=== PATIENT | male | born 1980 | race Caucasian/White ===

== ENCOUNTER 2019-07-06 21:27 | Emergency (ER) | payer SELFPAY ==
--- NOTE | 2019-07-06 23:29 | ER ---
Nurse's Notes [facility] Name: Basil Ibanez Age: 39 yrs Sex: Male : 1980 Arrival Date: 07/06/2019 Time: 21:30 Bed 27 Private MD: Diagnosis: Acute sinusitis Presentation: 07/06 22:36 Chief complaint: Patient states: BEEN SICK FOR FOUR WEEKS AND JUST CANT KICK IT. ls4 STARTED WITH FLU, THEN COUGH AND CONGESTION. STILL COUGHING, RUNNY NOSE. Coronavirus screen: The patient has NOT traveled to [place] in the past 14 days. Proceed with normal triage procedures. The patient has NOT had contact with known and/or suspected case of Coronavirus. Proceed with normal triage procedures. Ebola Screen: No symptoms or risks identified at this time. Initial Sepsis Screen: Does the patient meet any 2 criteria? No. Patient's initial sepsis screen is negative. Does the patient have a suspected source of infection? No. Patient's initial sepsis screen is negative. Risk Assessment: Do you want to hurt yourself or someone else? Patient reports no desire to harm self or others. Onset of symptoms is unknown. Care prior to arrival: BEEN TAKING OTC MEDS. Activity prior to arrival: None. Transition of care: patient was not received from another setting of care. 22:36 Method Of Arrival: Ambulatory ls4 22:36 Acuity: AC 3 ls4 Triage Assessment: 22:41 General: Appears uncomfortable, Behavior is calm, cooperative. Pain: Denies pain. ls4 Neuro: No deficits noted. Cardiovascular: No deficits noted. Respiratory: Reports cough that is productive, persistent Airway is patent Respiratory effort is even, unlabored, Respiratory pattern is regular, Breath sounds are clear bilaterally. the patient has moderate shortness of breath Denies shortness of breath at rest, on exertion, labored breathing, pain with respiration, pain with cough, pain with movement. GI: No deficits noted. : No deficits noted. Derm: No deficits noted. Musculoskeletal: No deficits noted. Historical: - Allergies: 22:41 No Known Allergies; ls4 - Home Meds: 22:41 None [Active]; ls4 - PMHx: 22:41 None; ls4 - PSHx: 22:41 None; ls4 - Immunization history:: Adult Immunizations up to date, Last tetanus immunization: unknown, Flu vaccine is not up to date. It has been more than one year since last vaccine. - Social history:: Smoking status: Patient reports the use of cigarette tobacco products, smokes one-half pack cigarettes per day, Patient/guardian denies using alcohol, street drugs. Screenin:45 Abuse screen: Denies threats or abuse. Denies injuries from another. Nutritional ls4 screening: No deficits noted. Tuberculosis screening: No symptoms or risk factors identified. Fall Risk None identified. Assessment: 22:44 General: SEE TRIAGE . ls4 23:45 Reassessment: Patient appears in no apparent distress at this time. No changes from ls4 previously documented assessment. Patient and/or family updated on plan of care and expected duration. Pain level reassessed. Patient is alert, oriented x 3, equal unlabored respirations, skin warm/dry/pink. Vital Signs: 22:13 BP 109 / 93; Pulse 97; Resp 17; Temp 97.9; Pulse Ox 98% ; lt1 23:45 BP 112 / 84; Pulse 78; Resp 14; Temp 98.0(O); Pulse Ox 98% on R/A; Pain 0/10; ls4 ED Course: 21:30 Patient arrived in ED. ag3 22:12 Africa Quarles, MARVIN is Primary Nurse. ls4 22:34 Lucero Ge F[facility]-C [facility]. kb 22:34 Fletcher Hernandez MD is Attending Physician. kb 22:41 Triage completed. ls4 22:41 Arm band placed on right wrist. ls4 22:45 Patient has correct armband on for positive identification. Bed in low position. Call ls4 light in reach. Side rails up X 1. Pulse ox on. NIBP on. 22:45 No provider procedures requiring assistance completed. ls4 22:59 Chest Pa And Lat (2 Views) XRAY In Process Unspecified. EDMS 23:46 Patient did not have IV access during this emergency room visit. ls4 Administered Medications: No medications were administered Outcome: 23:26 Discharge ordered by . kb 23:45 Discharged to home ambulatory. ls4 23:45 Condition: good 23:45 Discharge instructions given to patient, family, Instructed on discharge instructions, follow up and referral plans. Demonstrated understanding of instructions, follow-up care, medications, Prescriptions given X 1. 23:46 Patient left the ED. ls4 Signatures: Dispatcher [employer] EDLucero Ford, MARKET ASSET PROTECTION MANAGER-C MARKET ASSET PROTECTION MANAGER-Ckb Mague Ochoa ag3 Africa Quarles, RN RN ls4 Ekaterina Mccallum lt1 Corrections: (The following items were deleted from the chart) 23:46 23:42 Discharged to halfway. Report called to MINE ANGEL ls4 ls4
--- NOTE | 2019-07-06 23:29 | EDPHYS ---
Physician Documentation [facility] Name: Basil Ibanez Age: 39 yrs Sex: Male : 1980 Arrival Date: 07/06/2019 Time: 21:30 Bed 27 Private MD: ED Physician Fletcher Hernandez HPI: 07/06 23:33 This 39 yrs old Male presents to ER via Ambulatory with complaints of Cough. kb 23:33 The patient or guardian reports cough, that is intermittent, described as moderate, kb with no sputum, flu symptoms, low-grade fever. Onset: The symptoms/episode began/occurred 4 week(s) ago. Severity of symptoms: At their worst the symptoms were moderate, in the emergency department the symptoms are unchanged. Modifying factors: The symptoms are alleviated by nothing, the symptoms are aggravated by nothing. Associated signs and symptoms: Pertinent positives: fever, rhinorrhea, sore throat. The patient has not experienced similar symptoms in the past. The patient has not recently seen a physician. Pt reports he has been sick for 4 weeks. Reports it started out as the flu and then progressed. Reports fever subsided last week, but continues to have cough and congestion. Historical: - Allergies: 22:41 No Known Allergies; ls4 - Home Meds: 22:41 None [Active]; ls4 - PMHx: 22:41 None; ls4 - PSHx: 22:41 None; ls4 - Immunization history:: Adult Immunizations up to date, Last tetanus immunization: unknown, Flu vaccine is not up to date. It has been more than one year since last vaccine. - Social history:: Smoking status: Patient reports the use of cigarette tobacco products, smokes one-half pack cigarettes per day, Patient/guardian denies using alcohol, street drugs. ROS: 23:30 Neck: Negative for injury, pain, and swelling, Cardiovascular: Negative for chest pain, kb palpitations, and edema, Abdomen/GI: Negative for abdominal pain, nausea, vomiting, diarrhea, and constipation, Back: Negative for injury and pain, MS/Extremity: Negative for injury and deformity, Skin: Negative for injury, rash, and discoloration, Neuro: Negative for headache, weakness, numbness, tingling, and seizure. 23:30 Constitutional: Positive for fever. 23:30 ENT: Positive for rhinorrhea, sinus congestion. 23:30 Respiratory: Positive for cough, Negative for dyspnea on exertion, hemoptysis, orthopnea, pleurisy, shortness of breath, sputum production, wheezing. Exam: 23:32 Constitutional: This is a well developed, well nourished patient who is awake, alert, kb and in no acute distress. Head/Face: Normocephalic, atraumatic. ENT: Nares patent. No nasal discharge, no septal abnormalities noted. Tympanic membranes are normal and external auditory canals are clear. Oropharynx with no redness, swelling, or masses, exudates, or evidence of obstruction, uvula midline. Mucous membranes moist. Neck: Trachea midline, no thyromegaly or masses palpated, and no cervical lymphadenopathy. Supple, full range of motion without nuchal rigidity, or vertebral point tenderness. No Meningismus. Chest/axilla: Normal chest wall appearance and motion. Nontender with no deformity. No lesions are appreciated. Cardiovascular: Regular rate and rhythm with a normal S1 and S2. No gallops, murmurs, or rubs. Normal PMI, no JVD. No pulse deficits. Respiratory: Lungs have equal breath sounds bilaterally, clear to auscultation and percussion. No rales, rhonchi or wheezes noted. No increased work of breathing, no retractions or nasal flaring. Abdomen/GI: Soft, non-tender, with normal bowel sounds. No distension or tympany. No guarding or rebound. No evidence of tenderness throughout. Skin: Warm, dry with normal turgor. Normal color with no rashes, no lesions, and no evidence of cellulitis. MS/ Extremity: Pulses equal, no cyanosis. Neurovascular intact. Full, normal range of motion. Neuro: Awake and alert, GCS 15, oriented to person, place, time, and situation. Cranial nerves II-XII grossly intact. Motor strength 5/5 in all extremities. Sensory grossly intact. Cerebellar exam normal. Normal gait. Vital Signs: 22:13 BP 109 / 93; Pulse 97; Resp 17; Temp 97.9; Pulse Ox 98% ; lt1 23:45 BP 112 / 84; Pulse 78; Resp 14; Temp 98.0(O); Pulse Ox 98% on R/A; Pain 0/10; ls4 MDM: 22:34 Patient medically screened. kb 23:30 Data reviewed: vital signs, nurses notes. Data interpreted: Pulse oximetry: on room air kb is 98 %. Interpretation: normal. Counseling: I had a detailed discussion with the patient and/or guardian regarding: the historical points, exam findings, and any diagnostic results supporting the discharge/admit diagnosis, lab results, radiology results, the need for outpatient follow up, a family practitioner, to return to the emergency department if symptoms worsen or persist or if there are any questions or concerns that arise at home. 07/06 22:48 Order name: Strep; Complete Time: 23:28 kb 07/06 23:26 Order name: Throat Culture EDCA 07/06 22:43 Order name: Chest Pa And Lat (2 Views) XRAY kb Administered Medications: No medications were administered Disposition: 07/07 01:53 Co-signature as Attending Physician, Fletcher Hernandez MD. khoa Disposition: 07/06/19 23:26 Discharged to Home. Impression: Acute sinusitis. - Condition is Stable. - Discharge Instructions: Sinusitis, Adult, [id number]. - Prescriptions for Augmentin 875- 125 mg Oral Tablet - take 1 tablet by ORAL route every 12 hours for 10 days; 20 tablet. - Medication Reconciliation Form, Thank You Letter, Antibiotic Education, Prescription Opioid Use form. - Follow up: Private Physician; When: 2 - 3 days; Reason: Recheck today's complaints, Continuance of care, Re-evaluation by your physician. Follow up: Emergency Department; When: As needed; Reason: Worsening of condition. Signatures: Dispatcher [employer] [facility] Lucero Ge, REEFER TRUCK DRIVER-C REEFER TRUCK DRIVER-Ckb Fletcher Hernandez MD MD pkl Africa Quarles, RN RN ls4 Corrections: (The following items were deleted from the chart) 07/06 23:46 23:26 07/06/2019 23:26 Discharged to Home. Impression: Acute sinusitis. Condition is ls4 Stable. Forms are Medication Reconciliation Form, Thank You Letter, Antibiotic Education, Prescription Opioid Use. Follow up: Private Physician; When: 2 - 3 days; Reason: Recheck today's complaints, Continuance of care, Re-evaluation by your physician. Follow up: Emergency Department; When: As needed; Reason: Worsening of condition. kb
[2019-07-07 00:41] VITALS: O2SAT 98
[2019-07-07 00:43] VITALS: BP 112/84; TEMP 98
--- NOTE | 2019-07-07 08:25 | RAD REPORT ---
EXAM DESCRIPTION: RAD - Chest Pa And Lat (2 Views) - 07/06/2019 11:00 pm CLINICAL HISTORY: Cough;Congestion COMPARISON: CHEST PA AND LAT 2 VIEW dated 10/25/2008 TECHNIQUE: Frontal and lateral views of the chest were obtained. FINDINGS: The lungs are clear of a focal mass or consolidation. Interstitial pattern is similar or s lightly increased from 2009 remote imaging. No peribronchial thickening seen. Hilar regions are simil ar to comparison. Heart size is normal and central vasculature is within normal limits. No pleural effusion or pneumothorax seen. No acute bony finding noted. No aortic abnormality. IMPRESSION: No acute cardiopulmonary process. Lung parenchymal pattern is not substantially different from comparison. Very minimal component of in terstitial edema or infiltrate cannot be excluded.
== END 2019-07-06 23:46 | disposition home or self-care (01) ==
LOC: ER 21:27
DX: J01.90 Acute sinusitis, unspecified (principal); F17.210 Nicotine dependence, cigarettes, uncomplicated
CPT/HCPCS: 71046; 87070; 87081; 99283

== ENCOUNTER 2019-07-27 19:27 | Emergency (ER) | payer SELFPAY ==
--- NOTE | 2019-07-27 20:13 | RAD REPORT ---
EXAM DESCRIPTION: RAD - Chest Single View - 07/27/2019 8:02 pm CLINICAL HISTORY: fever, cough Chest pain. COMPARISON: Chest Pa And Lat (2 Views) dated 07/06/2019; CHEST PA AND LAT 2 VIEW dated 10/25/2008 FINDINGS: Portable technique limits examination quality. The lungs are grossly clear. The heart is normal in size. No displaced fractures. IMPRESSION: No acute intrathoracic process suspected.
[2019-07-27] MEDS ORDERED: LEVALBUTEROL 1.25 MG/3 ML NEB ONE (20:28)
[2019-07-27] MEDS ORDERED: IBUPROFEN 100 MG/5 ML UCUP ONE (20:37)
[2019-07-27] MEDS ORDERED: dexAMETHasone 4 MG/ML VIAL ONE (21:49)
--- NOTE | 2019-07-27 22:08 | EDPHYS ---
Physician Documentation [facility] Name: Basil Ibanez Age: 39 yrs Sex: Male : 1980 Arrival Date: 07/27/2019 Time: 19:30 Bed 15 Private MD: ED Physician Bobo Estrada HPI: 07/26 20:06 This 39 yrs old Male presents to ER via Ambulatory with complaints of jmm Productive Cough. 20:06 The patient or guardian reports cough. Onset: The symptoms/episode began/occurred jmm gradually, 1 month(s) ago. Modifying factors: The symptoms are alleviated by nothing, the symptoms are aggravated by nothing. Associated signs and symptoms: Pertinent positives: fever, sore throat. This is a 39 year old male with no chronic medical conditions that presents to the ED with complaints of sore throat, cough, beginning approx 1 month ago. Symptoms resolved after abx but have returned over the past week. Denies recent travel, denies known infectious exposure to covid. . Historical: - Allergies: 21:40 No Known Allergies; mg2 - Home Meds: 21:40 None [Active]; mg2 - PMHx: 21:40 None; mg2 - PSHx: 21:40 None; mg2 - Immunization history:: Flu vaccine is not up to date. - Social history:: Smoking status: Patient reports the use of cigarette tobacco products, smokes one-half pack cigarettes per day. ROS: 20:06 Constitutional: Positive for fever. jmm 20:06 ENT: Positive for sore throat. 20:06 Respiratory: Positive for cough. 20:06 All other systems are negative. Exam: 20:06 Constitutional: This is a well developed, well nourished patient who is awake, alert, jmm and in no acute distress. Head/Face: atraumatic. Eyes: EOMI, no conjunctival erythema appreciated 20:06 Chest/axilla: Normal chest wall appearance and motion. 20:06 Abdomen/GI: Non distended, soft Back: Normal ROM Skin: General appearance color normal MS/ Extremity: Moves all extremities, no obvious deformities appreciated, no edema noted to the lower extremities Neuro: Awake and alert, normal gait Psych: Behavior is normal, Mood is normal, Patient is cooperative and pleasant 20:06 ENT: Posterior pharynx: erythema, that is mild. 20:06 Cardiovascular: Rate: normal, Rhythm: regular, Pulses: no pulse deficits are appreciated. 20:06 Respiratory: the patient does not display signs of respiratory distress, Respirations: normal, Breath sounds: are clear throughout. Vital Signs: 19:48 BP 142 / 91; Pulse 88; Resp 18; Temp 99.1; Pulse Ox 100% on R/A; Weight 99.79 kg; mg2 Height 5 ft. 9 in. (175.26 cm); 22:16 BP 122 / 87; Pulse 89; Resp 18; Temp 98.5; Pulse Ox 100% on R/A; mg2 19:48 Body Mass Index 32.49 (99.79 kg, 175.26 cm) mg2 MDM: 19:52 Patient medically screened. [facility] 22:06 Data reviewed: vital signs, nurses notes. Counseling: I had a detailed discussion with [facility] the patient and/or guardian regarding: the historical points, exam findings, and any diagnostic results supporting the discharge/admit diagnosis, lab results, radiology results, the need for outpatient follow up, to return to the emergency department if symptoms worsen or persist or if there are any questions or concerns that arise at home. ED course: Patient states he feels much better. Lungs CTA on reevaluation. Patient is alert and non toxic in appearance in the ED. Patient is otherwise given strict return precautions. Patient understood and agrees with the plan of care. . 07/26 19:53 Order name: Flu; Complete Time: 20:[address] [facility] 07/26 19:53 Order name: Strep; Complete Time: 20:[address] [facility] 07/26 19:53 Order name: Chest Single View XRAY; Complete Time: 20:[address] [facility] 07/26 20:55 Order name: Throat Culture EDMS Administered Medications: 20:35 Drug: Xopenex (3) 1.25 mg Route: Inhalation; mg2 21:42 Follow up: Response: No adverse reaction mg2 21:54 Drug: Decadron 10 mg Route: IM; Site: right gluteus; mg2 22:17 Follow up: Response: No adverse reaction mg2 Disposition: 07/27 12:05 Co-signature as Attending Physician, Bobo Estrada MD I agree with the assessment and loyda plan of care. Disposition: 07/27/19 22:07 Discharged to Home. Impression: Acute bronchitis, Acute pharyngitis. - Condition is Stable. - Discharge Instructions: Acute Bronchitis, Adult, Pharyngitis. - Prescriptions for Zithromax Z- Jaswinder 250 mg Oral Tablet - take 1 tablet by ORAL route as directed for 5 days Day 1 - take two (2) tablets one time. Day 2, 3, 4 , 5 take one (1) tablet once daily.; 6 tablet. Albuterol Sulfate 90 mcg/actuation - inhale 1-2 puff by INHALATION route every 4-6 hours; 1 Inhaler. - Medication Reconciliation Form, Thank You Letter, Antibiotic Education, Prescription Opioid Use, Work release form form. - Follow up: Private Physician; When: 2 - 3 days; Reason: Recheck today's complaints, Continuance of care, Re-evaluation by your physician. - Notes: Please self quarantine for 14 days Return to the emergency department if you develop worsening symptoms, increased shortness of breath, chest pain or any other concerning symptoms. Signatures: Dispatcher [employer] EDMS Bobo Estrada MD MD cha Mickail, Joel, PA PA jmm Gardose, Michele, RN RN mg2 Corrections: (The following items were deleted from the chart) 07/26 22:17 22:07 07/27/2019 22:07 Discharged to Home. Impression: Acute bronchitis; Acute mg2 pharyngitis. Condition is Stable. Forms are Work release form, Medication Reconciliation Form, Thank You Letter, Antibiotic Education, Prescription Opioid Use. Follow up: Private Physician; When: 2 - 3 days; Reason: Recheck today's complaints, Continuance of care, Re-evaluation by your physician. ethan
--- NOTE | 2019-07-27 22:08 | ER ---
Nurse's Notes [facility] Name: Basil Ibanez Age: 39 yrs Sex: Male : 1980 Arrival Date: 07/27/2019 Time: 19:30 Bed 15 Private MD: Diagnosis: Acute bronchitis;Acute pharyngitis Presentation: 07/26 19:48 Chief complaint: Patient states: margo have cough and fever for almost 2 months now, i mg2 was here 1 month ago and did the cxray and sent home with abx, got better for a week and i am sick again. i have productive cough and my chest feels tight everytime i cough. Coronavirus screen: The patient has NOT traveled to a country currently being monitored by the [facility] within the last 14 days. Proceed with normal triage procedures. The patient has NOT had contact with any known and/or suspected case of coronavirus. Proceed with normal triage procedures. Ebola Screen: No symptoms or risks identified at this time. Initial Sepsis Screen: Does the patient meet any 2 criteria? No. Patient's initial sepsis screen is negative. Does the patient have a suspected source of infection? No. Patient's initial sepsis screen is negative. Risk Assessment: Do you want to hurt yourself or someone else? Patient reports no desire to harm self or others. 19:48 Method Of Arrival: Ambulatory mg2 19:48 Acuity: AC 3 mg2 Triage Assessment: 21:40 General: Appears in no apparent distress. comfortable, Behavior is calm, cooperative. mg2 Respiratory: Onset: The symptoms/episode began/occurred gradually, the patient has mild shortness of breath. Historical: - Allergies: 21:40 No Known Allergies; mg2 - Home Meds: 21:40 None [Active]; mg2 - PMHx: 21:40 None; mg2 - PSHx: 21:40 None; mg2 - Immunization history:: Flu vaccine is not up to date. - Social history:: Smoking status: Patient reports the use of cigarette tobacco products, smokes one-half pack cigarettes per day. Screenin:39 Abuse screen: Denies threats or abuse. Denies injuries from another. Nutritional mg2 screening: No deficits noted. Tuberculosis screening: No symptoms or risk factors identified. Fall Risk None identified. Assessment: 20:00 General: Appears in no apparent distress. comfortable. Pain: Denies pain. Neuro: Level mg2 of Consciousness is awake, alert, obeys commands, Oriented to person, place, time, situation. Cardiovascular: Rhythm is sinus rhythm. Respiratory: Airway is patent Respiratory effort is even, unlabored, Respiratory pattern is regular, symmetrical, Breath sounds are clear bilaterally. in mediastinum, right upper lobe, left upper lobe, right middle lobe, left lower lobe and right lower lobe. Respiratory: Reports cough that is productive. GI: No signs and/or symptoms were reported involving the gastrointestinal system. : No signs and/or symptoms were reported regarding the genitourinary system. EENT: No signs and/or symptoms were reported regarding the EENT system. Derm: Skin is intact, is healthy with good turgor, Skin is pink, warm \T\ dry. normal. Musculoskeletal: Circulation, motion, and sensation intact. Capillary refill < 3 seconds. Vital Signs: 19:48 BP 142 / 91; Pulse 88; Resp 18; Temp 99.1; Pulse Ox 100% on R/A; Weight 99.79 kg; mg2 Height 5 ft. 9 in. (175.26 cm); 22:16 BP 122 / 87; Pulse 89; Resp 18; Temp 98.5; Pulse Ox 100% on R/A; mg2 19:48 Body Mass Index 32.49 (99.79 kg, 175.26 cm) mg2 ED Course: 19:30 Patient arrived in ED. cl3 19:40 Macario Connro, RN is Primary Nurse. mg2 19:44 Leonard Garcia PA is PHCP. jm 19:44 Bobo Estrada MD is Attending Physician. [facility] 19:52 Triage completed. mg2 19:52 Arm band placed on. mg2 20:02 Chest Single View XRAY In Process Unspecified. EDMS 21:39 Patient has correct armband on for positive identification. mg2 21:39 No provider procedures requiring assistance completed. Patient did not have IV access mg2 during this emergency room visit. Administered Medications: 20:35 Drug: Xopenex (3) 1.25 mg Route: Inhalation; mg2 21:42 Follow up: Response: No adverse reaction mg2 21:54 Drug: Decadron 10 mg Route: IM; Site: right gluteus; mg2 22:17 Follow up: Response: No adverse reaction mg2 Outcome: 22:07 Discharge ordered by . jmm 22:16 Discharged to home ambulatory. mg2 22:16 Condition: stable 22:16 Discharge instructions given to patient, Instructed on discharge instructions, follow up and referral plans. medication usage, Demonstrated understanding of instructions, follow-up care, medications, Prescriptions given X 2. 22:17 Patient left the ED. mg2 Signatures: Dispatcher [employer] EDLeonard Patton PA PA jmm Gardose, Michele, RN RN mg2 Mercedes Em cl3
== END 2019-07-27 22:17 | disposition home or self-care (01) ==
LOC: ER 19:27
DX: J20.9 Acute bronchitis, unspecified (principal); J02.9 Acute pharyngitis, unspecified; F17.210 Nicotine dependence, cigarettes, uncomplicated
CPT/HCPCS: 71045; 87070; 87081; 87804; 96372; 99284

== ENCOUNTER 2022-12-20 13:45 | Emergency (ER) | payer OTHER ==
[2022-12-20] MEDS ORDERED: IBUPROFEN 400 MG TAB ONE (14:46)
[2022-12-20] MEDS ORDERED: IBUPROFEN 200 MG TAB PO ONE (14:46)
--- NOTE | 2022-12-20 15:11 | EDPHYS ---
Physician Documentation [facility] Name: Basil Ibanez Age: 42 yrs Sex: Male : 1980 Arrival Date: 12/20/2022 Time: 13:45 Bed 19 Private MD: ED Physician Haroldo Rodriguez HPI: 12/20 15:09 This 42 yrs old Male presents to ER via Ambulatory with complaints of Cough, Congestion.kb 15:09 The patient or guardian reports cough, flu symptoms. Onset: The symptoms/episode kb began/occurred 6 day(s) ago. Severity of symptoms: At their worst the symptoms were moderate, in the emergency department the symptoms are unchanged. Modifying factors: The symptoms are alleviated by nothing, the symptoms are aggravated by nothing. Associated signs and symptoms: Pertinent positives: fever, rhinorrhea, Pertinent negatives: sore throat, vomiting. The patient has not experienced similar symptoms in the past. The patient has not recently seen a physician. Pt reports cough, congestion, fever and post-tussive vomiting that started on Wednesday. Historical: - Allergies: 14:14 No Known Allergies; nj1 - PMHx: 14:14 Hypertensive disorder; nj1 - PSHx: 14:14 None; nj1 - Immunization history:: Client reports having NOT received the Covid vaccine. - Social history:: Smoking status: Patient reports the use of cigarette tobacco products, smokes one pack cigarettes per day. ROS: 15:08 Abdomen/GI: Negative for abdominal pain, nausea, vomiting, diarrhea, and constipation. kb 15:08 Constitutional: Positive for body aches, chills, fatigue, fever, malaise. 15:08 ENT: Positive for rhinorrhea, sinus congestion. 15:08 Respiratory: Positive for cough. 15:08 All other systems are negative. Exam: 15:08 Constitutional: This is a well developed, well nourished patient who is awake, alert, kb and in no acute distress. Head/Face: Normocephalic, atraumatic. ENT: Moist Mucous membranes Cardiovascular: Regular rate and rhythm with a normal S1 and S2. No gallops, murmurs, or rubs. No pulse deficits. Respiratory: Respirations even and unlabored. No increased work of breathing. Talking in full sentences Abdomen/GI: Soft, non-tender. No distention Skin: Warm, dry with normal turgor. Normal color. MS/ Extremity: Pulses equal, no cyanosis. Neurovascular intact. Full, normal range of motion. Neuro: Awake and alert, GCS 15, oriented to person, place, time, and situation. Moves all extremities. Normal gait. Vital Signs: 14:10 BP 165 / 105; Pulse 90; Resp 18; Temp 99.1(TE); Pulse Ox 98% ; Weight 90.72 kg; Height nj1 5 ft. 8 in. ; 15:46 BP 146 / 90; Pulse 89; Resp 15; Temp 98.7(O); Pulse Ox 98% ; jl7 14:10 Body Mass Index 30.41 (90.72 kg, 172.72 cm) nj1 MDM: 13:58 Patient medically screened. kb 15:08 Differential Diagnosis: Bronchitis Influenza Upper Respiratory Infection Viral Syndrome kb Pneumonia. Data reviewed: vital signs, nurses notes. I considered the following discharge prescriptions or medication management in the emergency department I discussed and recommended Over The Counter medications, Antibiotics: At this time antibiotics are not recommended. Test considered but Not performed: X-ray: chest x-ray considered, but lungs are clear bilaterally, o2 sat 98%. Counseling: I had a detailed discussion with the patient and/or guardian regarding: the historical points, exam findings, and any diagnostic results supporting the discharge/admit diagnosis, lab results, the need for outpatient follow up, a family practitioner, to return to the emergency department if symptoms worsen or persist or if there are any questions or concerns that arise at home. 12/20 14:11 Order name: Flu; Complete Time: 14:48 kb 12/20 14:11 Order name: COVID-19 SARS RT PCR; Complete Time: 15:03 kb Administered Medications: 14:40 Drug: Ibuprofen PO 600 mg Route: PO; nj1 15:46 Follow up: Response: Temperature is decreased jl7 Disposition Summary: 12/20/22 15:10 Discharge Ordered Location: Home Condition: Stable kb Diagnosis - Acute upper respiratory infection, unspecified kb Followup: kb - With: Emergency Department - When: As needed - Reason: Worsening of condition Followup: kb - With: Private Physician - When: 2 - 3 days - Reason: Recheck today's complaints, Continuance of care, Re-evaluation by your physician Discharge Instructions: - Discharge Summary Sheet kb - Upper Respiratory Infection, Adult, [id number] kb - Viral Respiratory Infection, [id number] kb Forms: - Medication Reconciliation Form kb - Thank You Letter kb - Antibiotic Education kb - Prescription Opioid Use kb - Patient Portal Instructions kb - Leadership Thank You Letter kb Prescriptions: - Tessalon Perles 100 mg Oral Capsule - take 1 capsule by ORAL route every 8 hours As needed; 15 capsule; Refills: 0, kb Product Selection Permitted Signatures: Dispatcher [employer] EDLucero Ford, CHARISC STEAMTABLE ATTENDANT RAILROAD-Tammy Caraballo, RN RN nj1 Lexy Arias RN jl7
--- NOTE | 2022-12-20 15:11 | ER ---
Nurse's Notes [facility] Name: Basil Ibanez Age: 42 yrs Sex: Male : 1980 Arrival Date: 12/20/2022 Time: 13:45 Bed 19 Private MD: Diagnosis: Acute upper respiratory infection, unspecified Presentation: 12/20 14:10 Chief complaint: Patient states: Sick since Wednesday, congested, cough, nausea, nj1 vomiting, diarrhea, headache. Was around nephew that was sicks. Coronavirus screen: Vaccine status: Patient reports being unvaccinated. Ebola Screen: Patient denies travel to an Ebola-affected area in the 21 days before illness onset. Initial Sepsis Screen: Does the patient meet any 2 criteria? No. Patient's initial sepsis screen is negative. Does the patient have a suspected source of infection? No. Patient's initial sepsis screen is negative. Risk Assessment: Do you want to hurt yourself or someone else? Patient reports no desire to harm self or others. Onset of symptoms was December 15, 2022. 14:10 Method Of Arrival: Ambulatory [facility] 14:10 Acuity: AC 4 nj1 Historical: - Allergies: 14:14 No Known Allergies; nj1 - PMHx: 14:14 Hypertensive disorder; nj1 - PSHx: 14:14 None; nj1 - Immunization history:: Client reports having NOT received the Covid vaccine. - Social history:: Smoking status: Patient reports the use of cigarette tobacco products, smokes one pack cigarettes per day. Screenin:45 [facility] ED Fall Risk Assessment (Adult) History of falling in the last 3 months, jl7 including since admission No falls in past 3 months (0 pts) Confusion or Disorientation No (0 pts) Intoxicated or Sedated No (0 pts) Impaired Gait No (0 pts) Mobility Assist Device Used No (0 pt) Altered Elimination No (0 pt) Score/Fall Risk Level 0 - 2 = Low Risk Oriented to surroundings, Maintained a safe environment. Abuse screen: Denies threats or abuse. Denies injuries from another. Nutritional screening: No deficits noted. Tuberculosis screening: No symptoms or risk factors identified. Assessment: 14:50 General: Appears in no apparent distress. uncomfortable, Behavior is calm, cooperative, jl7 appropriate for age. Pain: Denies pain. Neuro: Level of Consciousness is awake, alert, obeys commands, Oriented to person, place, time, situation. Cardiovascular: Patient's skin is warm and dry. Respiratory: Airway is patent Respiratory effort is even, unlabored, Respiratory pattern is regular, symmetrical, not auscultated. Derm: Skin is pink, warm \T\ dry. Vital Signs: 14:10 BP 165 / 105; Pulse 90; Resp 18; Temp 99.1(TE); Pulse Ox 98% ; Weight 90.72 kg; Height nj1 5 ft. 8 in. ; 15:46 BP 146 / 90; Pulse 89; Resp 15; Temp 98.7(O); Pulse Ox 98% ; jl7 14:10 Body Mass Index 30.41 (90.72 kg, 172.72 cm) nj1 ED Course: 13:48 Patient arrived in ED. rg4 13:54 Lucero Ge FNP-C is [facility]. kb 13:54 Haroldo Rodriguez MD is Attending Physician. kb 14:14 Triage completed. nj1 14:14 Arm band placed on right wrist. nj1 14:36 Lexy Arias, RN is Primary Nurse. jl7 14:45 Patient has correct armband on for positive identification. Provided Education on: use jl7 of call pena. 15:40 No provider procedures requiring assistance completed. Patient did not have IV access jl7 during this emergency room visit. Administered Medications: 14:40 Drug: Ibuprofen PO 600 mg Route: PO; nj1 15:46 Follow up: Response: Temperature is decreased jl7 Medication: 15:46 VIS not applicable for this client. jl7 Outcome: 15:10 Discharge ordered by . kb 15:40 Discharged to home ambulatory. jl7 15:40 Condition: stable 15:40 Discharge instructions given to patient, Instructed on discharge instructions, follow up and referral plans. medication usage, Demonstrated understanding of instructions, follow-up care, medications, Prescriptions given X 1. 15:50 Patient left the ED. jl7 Signatures: Lucero Ge FNP-C FNP-Mayuri Rich rg4 Lexy Arias, RN RN jl7 Tammy Buchanan RN RN nj1
[2022-12-20 16:08] VITALS: O2SAT 98
[2022-12-20 16:10] VITALS: BP 146/90; TEMP 98.7
== END 2022-12-20 15:50 | disposition home or self-care (01) ==
LOC: ER 13:45
DX: J06.9 Acute upper respiratory infection, unspecified (principal); I10 Essential (primary) hypertension; F17.210 Nicotine dependence, cigarettes, uncomplicated; Z20.822 Contact with and (suspected) exposure to COVID-19
CPT/HCPCS: 87635; 87804; 99283

== ENCOUNTER 2022-12-26 17:08 | Inpatient (IN) | payer OTHER ==
[2022-12-26 18:12] LABS: Absolute Lymphocytes (CBC) 1.6 K/uL (0.7-4.9); Lymphocytes % 10.2 % (15.3-44.8); MPV 7.7 fL (7.6-11.3); Platelets 348 thou/uL (152-406); RBC Red Blood Cell Count 4.54 M/uL (4.33-5.43)
[2022-12-26] MEDS ORDERED: NA CHLORIDE 0.9% 1,000 ML ONE (18:20)
[2022-12-26 18:27] LABS: Protime INR 1.36
[2022-12-26 18:28] LABS: Albumin 2.5 g/dL (3.4-5.0); Bilirubin Total 0.8 mg/dL (0.2-1.0); Protein, Total 7.8 g/dL (6.4-8.2)
[2022-12-26] MEDS ORDERED: NA CHLORIDE 0.9% 250 ML ONE (18:56)
[2022-12-26] MEDS ORDERED: AZITHROMYCIN 500 MG INJ IVPB ONE (18:56)
[2022-12-26] MEDS ORDERED: CEFTRIAXONE 1000 MG/VIAL ONE (18:56)
--- NOTE | 2022-12-26 19:15 | RAD REPORT ---
[facility]26 [facility] CLINICAL HISTORY: COUGH COMPARISON: Chest Single View dated 07/27/2019; Chest Pa And Lat (2 Views) dated 07/06/2019; CHEST PA AND LAT 2 VIEW dated 10/25/2008; Chest For Pe Angio dated 12/26/2022 TECHNIQUE: Portable AP view of the chest. FINDINGS: Right hilar masslike ovoid opacity, with adjacent mild patchy opacification. Left lung is clear. No pneumothorax or effusion. The cardiomediastinal contours are unremarkable. IMPRESSION: Right hilar masslike ovoid opacity, could represent a mass or focal airspace disease.
--- NOTE | 2022-12-26 19:40 | RAD REPORT ---
EXAM DESCRIPTION: CT - Chest For Pe Angio - 12/26/2022 7:02 pm CLINICAL HISTORY: SOB;Productive cough;Hemoptysis COMPARISON: No comparisons TECHNIQUE: Thin axial CT images of the chest were obtained following administration of 90 mL Isovue 370 IV contrast. Multiplanar reconstructions, and maximum intensity projection reconstructions were g enerated and reviewed. Exam utilizes a protocol for optimal evaluation of pulmonary arterial tree. All CT scans are performed using dose optimization technique as appropriate and may include automated exposure control or mA/KV adjustment according to patient size. FINDINGS: Pulmonary arteries are normal. No emboli or other suspicious finding. No acute or signific ant aorta findings. Small to moderate layering right pleural effusion. multifocal right lower lobe airspace opacities, wi th the largest being a lobulated lesion with multiple cavitary components including the most sizable posteroinferior component that demonstrates an air-fluid level. This measures 6.1 x 5.3 cm in greates t axial dimensions. A small irregular peripheral right upper lobe nodule with central cavitary focus measuring 1 centimeters seen on axial image 89. No pneumothorax. Prominent mediastinal lymph nodes largest in the subcarinal region measuring 2.6 x 1.5 centimeter. Pr ominent right hilar lymph nodes largest measuring 3.0 x 1.6 cm. No chest wall mass or abnormal axilli mariam lymphadenopathy. Healing posterior left eleventh rib fracture IMPRESSION: No evidence of acute central pulmonary emboli. Multifocal right lower lobe airspace opacities with a dominant masslike lesion demonstrating central cavitation, favored to represent cavitary or necrotizing pneumonia. Short-term interval follow-up CT in 1-3 months or following resolution of any acute symptoms is recommended to exclude an underlying m ass. Small irregular peripheral right upper lobe 1 cm nodules with central cavitation, should also be eval uated on short-term follow-up CT. The findings were communicated to Bobo Page on 12/26/2022 at 19:29 hours.
--- NOTE | 2022-12-26 20:12 | EDPHYS ---
Physician Documentation [facility] Name: Basil Ibanez Age: 42 yrs Sex: Male : 1980 Arrival Date: 12/26/2022 Time: 17:08 Bed 2 Private MD: ED Physician Luis Bronson HPI: 12/26 17:45 This 42 yrs old Male presents to ER via Ambulatory with complaints of Coughing up blood.cp 17:45 The patient or guardian reports cough, with productive sputum, that is purulent. Onset: cp The symptoms/episode began/occurred 3 week(s) ago. Associated signs and symptoms: Pertinent positives: fever, nausea, vomiting, hemoptysis, Pertinent negatives: diarrhea. Severity of symptoms: in the emergency department the symptoms are unchanged despite home interventions. Historical: - Allergies: 17:20 No Known Allergies; nj1 - PMHx: 17:20 Hypertensive disorder; nj1 - PSHx: 17:20 None; nj1 - Immunization history:: Client reports having NOT received the Covid vaccine. - Social history:: Smoking status: Patient reports the use of cigarette tobacco products, smokes one pack cigarettes per day. ROS: 17:50 Constitutional: Positive for fever. cp 17:50 Eyes: Negative for injury, pain, redness, and discharge. cp 17:50 ENT: Negative for drainage from ear(s), ear pain, sore throat, difficulty swallowing, difficulty handling secretions. 17:50 Cardiovascular: Negative for edema, palpitations. 17:50 Respiratory: Positive for cough, hemoptysis, shortness of breath. 17:50 Abdomen/GI: Positive for nausea and vomiting, Negative for diarrhea, constipation, anorexia. 17:50 Back: Negative for pain at rest, pain with movement. 17:50 Neuro: Negative for altered mental status, dizziness, headache, weakness. 17:50 All other systems are negative. Exam: 17:55 Constitutional: The patient appears in no acute distress, alert, awake, cp non-diaphoretic, non-toxic, well developed, well nourished, obviously ill. 17:55 Head/Face: Normocephalic, atraumatic. cp 17:55 Eyes: Periorbital structures: appear normal, Conjunctiva: normal, no exudate, no cp injection, Sclera: no appreciated abnormality, Lids and lashes: appear normal, bilaterally. 17:55 ENT: External ear(s): are unremarkable, Nose: is normal, Mouth: Lips: moist, Oral cp mucosa: pink and intact, moist, Posterior pharynx: is normal, airway is patent, no erythema, no exudate, Voice: is normal. 17:55 Neck: ROM/movement: is normal, is supple, without pain, no range of motions limitations, no meningismus. 17:55 Chest/axilla: Inspection: normal. 17:55 Cardiovascular: Rate: tachycardic, Rhythm: regular, Edema: is not appreciated, JVD: is not appreciated. 17:55 Respiratory: the patient does not display signs of respiratory distress, Respirations: labored breathing, is not present, intercostal retractions, are absent, Breath sounds: bronchial sounds, that are mild, are heard diffusely, stridor, is not appreciated, wheezing: is not appreciated. 17:55 Abdomen/GI: Inspection: abdomen appears normal, Palpation: abdomen is soft and non-tender, in all quadrants. 17:55 Back: vertebral tenderness, is not appreciated. 17:55 Neuro: Orientation: to person, place \T\ time. Mentation: is normal, Motor: moves all fours, strength is normal, Sensation: is normal. 18:08 ECG was reviewed by the Attending Physician. Vital Signs: 17:18 BP 144 / 103; Pulse 125; Resp 18; Temp 100.7(O); Pulse Ox 96% ; Weight 95.25 kg; Height nj1 5 ft. 9 in. ; Pain 0/10; 18:23 BP 146 / 98; Pulse 102; Resp 18; Pulse Ox 97% ; ko1 19:28 BP 138 / 89; Pulse 98; Resp 24 S; Temp 98.5(O); Pulse Ox 93% on R/A; jw7 20:30 BP 145 / 97; Pulse 101; Resp 21 S; Pulse Ox 93% on R/A; jw7 21:30 BP 147 / 96; Pulse 100; Resp 22 S; Pulse Ox 100% on R/A; jw7 17:18 Body Mass Index 31.01 (95.25 kg, 175.26 cm) nj 17:18 Pain Scale: Adult nj MDM: 17:27 Patient medically screened. 20:00 Data reviewed: vital signs, nurses notes, lab test result(s), EKG, radiologic studies, cp CT scan, plain films. 20:00 Antibiotic administration: Rocephin and Zithromax given. 20:05 Management of patient was discussed with the following: Leadite Worker: DR Mendoza who cp wants Vancomycin and Zosyn antibiotics to be given and will consult. Admit to hospitalist services. 20:10 Management of patient was discussed with the following: Hospitalist: Paolo Crisostomo NP will admit after discussion. 20:10 I considered the following discharge prescriptions or medication management in the emergency department Medications were administered in the Emergency Department. See MAR. Independent interpretation of the following test(s) in the Emergency Department X-Ray: My interpretation is image of chest shows consolidation right lung. Care significantly affected by the following chronic conditions: Hypertension. Counseling: I had a detailed discussion with the patient and/or guardian regarding the historical points, exam findings, and any diagnostic results supporting the discharge/admit diagnosis, lab results, radiology results, the need for further work-up and treatment in the hospital. Response to treatment: the patient's symptoms have markedly improved after treatment. 12/26 Order name: Blood Culture Adult (2) 12/2629 Order name: CBC with Diff; Complete Time: 18:37 12/26 18:37 Interpretation: Normal except: WBC 15.50; ARCHANA% 81.7; LYM% 10.2; NEUT A 12.7. 12/26 17:29 Order name: CMP; Complete Time: 18:37 12/26 18:38 Interpretation: Normal except: NA 132; K 3.0; GLUC 253; BUN 5; ALK 158; CA 8.4; ALB cp 2.5; GLOB 5.3; A/G 0.5. 12/26 16:29 Order name: Lactate w/ 2H reflex if indic.; Complete Time: 18:37 12/26 18:38 Interpretation: Reviewed. 12/26 Order name: Protime (+inr); Complete Time: 18:37 12/26 18:38 Interpretation: Abnormal: PT 15.0. 12/26 Order name: Ptt, Activated; Complete Time: 18:37 12/26 Order name: Urinalysis w/ reflexes 08/19 17:29 Order name: Influenza Screen (a \T\ B); Complete Time: 18:37 cp 12/26 17:29 Order name: COVID-19 SARS RT PCR; Complete Time: 19:30 cp 12/26 20:08 Order name: Acid Fast Bacilli Culture EDLA 12/26 20:08 Order name: Sputum Culture EDLA 12/26 20:08 Order name: Sputum Gram Stain EDLA 12/26 20:08 Order name: QUANTIFERON TB GOLD PLUS EDLA 12/26 18:07 Order name: XRAY Chest (1 view); Complete Time: 19:30 cp 12/26 19:30 Interpretation: Report review. 12/26 18:41 Order name: CT Chest For PE Angio; Complete Time: 19:54 cp 12/26 17:29 Order name: EKG; Complete Time: 17:29 cp 12/26 17:29 Order name: Accucheck; Complete Time: 19:11 cp 12/26 17:29 Order name: Cardiac monitoring; Complete Time: 18:06 cp 12/26 17:29 Order name: EKG - Nurse/Tech; Complete Time: 18:06 cp 12/26 17:29 Order name: IV Saline Lock - Large Bore; Complete Time: 18:06 cp 12/26 17:29 Order name: Labs collected and sent; Complete Time: 18:06 cp 12/26 17:29 Order name: O2 Per Protocol; Complete Time: 18:00 cp 12/26 17:29 Order name: O2 Sat Monitoring; Complete Time: 18:00 cp 12/26 17:29 Order name: Vital Signs; Complete Time: 18:00 cp EC:08 Rate is 105 beats/min. Rhythm is regular. OR interval is normal. QRS interval is cp normal. QT interval is normal. T waves are Inverted in lead aVR. Interpreted by me. Reviewed by me. Administered Medications: 18:13 Drug: NS 0.9% IV 1000 ml Route: IV; Rate: 1 bolus; Site: left antecubital; ko1 21:41 Follow up: Response: No adverse reaction; No change in condition; IV Status: Completed jw7 infusion; IV Intake: 1000ml 18:46 Drug: Rocephin IV 2 grams Route: IV; Rate: calculated rate; Site: left antecubital; ko1 22:01 Follow up: Response: No adverse reaction; IV Status: Completed infusion; IV Intake: [id number] 19:49 Drug: Zithromax IVPB 500 mg Route: IVPB; Infused Over: 1 hrs; Site: left antecubital; rv 21:42 Follow up: Response: No adverse reaction; IV Status: Completed infusion; IV Intake: jw7 500ml 20:05 CANCELLED (Physician Discretion): levofloxacin IVPB 750 mg 150 ml IVPB once over 90 minscp 21:29 Drug: Piperacillin-Tazobactam IVPB 3.375 grams Route: IVPB; Infused Over: 60 mins; jw7 Site: left antecubital; 22:01 Follow up: Response: No adverse reaction; IV Status: Completed infusion; IV Intake: jw7 100ml 22:01 Drug: vancoMYCIN IVPB 1.5 grams Route: IVPB; Rate: calculated rate; Site: left hand; jw7 22:02 Follow up: Response: No adverse reaction; IV Status: Infusion continued upon admission; jw7 IV Intake: 10ml Disposition Summary: 12/26/22 20:11 Hospitalization Ordered Hospitalization Status: Inpatient Admission cp Provider: Go Williamson cp [facility] cp Condition: Stable cp Problem: new cp Symptoms: have improved cp Bed/Room Type: Standard cp Room Assignment: 418(12/26/22 21:28) cg Diagnosis - Other pneumonia, unspecified organism cp - Sepsis, unspecified organism cp Forms: - Medication Reconciliation Form cp - SBAR form cp - Leadership Thank You Letter cp Signatures: Dispatcher [employer] Bobo Art PA PA cp Katie Koenig RN RN Ronnie Leal RN RN rv Waits, Jodi, RN RN jw7 Fariha Sarabia RN RN ko1 Tammy Buchanan RN RN nj1 Corrections: (The following items were deleted from the chart) 20:05 20:03 levofloxacin IVPB 750 mg 150 ml IVPB once over 90 mins ordered. cp cp 21:28 20:11 cp cg
--- NOTE | 2022-12-26 20:12 | ER ---
Nurse's Notes [facility] Name: Basil Ibanez Age: 42 yrs Sex: Male : 1980 Arrival Date: 12/26/2022 Time: 17:08 Bed 2 Private MD: Diagnosis: Other pneumonia, unspecified organism;Sepsis, unspecified organism Presentation: 12/26 17:18 Chief complaint: Patient states: Coughing mucusy blood since yesterday. Seen here last nj1 week, swab and told he had an upper respiratory infection. Coronavirus screen: Vaccine status: Patient reports being unvaccinated. Ebola Screen: Patient denies travel to an Ebola-affected area in the 21 days before illness onset. Initial Sepsis Screen: Does the patient meet any 2 criteria? HR > 90 bpm. No. Patient's initial sepsis screen is negative. Does the patient have a suspected source of infection? No. Patient's initial sepsis screen is negative. Risk Assessment: Do you want to hurt yourself or someone else? Patient reports no desire to harm self or others. Onset of symptoms was December 25, 2022. 17:18 Method Of Arrival: Ambulatory [facility] 17:18 Acuity: AC 3 nj1 Historical: - Allergies: 17:20 No Known Allergies; nj1 - PMHx: 17:20 Hypertensive disorder; nj1 - PSHx: 17:20 None; nj1 - Immunization history:: Client reports having NOT received the Covid vaccine. - Social history:: Smoking status: Patient reports the use of cigarette tobacco products, smokes one pack cigarettes per day. Screenin:40 [facility] ED Fall Risk Assessment (Adult) History of falling in the last 3 months, ko1 including since admission No falls in past 3 months (0 pts) Confusion or Disorientation No (0 pts) Intoxicated or Sedated No (0 pts) Impaired Gait No (0 pts) Mobility Assist Device Used No (0 pt) Altered Elimination No (0 pt) Score/Fall Risk Level 0 - 2 = Low Risk Oriented to surroundings, Maintained a safe environment, Educated pt \T\ family on fall prevention, incl call for assistance when getting out of bed, Assessed \T\ reinforced patient's understanding of fall precautions, Provided non-skid footwear, Hourly rounding (assess needs \T\ fall precautionary measures) done, Used ambulatory aids as needed (educated on \T\ assisted with), Used gait belt as appropriate. Abuse screen: Denies threats or abuse. Denies injuries from another. Nutritional screening: No deficits noted. Tuberculosis screening: No symptoms or risk factors identified. Assessment: 17:40 General: Appears in no apparent distress. uncomfortable, Behavior is calm, cooperative, ko1 appropriate for age. Pain: Denies pain. Neuro: No deficits noted. Cardiovascular: No deficits noted. Respiratory: Reports cough that is productive. GI: No deficits noted. : No deficits noted. EENT: No deficits noted. Derm: No deficits noted. Musculoskeletal: No deficits noted. 19:27 Reassessment: Patient appears in no apparent distress at this time. Patient and/or [facility] family updated on plan of care and expected duration. Pain level reassessed. Patient is alert, oriented x 3, equal unlabored respirations, skin warm/dry/pink. Patient denies pain at this time. 21:40 Reassessment: Patient appears in no apparent distress at this time. No changes from [facility] previously documented assessment. Patient and/or family updated on plan of care and expected duration. Pain level reassessed. Patient is alert, oriented x 3, equal unlabored respirations, skin warm/dry/pink. Patient denies pain at this time. Vital Signs: 17:18 BP 144 / 103; Pulse 125; Resp 18; Temp 100.7(O); Pulse Ox 96% ; Weight 95.25 kg; Height nj1 5 ft. 9 in. ; Pain 0/10; 18:23 BP 146 / 98; Pulse 102; Resp 18; Pulse Ox 97% ; ko1 19:28 BP 138 / 89; Pulse 98; Resp 24 S; Temp 98.5(O); Pulse Ox 93% on R/A; jw7 20:30 BP 145 / 97; Pulse 101; Resp 21 S; Pulse Ox 93% on R/A; jw7 21:30 BP 147 / 96; Pulse 100; Resp 22 S; Pulse Ox 100% on R/A; jw7 17:18 Body Mass Index 31.01 (95.25 kg, 175.26 cm) nj1 17:18 Pain Scale: Adult [facility] ED Course: 17:09 Patient arrived in ED. ts1 17:12 Bobo Wooadll PA is PHCP. cp 17:12 Luis Bronson MD is Attending Physician. cp 17:20 Triage completed. nj1 17:21 Arm band placed on left wrist. nj1 17:27 Fariha Sarabia, RN is Primary Nurse. ko1 17:40 Patient has correct armband on for positive identification. Bed in low position. Call ko1 light in reach. Side rails up X 1. Provided Education on: NA. Client placed on continuous cardiac and pulse oximetry monitoring. NIBP monitoring applied. shelter monitor on. Door closed. Noise minimized. Lights dimmed. Warm blanket given. 17:40 Inserted saline lock: 20 gauge in left antecubital area, using aseptic technique. Blood ko1 collected. 18:06 COVID-19 SARS RT PCR Sent. ko1 18:06 Influenza Screen (a \T\ B) Sent. ko1 18:06 Blood Culture Adult (2) Sent. ko1 18:06 CBC with Diff Sent. ko1 18:06 CMP Sent. ko1 18:06 Lactate w/ 2H reflex if indic. Sent. ko1 18:06 Protime (+inr) Sent. ko1 18:06 Ptt, Activated Sent. ko1 18:27 XRAY Chest (1 view) In Process Unspecified. EDMS 19:03 CT Chest For PE Angio In Process Unspecified. EDMS 20:10 Go Williamson MD is Hospitalizing Provider. cp 21:42 Inserted saline lock: 22 gauge hand, using aseptic technique. rv 21:42 No provider procedures requiring assistance completed. Patient admitted, IV remains in rv place. Administered Medications: 18:13 Drug: NS 0.9% IV 1000 ml Route: IV; Rate: 1 bolus; Site: left antecubital; ko1 21:41 Follow up: Response: No adverse reaction; No change in condition; IV Status: Completed jw7 infusion; IV Intake: 1000ml 18:46 Drug: Rocephin IV 2 grams Route: IV; Rate: calculated rate; Site: left antecubital; ko1 22:01 Follow up: Response: No adverse reaction; IV Status: Completed infusion; IV Intake: [id number] 19:49 Drug: Zithromax IVPB 500 mg Route: IVPB; Infused Over: 1 hrs; Site: left antecubital; rv 21:42 Follow up: Response: No adverse reaction; IV Status: Completed infusion; IV Intake: jw7 500ml 20:05 CANCELLED (Physician Discretion): levofloxacin IVPB 750 mg 150 ml IVPB once over 90 minscp 21:29 Drug: Piperacillin-Tazobactam IVPB 3.375 grams Route: IVPB; Infused Over: 60 mins; jw7 Site: left antecubital; 22:01 Follow up: Response: No adverse reaction; IV Status: Completed infusion; IV Intake: jw7 100ml 22:01 Drug: vancoMYCIN IVPB 1.5 grams Route: IVPB; Rate: calculated rate; Site: left hand; jw7 22:02 Follow up: Response: No adverse reaction; IV Status: Infusion continued upon admission; jw7 IV Intake: 10ml Medication: 21:42 VIS not applicable for this client. rv Intake: 21:41 IV: 1000ml; Total: 1000ml. jw7 21:42 IV: 500ml; Total: 1500ml. jw7 22:01 IV: 20ml; Total: 1520ml. jw7 22:01 IV: 100ml; Total: 1620ml. jw7 22:02 IV: 10ml; Total: 1630ml. jw7 Outcome: 20:11 Decision to Hospitalize by Provider. cp 22:02 Admitted to Tele accompanied by nurse, family with patient, via wheelchair, room 418, jw7 with chart. 22:02 Condition: stable 22:02 Instructed on the need for admit. 22:02 Patient left the ED. jw7 Signatures: Dispatcher [employer] EDMS Bobo Woodall PA PA cp Ronnie Leal RN RN rv Laura Rosado RN RN jw7 Fariha Sarabia RN RN ko1 Tammy Buchanan RN RN nj1 Kelsie Gee PAS PAS ts1
--- NOTE | 2022-12-26 20:43 | P.HP ---
Certification for Inpatient Patient admitted to: Inpatient With expected LOS: >2 Midnights Patient will require the following post-hospital care: None Practitioner: I am a practitioner with admitting privileges, knowledge of patient current condition, hospital course, and medical plan of care. Services: Services provided to patient in accordance with Admission requirements found in Title 42 Section 412.3 of the Code of Federal Regulations Patient History Date of Service: 12/26/22 Reason for admission: Sepsis, pneumonia, hemoptysis History of Present Illness: 42-year-old male with history of hypertension presents emergency department chief complaint of hemoptysis. He reports for the last 1 month he has been having cough, low-grade fevers, chills and feeling generally unwell but for the last 2 to 3 days has been having a small amount of hemoptysis worsening today. He said 2-3 episodes a day where he is coughing up primarily blood mixed with a small amount of sputum approximately a tablespoon at a time. He was evaluated in the emergency department his labs are significant for white blood cell 15.5 hemoglobin 15 hematocrit 45 sodium 132 potassium 3.0 glucose 253 lactic acid 1.6 blood cultures obtained CTA of the chest showed multifocal right lower lobe airspace opacities with a dominant masslike lesion demonstrating central cavitation, favored to represent cavitary necrotizing pneumonia. Short interval follow-up CT in 1 to 3 months or following resolution of any acute symptoms recommended to exclude underlying mass. Small irregular peripheral right upper lobe 1 cm nodule with central cavitation should also be evaluated on short-term CT. ED physician spoke with pulmonology who recommends patient be started on vancomycin, cefepime and admitted to the hospital. - Past Medical/Surgical History -: Hypertension -: None Psychosocial/ Personal History: 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, is employed with an office job - Family History Mother -: Diabetes Father -: Heart disease, Stroke - Social History Smoking Status: Current every day smoker Counseled patient to stop smoking for: less than 10 minutes Smoking therapy provided: Yes Place of Residence: Home Review of Systems 10-point ROS is otherwise unremarkable General: Fever, Chills, Malaise Respiratory: Cough, Shortness of Breath, Hemoptysis, SOB with Excertion Physical Examination - Physical Exam General: Alert, In no apparent distress, Oriented x3 HEENT: Atraumatic, PERRLA, Mucous membr. moist/pink, EOMI, Sclerae nonicteric Neck: Supple, 2+ carotid pulse no bruit, No LAD, Without JVD or thyroid abnormality Respiratory: Diminished, Crackles/rales Cardiovascular: Regular rate/rhythm, Normal S1 S2 Capillary refill: <2 Seconds Gastrointestinal: Normal bowel sounds, No tenderness Musculoskeletal: No tenderness Integumentary: No rashes Neurological: Normal speech, Normal strength at 5/5 x4 extr, Normal tone, Normal affect - Studies Laboratory Data (last 24 hrs) 12/26/22 12/26/22 12/26/22 17:55 17:55 17:55 WBC 15.50 H Hgb 15.1 Hct 45.0 Plt Count 348 PT 15.0 H INR 1.36 APTT 34.9 Sodium 132 L Potassium 3.0 L BUN 5 L Creatinine 0.83 Glucose 253 H Total Bilirubin 0.8 AST 31 ALT 40 Alkaline Phosphatase 158 H Microbiology Data (last 24 hrs): 12/26/22 17:55 Nasopharnyx Influenza Type A Antigen Screen - Final 12/26/22 17:55 Nasopharnyx Influenza Type B Antigen Screen - Final Assessment and Plan - Plan Assessment: Sepsis secondary to suspected cavitary/necrotizing pneumonia versus mass right lower lobe Hemoptysis Hyperglycemia Hypertension Plan: Sepsis secondary to suspected cavitary/necrotizing pneumonia versus mass right lower lobe Hemoptysis SIRS criteria present including leukocytosis, tachycardia. Source of infection confirmed on CT scan with suspected pneumonia right lower lobe. Lactate less than 2, blood cultures obtained. Continue broad-spectrum antibiotics vancomycin, Zosyn per pulmonology. Sputum culture, sputum Gram stain, TB/QuantiFERON gold, AFB test ordered. Continue with airborne isolation for now. Symptoms for about a month now, recently developed hemoptysis. About a tablespoon at a time, we will continue to monitor recheck H&H tonight. Pulmonology consult. Hyperglycemia Not a known diabetic, will obtain A1c in the morning, ACHS Accu-Chek, sliding scale insulin. Hypertension Continue home medications as appropriate. DVT PPX: SCD Code status: Full Discharge Plan: Home Plan to discharge in: 72 Hours - Advance Directives Does patient have a Living Will: No Does patient have a Durable POA for Healthcare: No - Code Status/Comfort Care Code Status Assessed: Yes (Full) Critical Care: No Time Spent Managing Pts Care (In Minutes): 55
[2022-12-26] MEDS ORDERED: VANCOMYCIN 1 GM/VIAL ONE (21:06)
[2022-12-26] MEDS ORDERED: VANCOMYCIN 500 MG/VIAL ONE (21:06)
[2022-12-26] MEDS ORDERED: PIPERACIL/TAZO 3.375 GM VIAL IV ONE (21:07)
[2022-12-26] MEDS ORDERED: NA CHLORIDE 0.9% 100 ML ONE (21:08)
[2022-12-26] MEDS ORDERED: NA CHLORIDE 0.9% 500 ML ONE (21:08)
[2022-12-26] MEDS ORDERED: NA CHLORIDE 0.9% 1,000 ML IV SCH (23:39)
[2022-12-26] MEDS ORDERED: ONDANSETRON 4 MG/2 ML VIAL IV PRN (23:39)
[2022-12-27] MEDS: NICOTINE 21 MG/PAT TD SCH ×2 (00:34→09:36)
[2022-12-27] MEDS: BENZONATATE 100 MG CAP PO PRN ×3 (00:34→21:43)
[2022-12-27] MEDS ORDERED: VANCOMYCIN 500 MG in NA CHLORIDE 0.9% 100 ML IVPB ONE (01:00)
[2022-12-27] MEDS: PIPER TAZO 3.375 GM in NA CHLORIDE 0.9% 100 ML IV SCH ×3 (06:14→21:26)
[2022-12-27] MEDS: ACETAMINOPHEN 500 MG TAB PO PRN ×2 (06:26→17:48)
[2022-12-27 07:25] LABS: Absolute Lymphocytes (CBC) 1.2 K/uL (0.7-4.9); Hematocrit 40.3 % (39.6-49.0); Lymphocytes % 8.7 % (15.3-44.8); MCV 98.9 fL (80-100); MPV 7.4 fL (7.6-11.3); Platelets 322 thou/uL (152-406); RBC Red Blood Cell Count 4.08 M/uL (4.33-5.43)
[2022-12-27 07:53] LABS: Potassium 3.1 mEq/L (3.5-5.1); Thyroid Stimulating Hormone 1.45 uIU/mL (0.358-3.740)
[2022-12-27] MEDS ORDERED: VANCOMYCIN 1 GM in NA CHLORIDE 0.9% 250 ML IVPB SCH (09:00)
--- NOTE | 2022-12-27 09:19 | P.CNS ---
Date of Consult: 12/27/22 Reason for Consult: Abnormal chest x-ray possible pneumonia Chief Complaint: Sepsis, pneumonia, hemoptysis History of Present Illness: Is 42 years of age sick for about a month has moved from [place] was initially coughing up some phlegm 2 weeks ago came into the emergency room and was discharged with diagnosis of upper respiratory tract viral infection became worse started having torey hemoptysis here in the hospital and was found to have a right lung pneumonia put on antibiotics and is an active smoker 1 pack a day planing of some fever and chills Allergies No Known Allergies Allergy (Unverified 12/26/22 23:39) Home Medications: lisinopriL [Lisinopril] 20 mg DAILY 12/26/22 - Past Medical/Surgical History -: Hypertension -: None Psychosocial/ Personal History: 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, is employed with an office job - Family History Mother Medical History: Diabetes Father Medical History: Heart disease, Stroke - Social History Smoking Status: Current every day smoker Alcohol use: No CD- Drugs: No Caffeine use: Yes Place of Residence: Home Review of Systems Unremarkable General: Weakness Respiratory: Cough, Hemoptysis Physical Examination Temp Pulse Resp BP Pulse Ox 100.0 F 102 H 16 137/91 H 94 12/27/22 06:26 12/27/22 04:00 12/27/22 04:00 12/27/22 04:00 12/27/22 04:00 General: Alert, In no apparent distress, Oriented x3 HEENT: Atraumatic Neck: Supple Respiratory: Clear to auscultation bilaterally, Diminished, Crackles/rales (Right base) Cardiovascular: No edema, Normal pulses, Regular rate/rhythm Laboratory Data (last 24 hrs) 12/26/22 12/26/22 12/26/22 17:55 17:55 17:55 WBC 15.50 H Hgb 15.1 Hct 45.0 Plt Count 348 PT 15.0 H INR 1.36 APTT 34.9 Sodium 132 L Potassium 3.0 L BUN 5 L Creatinine 0.83 Glucose 253 H Total Bilirubin 0.8 AST 31 ALT 40 Alkaline Phosphatase 158 H - Problems (1) Right lower lobe pneumonia Current Visit: Yes Status: Acute Plan: Patient is 42 years of age admitted with I suspect an acute right lower lobe pneumonia with mild area of cavitation elevated white count x-ray CAT scan reviewed also has some fever White count is declining. Cultures are pending new with IV antibiotics for now mycin and Zosyn once his white count is down can switch over to dose p.o. levofloxacin doxycycline is not at risk for resistant infection he is also complaining of hemoptysis will need to follow-up in about 2 to 4 weeks sure that his symptoms are resolving smoker is a risk for malignancy tuberculosis is not in the right area Qualifiers: Pneumonia type: due to unspecified organism Qualified Code(s): J18.9 - Pneumonia, unspecified organism
[2022-12-27] MEDS: VANCOMYCIN 1.5 GM in NA CHLORIDE 0.9% 500 ML IVPB SCH ×2 (09:36→21:25)
[2022-12-27] MEDS ORDERED: VANCOMYCIN 1.5 GM in NA CHLORIDE 0.9% 500 ML IVPB SCH (11:00)
--- NOTE | 2022-12-27 11:28 | P.PN ---
Subjective Date of Service: 12/27/22 Chief Complaint: Sepsis, pneumonia, hemoptysis No acute events since admission. He reports shortness of breath, cough, and hemoptysis. He reports previous incarceration for about 1.5 years, which was 8 years ago. To his knowledge, he has no known exposure to tuberculosis. He reports a 28 pack year smoking history. He denies any chest pain or palpitations. Review of Systems 10-point ROS is otherwise unremarkable Respiratory: Cough, Shortness of Breath, Hemoptysis Physical Examination - Vital Signs Temperature: 96.8 F Blood Pressure: 139/84 Pulse: 88 Respirations: 18 Pulse Ox (%): 95 - Physical Exam General: Alert, In no apparent distress, Oriented x3 HEENT: Atraumatic, Mucous membr. moist/pink, Sclerae nonicteric Neck: JVD not distended Respiratory: Diminished, Rhonchi/gurgles Cardiovascular: No edema, Regular rate/rhythm, No murmurs Gastrointestinal: Normal bowel sounds, Soft and benign, Non-distended, No tenderness Musculoskeletal: No clubbing Integumentary: No rashes Neurological: Normal speech, Normal affect - Studies Laboratory Data (last 24 hrs) 12/26/22 12/26/22 12/26/22 17:55 17:55 17:55 WBC 15.50 H Hgb 15.1 Hct 45.0 Plt Count 348 PT 15.0 H INR 1.36 APTT 34.9 Sodium 132 L Potassium 3.0 L BUN 5 L Creatinine 0.83 Glucose 253 H Total Bilirubin 0.8 AST 31 ALT 40 Alkaline Phosphatase 158 H Microbiology Data (last 24 hrs): 12/26/22 17:55 Nasopharnyx Influenza Type A Antigen Screen - Final 12/26/22 17:55 Nasopharnyx Influenza Type B Antigen Screen - Final Assessment And Plan - Plan # Sepsis secondary to Cavitary/Necrotizing Multifocal Pneumonia # Possible Right Lower Lobe Lung Mass # Prominent Mediastinal/Right Hilar Lymphadenopathy # Small-Moderate Right Pleural Effusion He met sepsis criteria based on temperature > 100.4 F, HR > 90 bpm, RR > 20 breaths/min, and WBC > 12,000, and the suspected source is pulmonary. - Radiology: - Chest x-ray = "right hilar masslike ovoid opacity, could represent a mass or focal airspace disease." - CT chest angiogram = "no evidence of acute central pulmonary emboli. Multifocal right lower lobe airspace opacities with a dominant masslike lesion demonstrating central cavitation, favored to represent cavitary or necrotizing pneumonia. Short-term interval follow-up CT in 1-3 months or following resolution of any acute symptoms is recommended to exclude an underlying mass. Small irregular peripheral right upper lobe 1 cm nodules with central cavitation, should also be evaluated on short-term follow-up CT." - Pulmonology consulted and spoke with Dr. Juárez - recommendations appreciated - Recommended continued IV antibiotics - Infectious Diseases consulted and spoke with Dr. Flower - recommendations appreciated - Recommended sputum culture, Gram stain, QuantiFERON gold, AFB - Sepsis order set was initiated - Initial Lactate was 1.6 - Blood cultures drawn before antibiotics were given - Broad spectrum antibiotics started: vancomycin + piperacillin-tazobactam - In regards to fluids: - 30 mL/kg of IV fluids was not administered given SBP > 90, MAP > 65, lactic acid < 4 - Airborne precautions # Hyperglycemia - Denies history of diabetes mellitus - Ordered HgbA1c - Correction scale insulin # Hypertension - Hold home benazepril given cough - PRN anti-hypertensives Go Williamson M.D.
--- NOTE | 2022-12-27 19:02 | P.PN ---
Date of Service: 12/28/22 Subjective: ROS: 10 point ROS as noted above, otherwise negative Physical Exam: Gen: Alert, Oriented, NAD HEENT: normal conjunctiva, sclera anicteric CV: regular rate & rhythm, no edema Pulm: labored respirations on room air, Diminished, Rhonchi/gurgles Abd: soft, nontender, nondistended MSK: no joint tenderness Integumentary: No rashes Neuro: normal speech, normal affect Problem List: 1. Sepsis secondary to Cavitary/Necrotizing Multifocal Pneumonia 2. Possible Right Lower Lobe Lung Mass 3. Prominent Mediastinal/Right Hilar Lymphadenopathy 4. Small-Moderate Right Pleural Effusion 5. Hyperglycemia 6. Hypertension PLAN CTA chest: no PE. Multifocal right lower lobe airspace opacities with a dominant masslike lesion demonstrating central cavitation, favored to represent cavitary or necrotizing pneumonia. Short-term interval follow-up CT in 1-3 months or following resolution of any acute symptoms is recommended to exclude an underlying mass. Small irregular peripheral right upper lobe 1 cm nodules with central cavitation, should also be evaluated on short-term follow-up CT. Pulmonology consulted continued IV Vancomycin / zosyn ID consulted blood cx: NGTD Sputum cx: pending Airborne precautions Denies history of diabetes mellitus Ordered HgbA1c Correction scale insulin Hold home benazepril given cough PRN anti-hypertensives VTE: SCD Code: Full Dispo: Home
[2022-12-28] MEDS: PIPER TAZO 3.375 GM in NA CHLORIDE 0.9% 100 ML IV SCH ×3 (04:53→20:49)
[2022-12-28 05:39] LABS: Urine Bacteria None Seen /HPF (<20); Urine Bilirubin NEGATIVE (Negative); Urine Blood Negative (Negative); Urine Clarity Clear (Clear); Urine Color Light-Yellow (Yellow); Urine Glucose NEGATIVE (Negative); Urine Protein NEGATIVE (Negative); Urine RBC None Seen /HPF (None Seen); Urine Urobilinogen Normal (Normal)
[2022-12-28 08:43] LABS: Absolute Lymphocytes (CBC) 1.4 K/uL (0.7-4.9); MCV 98.7 fL (80-100); MPV 7.5 fL (7.6-11.3); Platelets 351 thou/uL (152-406); RBC Red Blood Cell Count 4.05 M/uL (4.33-5.43)
[2022-12-28 08:50] LABS: Potassium 2.9 mEq/L (3.5-5.1)
[2022-12-28] MEDS: VANCOMYCIN 1.25 GM in NA CHLORIDE 0.9% 250 ML IVPB SCH ×2 (09:20→20:48)
[2022-12-28] MEDS: BENZONATATE 100 MG CAP PO PRN ×2 (09:20→20:49)
[2022-12-28] MEDS: PROMETHAZINE-DM 5 ML OSYR PO SCH ×3 (09:20→20:49)
[2022-12-28] MEDS: NICOTINE 21 MG/PAT TD SCH (09:21)
--- NOTE | 2022-12-28 09:46 | P.CNS ---
Date of Consult: 12/28/22 Reason for Consult: cavitary lung lesion Chief Complaint: Sepsis, pneumonia, hemoptysis History of Present Illness: Patient is a 42 yo male with a history of hypertension who presented to the ED with complaints of hemoptysis for [address] Chest on 12/26 showing "Multifocal right lower lobe airspace opacities with a dominant masslike lesion demonstrating central cavitation, favored to represent cavitary or necrotizing pneumonia. Small irregular peripheral right upper lobe 1 cm nodules with central cavitation." Patient was started on empiric antibiotics. ID and pulmonolgy consulted. 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, is employed with an office job - Family History Mother Medical History: Diabetes Father Medical History: Heart disease, Stroke - Social History Smoking Status: Current every day smoker Smoking therapy provided: Yes Patient receptive to therapy: Yes Alcohol use: No CD- Drugs: No Caffeine use: Yes Place of Residence: Home Review of Systems 10-point ROS is otherwise unremarkable Respiratory: Cough (x 1 month), Hemoptysis (x 3 days) Physical Examination Temp Pulse Resp BP Pulse Ox 98.4 F 80 16 144/84 H 93 12/28/22 08:00 12/28/22 08:00 12/28/22 08:00 12/28/22 08:00 12/28/22 08:00 General: Alert, In no apparent distress, Oriented x3 HEENT: Atraumatic, Normocephalic Neck: Supple, JVD not distended Respiratory: Normal air movement (on room air), Crackles/rales (Right) Cardiovascular: No edema, Normal pulses, Regular rate/rhythm Gastrointestinal: Normal bowel sounds, Soft and benign Musculoskeletal: No clubbing, No swelling Integumentary: No rashes, No breakdown Neurological: Normal speech, Normal strength at 5/5 x4 extr, Normal tone, Normal affect Laboratory Data - Reviewed Microbiology Data - Reviewed Imagings Data: - Reviewed Conclusions/Impression: Problem List Sepsis Cavitary Lesion vs Necrotizing Multifocal Pneumonia Right Hilar Lymphadenopathy Hypertension Hyperglycemia/ Diabetes Cavitary Lesion vs Necrotizing Pneumonia - CTA Chest 12/26: "No evidence of acute central pulmonary emboli. Multifocal right lower lobe airspace opacities with a dominant masslike lesion demonstrating central cavitation, favored to represent cavitary or necrotizing pneumonia. Short-term interval follow-up CT in 1-3 months or following resolu tion of any acute symptoms is recommended to exclude an underlying mass. Small irregular peripheral right upper lobe 1 cm nodules with central cavitation, should also be evaluated on short-term follow-up CT." - Blood cultures 12/26: No growth to date - Sputum culture 12/27: 3+ gram positive cocci and 1+ yeast - Leukocytosis improving. Afebrile >48 hours. - On Zosyn and Vancomycin (started 12/27) Travel: Recently moved back to [place] from [place]. Recommendations - Continue Vancomycin for now. Recommend starting on Cefepime and discontinuing Zosyn. - Follow up with final sputum culture results - Rule out TB: follow up AFB culture/smear and quantiFERON results. - Pulmonology on case. Pending bronchoscopy, likely tomorrow. - Monitor WBC and fever trends Case discussed with Hermelindo Zambrano
--- NOTE | 2022-12-28 10:50 | RAD REPORT ---
EXAM DESCRIPTION: RAD - Chest Single View - 12/28/2022 10:38 am CLINICAL HISTORY: pneumonia COMPARISON: Chest Single View dated 12/26/2022; Chest Single View dated 07/27/2019; Chest Pa And Lat ( 2 Views) dated 07/06/2019; CHEST PA AND LAT 2 VIEW dated 10/25/2008; Chest For Pe Angio dated 12/26/2022 FINDINGS: Lines: None. Lungs: Right perihilar masslike opacity is slightly decreased in size. The cavitary component has pro bably decreased since 12/26/2022. Pleural: No significant pleural effusions or pneumothorax. Cardiac: The heart size is within normal limits. Mediastinum: Within normal limits. Bones: No acute fractures. Other: None IMPRESSION: Very slight decrease in size of the right perihilar mass likely representing some decrea se in the cavitary component of the mass. The differential remains the same. Pneumonia favored but co ntinued short term follow-up recommended to exclude mass.
[2022-12-28] MEDS: KCL 20 MEQ/100 mL IVPB 20 MEQ/100 ML BAG IV SCH ×3 (11:25→17:49)
[2022-12-28] MEDS ORDERED: NA CHLORIDE 0.9% 500 ML ONE (11:26)
--- NOTE | 2022-12-28 12:17 | P.PN ---
Subjective Date of Service: 12/28/22 Chief Complaint: Sepsis, pneumonia, hemoptysis Patient is still complaining of hemoptysis some right-sided chest pain Review of Systems General: Weakness Respiratory: Cough, Hemoptysis Cardiovascular: Chest Pain Physical Examination - Vital Signs Temperature: 98.4 F Blood Pressure: 144/84 Pulse: 80 Respirations: 16 Pulse Ox (%): 93 - Physical Exam General: Alert Respiratory: Clear to auscultation bilaterally, Diminished Cardiovascular: No edema, Normal pulses Gastrointestinal: Normal bowel sounds, Soft and benign Assessment And Plan - Current Problems (Diagnosis) (1) Right lower lobe pneumonia Current Visit: Yes Status: Acute Plan: Patient admitted with right lower lobe pneumonia is to be superior segment complaining of hemoptysis plan to do a bronchoscopy tomorrow chest x-ray no change in his mild hypokalemia patient's hemoglobin A1c is significantly elevated continue with present antibiotic therapy plan to do a bronchoscopy tomorrow tuberculosis patient is afebrile scheduled cough syrup appears to have a necrotic right lower lobe pneumonia cultures pending Qualifiers: Pneumonia type: due to unspecified organism Qualified Code(s): J18.9 - Pneumonia, unspecified organism (2) Diabetes Current Visit: Yes Status: Acute Plan: His blood sugar is elevated globin A1c is also elevated start on metformin Qualifiers: Diabetes mellitus type: type 2 Diabetes mellitus complication status: with other specified complication
[2022-12-28] MEDS: METFORMIN HCL 500 MG TAB PO SCH (16:44)
--- NOTE | 2022-12-28 18:02 | EKG ---
Test Date: 2022-12-26 Test Time: 18:02:11 [employer]: VASILIY MEASUREMENT RESULTS: Intervals: Rate: 105 MD: 138 QRSD: 82 QT: 366 QTc: 483 Cardinal: P: 56 MD: 138 QRS: 42 T: 40 INTERPRETIVE STATEMENTS: Sinus tachycardia Cannot rule out Anterior infarct, age undetermined Abnormal ECG No previous ECG available for comparison Electronically Signed On 12-28-22 17:57:48 CDT by Juan Rajput
[2022-12-28] MEDS ORDERED: NA CHLORIDE 0.9% 100 ML ONE (20:44)
[2022-12-28] MEDS ORDERED: PIPERACIL/TAZO 3.375 GM VIAL IV ONE (20:54)
[2022-12-29] MEDS: PROMETHAZINE-DM 5 ML OSYR PO SCH ×2 (03:45→07:44)
[2022-12-29 03:58] LABS: Absolute Lymphocytes (CBC) 1.6 K/uL (0.7-4.9); Hematocrit 39.3 % (39.6-49.0); Lymphocytes % 15.9 % (15.3-44.8); MCV 98.9 fL (80-100); MPV 7.4 fL (7.6-11.3); Platelets 374 thou/uL (152-406); RBC Red Blood Cell Count 3.98 M/uL (4.33-5.43)
[2022-12-29 04:20] LABS: Potassium 3.1 mEq/L (3.5-5.1)
[2022-12-29] MEDS: PIPER TAZO 3.375 GM in NA CHLORIDE 0.9% 100 ML IV SCH ×2 (04:45→13:00)
[2022-12-29] MEDS: KCL 20 MEQ/100 mL IVPB 20 MEQ/100 ML BAG IV SCH ×2 (06:00→11:28)
[2022-12-29] MEDS ORDERED: NA CHLORIDE 0.9% 1,000 ML ONE (06:08)
[2022-12-29] MEDS ORDERED: Phenylephrine HCl 10 MG/ML 1 ML VIAL ONE ×2 (07:27→08:32)
[2022-12-29] MEDS ORDERED: LIDOCAINE 4% TOP SOLUTION ONE (07:27)
[2022-12-29] MEDS ORDERED: LIDOCAINE 1% MPF 30 ML VIAL ONE (07:36)
[2022-12-29] MEDS: METFORMIN HCL 500 MG TAB PO SCH (07:43)
--- NOTE | 2022-12-29 08:01 | RAD REPORT ---
EXAM DESCRIPTION: RAD - Chest Single View - 12/29/2022 4:40 am CLINICAL HISTORY: pneumonia COMPARISON: Chest Single View dated 12/28/2022; Chest Single View dated 12/26/2022; Chest Single View dated 07/27/2019; Chest Pa And Lat (2 Views) dated 07/06/2019 FINDINGS: Lines: None. Lungs: Right perihilar masslike consolidation is grossly similar to 12/28/2022 . Pleural: No significant pleural effusions or pneumothorax. Cardiac: The heart size is within normal limits. Mediastinum: Within normal limits. Bones: No acute fractures. Other: None IMPRESSION: Right perihilar consolidation is similar to 12/28/2022.
[2022-12-29] MEDS ORDERED: propofoL 200 MG/20 ML VIAL IV ONE (08:08)
[2022-12-29] MEDS ORDERED: LIDOCAINE 1% MPF 5 ML VIAL ONE (08:08)
--- NOTE | 2022-12-29 08:47 | P.OP ---
Date of Service: 12/29/22 (Bronchoscopy with BAL) Findings and Operative Technique Patient is 42 years of age admitted with right lower lobe superior segmental cavitary pneumonia he had significant hemoptysis as a reason for bronchoscopy after obtaining informed consent from the patient he was premedicated by anesthesia Very difficult time intubating the scope through his nasal passages very constricted Finally we had to insert bite block and do bronchoscopy orally 2 cords normal normal trachea normal patricio no endobronchial lesions visible through the right of the left respiratory tract back there was no evidence of any bleeding or purulence in his entire respiratory tract which is surprising Managed to quickly obtain a BAL from the right lower lobe as he kept on desatting patient states that he is not coughing up any further blood chest x-ray looks a little better his white count is down significantly AFP is negative plan to discharge him on Augmentin and doxycycline
--- NOTE | 2022-12-29 09:13 | P.PN ---
Date of Service: 12/29/22 Chief Complaint: Sepsis, pneumonia, hemoptysis Subjective: Improving. Patient denies any new or worsening complaints. No acute events reported overnight. s/p bronchoscopy this morning by Dr. Juárez. Physical Examination Temp Pulse Resp BP Pulse Ox 97 F 85 23 H 115/75 96 12/29/22 08:54 12/29/22 09:04 12/29/22 09:04 12/29/22 09:04 12/29/22 04:00 General: Alert, In no apparent distress, Oriented x3 HEENT: Atraumatic, Normocephalic Neck: Supple, JVD not distended Respiratory: Normal air movement. On room air. Mild crackles/rales (Right) Cardiovascular: No edema. Normal pulses. Regular rate/rhythm Gastrointestinal: Normal bowel sounds, Soft and benign. No tenderness. Musculoskeletal: No clubbing, No swelling Integumentary: No rashes, No breakdown Neurological: Normal speech. Normal strength at 5/5 x4 extr. Normal tone, Normal affect Laboratory Data - Reviewed Microbiology Data - Reviewed Imagings Data: - Reviewed Medications List: Reviewed Assessment and Plan Problem List Sepsis Cavitary Lesion vs Multifocal Pneumonia Right Hilar Lymphadenopathy Hypertension Hyperglycemia/ Diabetes Cavitary Lesion - CTA Chest 12/26: "No evidence of acute central pulmonary emboli. Multifocal right lower lobe airspace opacities with a dominant masslike lesion demonstrating central cavitation, favored to represent cavitary or necrotizing pneumonia. Short-term interval follow-up CT in 1-3 months or following resolut ion of any acute symptoms is recommended to exclude an underlying mass. Small irregular peripheral right upper lobe 1 cm nodules with central cavitation, should also be evaluated on short-term follow-up CT." - Blood cultures 12/26: No growth to date - Sputum culture 12/27: 3+ gram positive cocci and 1+ yeast - AFB pending - Leukocytosis improving. Afebrile >48 hours. - On Zosyn and Vancomycin (started 12/27) - Bronchoscopy 12/[address] Juárez, no evidence of purulence or bleeding reported. Recommendations - Continue current antibiotics for now. - Follow up with final sputum culture results - follow up AFB culture/smear and quantiFERON results. - Monitor WBC and fever trends See pulmonology and hospitalist notes for further recommendations. Case discussed with Hermelindo Zambrano
[2022-12-29 09:36] VITALS: O2SAT 96
[2022-12-29] MEDS ORDERED: NA CHLORIDE 0.9% 500 ML ONE (10:04)
[2022-12-29] MEDS: BENZONATATE 100 MG CAP PO PRN (10:31)
[2022-12-29] MEDS: NICOTINE 21 MG/PAT TD SCH (10:31)
[2022-12-29] MEDS: VANCOMYCIN 1.25 GM in NA CHLORIDE 0.9% 250 ML IVPB SCH (10:33)
[2022-12-29 11:43] VITALS: BP 140/82; TEMP 97.4
--- NOTE | 2022-12-29 12:27 | RAD REPORT ---
EXAM DESCRIPTION: RAD - Fluoroscopy <1 Hour - 12/29/2022 12:20 pm CLINICAL HISTORY: BRONCH COMPARISON: No comparisons FINDINGS/IMPRESSION: Three fluoroscopic images were submitted showing a bronchoscopy via the right m ainstem bronchus. Fluoro time: 25 seconds Cumulative Dose: 3.79 mGy
[2022-12-29] MEDS ORDERED: DOXYCYCLINE 100 MG CAP PO SCH (21:00)
[2022-12-29] MEDS ORDERED: AMOX/K CLAV 875 MG TAB PO SCH (21:00)
== END 2022-12-29 15:32 | disposition home or self-care (01) | DRG 871 ==
LOC: ER 17:08 → ERHOLD 20:21 → 4TH 21:37
PROVIDERS: ADMIT Internal Medicine; ATTEND Hospitalist
PROC: 3E043XZ Introduction of Vasopressor into Central Vein, Percutaneous Approach (ICD-10-PCS; 2022-12-26)
PROC: 0B9F8ZX Drainage of Right Lower Lung Lobe, Via Natural or Artificial Opening Endoscopic, Diagnostic (ICD-10-PCS; principal; 2022-12-29 08:00)
DX: A41.9 Sepsis, unspecified organism (principal); J18.9 Pneumonia, unspecified organism; R04.2 Hemoptysis; I10 Essential (primary) hypertension; E87.6 Hypokalemia; J98.4 Other disorders of lung; E11.65 Type 2 diabetes mellitus with hyperglycemia; R59.1 Generalized enlarged lymph nodes; F17.210 Nicotine dependence, cigarettes, uncomplicated; Z28.310 Unvaccinated for COVID-19
CPT/HCPCS: 36415; 71045; 71275; 76000; 80048; 80053; 80202; 81001; 82947; 83036; 83605; 84439; 84443; 85018; 85025; 85610; 85730; 86480; 87015; 87040; 87070; 87102; 87116; 87205; 87206; 87635; 87804; 88108; 88305; 88312; 93005; 96361; 96365; 96367; 96375; 99285; J0696; J2001; J2371; J2543; J2704; J3480; J7030; J7040; J7050; Q9967

== ENCOUNTER 2024-02-13 06:46 | Emergency (ER) | payer OTHER, SELFPAY ==
[2024-02-13] MEDS ORDERED: ONDANSETRON 4 MG/2 ML VIAL ONE (07:16)
[2024-02-13] MEDS ORDERED: HYDROMORPHONE HCL 1 MG/ML INJ ONE ×3 (07:17→09:48)
[2024-02-13 07:24] LABS: Absolute Basophils 0.1 K/uL (0-0.5); Absolute Eosinophils 0.2 K/uL (0-0.5); Absolute Lymphocytes (CBC) 1.4 K/uL (0.7-4.9); Absolute Monocytes 0.5 K/uL (0.1-1.3); Absolute Neutrophil 9.6 K/uL (1.8-8.0); Basophils % 0.5 % (0-1.3); Eosinophils % 1.3 % (0-4.4); Hematocrit 47.5 % (39.6-49.0); Hemoglobin 15.5 g/dL (13.6-17.9); MCHC 32.7 g/dL (32.0-36.0); MCV 119.3 fL (80-100); MPV 7.2 fL (7.6-11.3); Monocytes % 4.3 % (3.3-12.3); Neutrophils % 81.9 % (41.7-73.7); Platelets 300 thou/uL (152-406); RBC Red Blood Cell Count 3.98 M/uL (4.33-5.43); Red Cell Distribution Width 16.5 % (12.1-15.2)
[2024-02-13] MEDS ORDERED: NA CHLORIDE 0.9% 1,000 ML ONE (07:32)
[2024-02-13 07:43] LABS: Albumin 3.2 g/dL (3.4-5.0); Albumin/Globulin Ratio 0.7 (1.1-1.8); Bilirubin Total 0.9 mg/dL (0.2-1.0); Globulin 4.5 g/dL (2.3-3.5); Protein, Total 7.7 g/dL (6.4-8.2)
--- NOTE | 2024-02-13 07:52 | RAD REPORT ---
EXAMINATION: ONE VIEW CHEST XR CLINICAL INDICATION: Male, 43 years old.,CHEST PAIN TECHNIQUE: Frontal chest projection is submitted. Examination is limited by patient positioning and t echnique. COMPARISON: 02/10/2020 chest x-ray FINDINGS: The lungs are well inflated and clear. No pneumothorax or sizable effusion. The heart is normal in s ize. IMPRESSION: No acute intrathoracic abnormalities.
[2024-02-13 08:06] LABS: Blood Morphology Comment NOTED (NOT SEEN); Macrocytosis 3+; Platelet Estimate ADEQ; White Blood Cell Scan OK (OK)
--- NOTE | 2024-02-13 08:40 | RAD REPORT ---
EXAMINATION: CT Abdomen Pelvis W Contrast CLINICAL INDICATION: Male, 43 years old. ABD PAIN TECHNIQUE: CT abdomen and pelvis was performed, after the administration of IV contrast, as per [facility]. Axial, sagittal and coronal reconstructions were obtained. One or more of the following dose reduction techniques were used: Automated exposure control, adjustment of the mA and k V according to patient size, and iterative reconstruction. Unless otherwise specified, incidental findings do not require dedicated imaging follow-up. COMPARISON: CT chest 02/09/2023. CT abdomen and pelvis 11/15/2008 FINDINGS: LOWER CHEST: The visualized lung bases are clear. LIVER: Normal in size and contour. Diffuse parenchymal hypoattenuation suggesting steatosis. No focal lesion. BILIARY SYSTEM: Prominent caliber of the common bile duct, measuring 14 mm. No radiopaque calculi. SPLEEN: Normal size. No focal lesion. PANCREAS: Diffuse parenchymal swelling with adjacent pronounced fat stranding. There is adjacent muco cassie hyperenhancement of the gastric antrum and duodenum. Mildly prominent adjacent lymph nodes, likely reactive. ADRENALS: Left adrenal 1.6 cm nodule with mild central hypoattenuation, was perhaps partially visuali zed on the prior chest CT, but appears new the 2009 CT abdomen. KIDNEYS: Normal size and contour. No hydronephrosis. URINARY BLADDER: Decompressed limiting evaluation.. GASTROINTESTINAL TRACT: No evidence of free air, significant intra-abdominal free fluid, bowel obstru ction or abscess. APPENDIX: Normal appendix. LYMPH NODES: No lymphadenopathy. MUSCULOSKELETAL: No acute or suspicious osseous abnormality. ADDITIONAL FINDINGS: None. IMPRESSION: Findings of acute interstitial pancreatitis. No discrete fluid collections or region of hypoenhanceme nt to suggest necrosis. Prominent caliber of the common bile duct to the level of the ampulla, up to 14 mm of indeterminate e tiology. A distal obstructing mass or calculus that are not evident on CT are not excluded. Left adrenal 1.6 cm indeterminate nodule, appears new since 2008, may represent a slow-growing adenom a, although neoplastic etiologies should also be considered. Diffuse hepatic steatosis.
--- NOTE | 2024-02-13 08:55 | EDPHYS ---
Physician Documentation [facility] Name: Basil Ibanez Age: 43 yrs Sex: Male : 1980 Arrival Date: 02/13/2024 Time: 06:46 Bed 5 Private MD: ED Physician Daniel Nelson HPI: 02/12 07:21 This 43 yrs old Male presents to ER via Ambulatory with complaints of Abdominal Pain. sp3 07:21 43-year-old male with history of hypertension, diabetes presents to the ED with chief sp3 complaint epigastric pain radiating inferiorly towards his lower quadrants. Pain started yesterday evening and today is progressively get worse. He endorses mild emesis over the last few days in the morning without blood or coffee grounds. He denies fever, chest pain, shortness of breath, back pain, diarrhea, dysuria, travel history, potential bad food, known sick contacts, or any other signs or symptoms on ROS at this time.. Historical: - Allergies: 07:03 No Known Allergies; al5 - PMHx: 07:03 diabetes mellitus; Hypertensive disorder; al5 - PSHx: 07:03 None; al5 - Immunization history:: Adult Immunizations up to date. - Infectious Disease History:: Denies. - Social history:: Smoking status: Patient reports the use of cigarette tobacco products, smokes 1.5 packs per day, Patient uses alcohol, every other day has 3-4 drinks. ROS: 07:22 Constitutional: Negative for fever, chills, and weight loss, Eyes: Negative for injury, sp3 pain, redness, and discharge, ENT: Negative for injury, pain, and discharge, Neck: Negative for injury, pain, and swelling, Cardiovascular: Negative for chest pain, palpitations, and edema, Respiratory: Negative for shortness of breath, cough, wheezing, and pleuritic chest pain, Back: Negative for injury and pain, MS/Extremity: Negative for injury and deformity, Skin: Negative for injury, rash, and discoloration, Neuro: Negative for headache, weakness, numbness, tingling, and seizure, Psych: Negative for depression, anxiety, suicide ideation, homicidal ideation, and hallucinations, Allergy/Immunology: Negative for hives, rash, and allergies, Endocrine: Negative for neck swelling, polydipsia, polyuria, polyphagia, and marked weight changes, 07:22 All other systems are negative, Exam: 07:22 Constitutional: This is a well developed, well nourished patient who is awake, alert, sp3 and in no acute distress. Head/Face: Normocephalic, atraumatic. Eyes: Pupils equal round and reactive to light, extra-ocular motions intact. Lids and lashes normal. Conjunctiva and sclera are non-icteric and not injected. Cornea within normal limits. Periorbital areas with no swelling, redness, or edema. Neck: Trachea midline, no thyromegaly or masses palpated, and no cervical lymphadenopathy. Supple, full range of motion without nuchal rigidity, or vertebral point tenderness. No Meningismus. Chest/axilla: Normal chest wall appearance and motion. Nontender with no deformity. No lesions are appreciated. Cardiovascular: Regular rate and rhythm with a normal S1 and S2. No gallops, murmurs, or rubs. Normal PMI, no JVD. No pulse deficits. Respiratory: Lungs have equal breath sounds bilaterally, clear to auscultation and percussion. No rales, rhonchi or wheezes noted. No increased work of breathing, no retractions or nasal flaring. Back: No spinal tenderness. No costovertebral tenderness. Full range of motion. Skin: Warm, dry with normal turgor. Normal color with no rashes, no lesions, and no evidence of cellulitis. MS/ Extremity: Pulses equal, no cyanosis. Neurovascular intact. Full, normal range of motion. Neuro: Awake and alert, GCS 15, oriented to person, place, time, and situation. Cranial nerves II-XII grossly intact. Motor strength 5/5 in all extremities. Sensory grossly intact. Cerebellar exam normal. Normal gait. Psych: Awake, alert, with orientation to person, place and time. Behavior, mood, and affect are within normal limits. 07:22 Abdomen/GI: Epigastric pain to palpation without peritoneal signs, rebound or guarding. Mild tachycardia noted as well as hypertension., Vital Signs: 06:57 BP 165 / 110; Pulse 108; Resp 18; Temp 97.9; Pulse Ox 93% on R/A; Weight 95.25 kg; al5 Height 5 ft. 9 in. ; Pain 10/10; 08:39 BP 154 / 106; Pulse 95; Resp 16; Pulse Ox 95% ; bp 09:33 BP 138 / 91; Pulse 87; Resp 16; Pulse Ox 96% ; bp 06:57 Body Mass Index 31.01 (95.25 kg, 175.26 cm) al5 06:57 Pain Scale: Adult al5 MDM: 07:03 Patient medically screened. sp3 07:23 Data reviewed: vital signs, nurses notes, lab test result(s), EKG, radiologic studies. sp3 ED course: 43-year-old male with PMH above now with epigastric pain. Differential diagnosis includes biliary pathology including cholelithiasis, pancreatitis, gastritis, colitis, UTI/pyelonephritis spectrum, kidney stone, functional abdominal pain, among others. Workup will include laboratory values and a CT scan of the abdomen pelvis with IV contrast. General supportive care with IV fluids and pain and nausea medication as needed. Disposition pending workup and patient course.. 08:54 ED course: Patient with acute pancreatitis coupled with common bile duct dilatation to sp3 14 mm indicating possible mass versus stone. Will continue with pain medication and antibiotics x 1. Patient being transferred secondary to no GI coverage here and patient needing ERCP.. 10 06:49 Order name: CBC with Diff; Complete Time: 08:47 ec2 02/12 06:49 Order name: CMP; Complete Time: 08:03 ec2 02/12 06:49 Order name: Lipase; Complete Time: 08:03 ec2 02/12 06:57 Order name: Troponin High Sensitivity; Complete Time: 08:03 ec2 02/12 07:49 Order name: CBC Smear Scan; Complete Time: 08:47 EDMS 02/12 06:57 Order name: CXR XRAY; Complete Time: 08:03 ec2 02/12 06:57 Order name: CT Abd/Pelvis - IV Contrast Only; Complete Time: 08:47 ec2 02/12 06:49 Order name: IV Saline Lock; Complete Time: 07:22 ec2 02/12 06:49 Order name: Labs collected and sent; Complete Time: 07:22 ec2 02/12 07:00 Order name: EKG - Nurse/Tech; Complete Time: 07:06 ec2 Administered Medications: 07:22 Drug: HYDROmorphone IVP 1 mg IVP once Route: IVP; Site: right antecubital; rs5 09:01 Follow up: Response: No adverse reaction bp 07:22 Drug: Ondansetron IVP 4 mg IVP once; over 2 minutes Route: IVP; Site: right antecubital;rs5 09:01 Follow up: Response: No adverse reaction bp 07:39 Drug: NS 0.9% IV 1000 ml IV at 1 bolus Per protocol; 1000 mL bolus Route: IV; Rate: 1 rs5 bolus; Site: right antecubital; 09:01 Follow up: IV Status: Completed infusion; IV Intake: 1000ml bp 08:39 Drug: HYDROmorphone IVP 1 mg IVP once Route: IVP; Site: right forearm; bp 09:01 Follow up: Response: No adverse reaction bp 09:01 Drug: Piperacillin-Tazobactam IVPB 3.375 grams IVPB once over 60 mins; (mix in NS 100 bp mL) Route: IVPB; Infused Over: 60 mins; Site: right forearm; 09:37 Follow up: IV Status: Completed infusion; IV Intake: 100ml bp 09:45 Drug: Potassium Chloride IV 20 mEq IV at calculated rate once; administer over 1-2 rs5 hours Route: IV; Rate: calculated rate; Site: right antecubital; 10:08 Follow up: IV Status: Infusion continued upon transfer bp 09:57 Drug: HYDROmorphone IVP 1 mg IVP once Route: IVP; Site: right antecubital; rs5 10:08 Follow up: Response: No adverse reaction bp Disposition Summary: 02/13/24 08:54 Transfer Ordered Notes: Transfer Location: [facility] sp3 Reason: Higher level of care sp3 Condition: Stable sp3 Problem: new sp3 Symptoms: have worsened sp3 Accepting Physician: AWILDA [facility](02/13/24 10:11) bp Diagnosis - Acute pancreatitis, common bile duct dilatation, abdominal pain sp3 Forms: - Medication Reconciliation Form sp3 - SBAR form sp3 Signatures: Dispatcher [employer] Wilson Andujar RN RN bp Daniel Nelson MD MD sp3 Leobardo Bah RN RN rs5 Rene Coronel MD MD ec2 Radha Marie RN RN al5 Corrections: (The following items were deleted from the chart) 06:58 06:58 Abdomen Pelvis W Con+CT.RAD.BRZ ordered. EDMS EDMS 08:55 08:54 ED course: Patient with acute pancreatitis coupled with common bile duct sp3 dilatation to 14 mm indicating possible mass versus stone. Will continue with pain medication and antibiotics x 1.. sp3 10:11 08:[address] [facility] sp3 bp
--- NOTE | 2024-02-13 08:55 | ER ---
Nurse's Notes [facility] Name: Basil Ibanez Age: 43 yrs Sex: Male : 1980 Arrival Date: 02/13/2024 Time: 06:46 Bed 5 Private MD: Diagnosis: Acute pancreatitis, common bile duct dilatation, abdominal pain Presentation: 02/12 06:57 Chief complaint: Patient states: c/o epigastric/chest pain that radiates throughout the al5 whole abdomen and to his sides starting this morning. patient states he has been having nausea and vomiting for years. Coronavirus screen: At this time, the client does not indicate any symptoms associated with coronavirus-19. Ebola Screen: No symptoms or risks identified at this time. Initial Sepsis Screen: Does the patient meet any 2 criteria? HR > 90 bpm. No. Patient's initial sepsis screen is negative. Does the patient have a suspected source of infection? No. Patient's initial sepsis screen is negative. Risk Assessment: Do you want to hurt yourself or someone else? Patient reports no desire to harm self or others. Onset of symptoms was February 13, 2024. 06:57 Method Of Arrival: Ambulatory al5 06:57 Acuity: AC 3 al5 Triage Assessment: 07:04 General: Appears in no apparent distress. uncomfortable, Behavior is calm, cooperative. al5 Pain: Complains of pain in epigastric area Pain radiates to posterior aspect of left lateral abdomen, posterior aspect of right lateral abdomen and abdomen diffusely Pain currently is 10 out of 10 on a pain scale. EENT: No signs and/or symptoms were reported regarding the EENT system. Neuro: Level of Consciousness is awake, alert, obeys commands, Oriented to person, place, time, situation. Cardiovascular: Capillary refill < 3 seconds skin cold and clammy. Rhythm is sinus tachycardia. Respiratory: Airway is patent Respiratory effort is even, unlabored, Respiratory pattern is regular, symmetrical. GI: Abdomen is round non-distended, Reports lower abdominal pain, upper abdominal pain, nausea, vomiting. : No signs and/or symptoms were reported regarding the genitourinary system. Derm: Skin is intact, Skin is pink, warm \T\ dry. normal. Musculoskeletal: No signs and/or symptoms reported regarding the musculoskeletal system. Historical: - Allergies: 07:03 No Known Allergies; al5 - PMHx: 07:03 diabetes mellitus; Hypertensive disorder; al5 - PSHx: 07:03 None; al5 - Immunization history:: Adult Immunizations up to date. - Infectious Disease History:: Denies. - Social history:: Smoking status: Patient reports the use of cigarette tobacco products, smokes 1.5 packs per day, Patient uses alcohol, every other day has 3-4 drinks. Screenin:05 [facility] ED Fall Risk Assessment (Adult) History of falling in the last 3 months, al5 including since admission No falls in past 3 months (0 pts) Confusion or Disorientation No (0 pts) Intoxicated or Sedated No (0 pts) Impaired Gait No (0 pts) Mobility Assist Device Used No (0 pt) Altered Elimination No (0 pt) Score/Fall Risk Level 0 - 2 = Low Risk Oriented to surroundings, Maintained a safe environment, Hourly rounding (assess needs \T\ fall precautionary measures) done. Abuse screen: Denies threats or abuse. Denies injuries from another. Nutritional screening: No deficits noted. Tuberculosis screening: No symptoms or risk factors identified. Assessment: 07:05 Reassessment: see triage assessment. al5 07:06 GI: Bowel sounds present X 4 quads. Abd is soft X 4 quads Abdomen is tender to al5 palpation. 08:41 Reassessment: No changes from previously documented assessment. Patient is alert, bp oriented x 3, equal unlabored respirations, skin warm/dry/pink. 09:34 Reassessment: REPORT TO [facility] 1815. bp 10:09 Reassessment: EMS AT B/S FOR TRANSPORT. bp Vital Signs: 06:57 BP 165 / 110; Pulse 108; Resp 18; Temp 97.9; Pulse Ox 93% on R/A; Weight 95.25 kg; al5 Height 5 ft. 9 in. ; Pain 10/10; 08:39 BP 154 / 106; Pulse 95; Resp 16; Pulse Ox 95% ; bp 09:33 BP 138 / 91; Pulse 87; Resp 16; Pulse Ox 96% ; bp 06:57 Body Mass Index 31.01 (95.25 kg, 175.26 cm) al5 06:57 Pain Scale: Adult al5 ED Course: 06:47 Patient arrived in ED. jj6 06:57 Radha Marie, MARVIN is Primary Nurse. al5 06:59 Triage completed. al5 07:01 EKG done, by ED staff. dd2 07:03 Daniel Nelson MD is Attending Physician. sp3 07:05 Arm band placed on right wrist. Patient placed in the treatment room, on a stretcher. al5 EKG completed in triage. Results shown to MD. 07:06 No provider procedures requiring assistance completed. al5 07:06 Patient has correct armband on for positive identification. Call light in reach. Side al5 rails up X2. Provided Education on: plan of care. 07:18 Inserted saline lock: 20 gauge in right antecubital area, using aseptic technique. rs5 Blood collected. Flushed with 10 mL NS. 07:50 CXR XRAY In Process Unspecified. EDMS 08:03 CT Abd/Pelvis - IV Contrast Only In Process Unspecified. EDMS 08:55 initiated a transfer with Mando from the [facility] Transfer [place]. eb 09:19 connected the hospitalist closer on for [facility] with Dr. Nelson for patient eb transfer consultation. 09:24 administrative approval given by Mando Richey Rn/ patient has been accepted to [facility] room 1815/ Dr. Jonathan Vuong has accepted the patient in transfer/ report to be called to [phone]. 09:37 Patient transferred, IV remains in place. bp Administered Medications: 07:22 Drug: HYDROmorphone IVP 1 mg IVP once Route: IVP; Site: right antecubital; rs5 09:01 Follow up: Response: No adverse reaction bp 07:22 Drug: Ondansetron IVP 4 mg IVP once; over 2 minutes Route: IVP; Site: right antecubital;rs5 09:01 Follow up: Response: No adverse reaction bp 07:39 Drug: NS 0.9% IV 1000 ml IV at 1 bolus Per protocol; 1000 mL bolus Route: IV; Rate: 1 rs5 bolus; Site: right antecubital; 09:01 Follow up: IV Status: Completed infusion; IV Intake: 1000ml bp 08:39 Drug: HYDROmorphone IVP 1 mg IVP once Route: IVP; Site: right forearm; bp 09:01 Follow up: Response: No adverse reaction bp 09:01 Drug: Piperacillin-Tazobactam IVPB 3.375 grams IVPB once over 60 mins; (mix in NS 100 bp mL) Route: IVPB; Infused Over: 60 mins; Site: right forearm; 09:37 Follow up: IV Status: Completed infusion; IV Intake: 100ml bp 09:45 Drug: Potassium Chloride IV 20 mEq IV at calculated rate once; administer over 1-2 rs5 hours Route: IV; Rate: calculated rate; Site: right antecubital; 10:08 Follow up: IV Status: Infusion continued upon transfer bp 09:57 Drug: HYDROmorphone IVP 1 mg IVP once Route: IVP; Site: right antecubital; rs5 10:08 Follow up: Response: No adverse reaction bp Medication: 07:05 VIS not applicable for this client. al5 Intake: 09:01 IV: 1000ml; Total: 1000ml. bp 09:37 IV: 100ml; Total: 1100ml. bp Outcome: 08:54 ER care complete, transfer ordered by MD. [email or web address] 09:36 Transferred by ground EMS to [facility], Transfer form completed. bp 09:36 Condition: stable 09:36 Instructed on the need for transfer, 10:11 Patient left the ED. bp Signatures: Dispatcher [employer] EDWilson Harrison RN Corrine Jain Setul, MD MD sp3 Kita Martínez6 Leobardo Bah RN RN rs5 Radha Marie RN RN al5 MELODY STERN RN RN dd2
[2024-02-13] MEDS ORDERED: NA CHLORIDE 0.9% 100 ML ONE (08:57)
[2024-02-13] MEDS ORDERED: PIPERACIL/TAZO 3.375 GM VIAL IV ONE (08:57)
[2024-02-13] MEDS ORDERED: KCL 20 MEQ/100 mL IVPB 100 ML IV ONE (09:41)
[2024-02-13] MEDS ORDERED: NA CHLORIDE 0.9% 250 ML ONE (09:48)
[2024-02-13 10:42] VITALS: TEMP 97.9
[2024-02-13 10:45] VITALS: BP 138/91; O2SAT 96
--- NOTE | 2024-02-14 11:55 | EKG ---
Test Date: 2024-02-13 Test Time: 06:58:41 [employer] Manager: RICKY MEASUREMENT RESULTS: Intervals: Rate: 102 VA: 142 QRSD: 86 QT: 392 QTc: 510 [place]: P: 61 VA: 142 QRS: 42 T: 52 INTERPRETIVE STATEMENTS: Sinus tachycardia Right atrial enlargement Borderline ECG Compared to ECG 02/09/2023 03:03:34 Atrial abnormality now present Sinus rhythm no longer present Electronically Signed On 02-14-24 11:52:17 CDT by Chang Craft
== END 2024-02-13 10:11 | disposition short-term general hospital (02) ==
LOC: ER 06:46
DX: K85.90 Acute pancreatitis without necrosis or infection, unspecified (principal); K83.8 Other specified diseases of biliary tract; F17.210 Nicotine dependence, cigarettes, uncomplicated
CPT/HCPCS: 36415; 71045; 74177; 80053; 83690; 84484; 85025; 93005; 99285; J1170; J2405; J2543; J3480; J7030; J7050; Q9967

== ENCOUNTER 2024-08-10 01:18 | Emergency (ER) | payer SELFPAY ==
--- NOTE | 2024-08-10 01:54 | ER ---
Nurse's Notes [facility] Name: Basil Ibanez Age: 44 yrs Sex: Male : 1980 Arrival Date: 08/10/2024 Time: 01:18 Bed 5 Private MD: Diagnosis: Uvulitis Presentation: 08/10 01:36 Chief complaint: Patient states: throat feels like it is full of blisters. Coronavirus vc1 screen: Client denies travel out of the [place] in the last 14 days. cough unrelated to allergies, fever, sore throat. Coronavirus screen: Client presents with at least one sign or symptom that may indicate coronavirus-19. Ebola Screen: Patient negative for fever greater than or equal to 101.5 degrees Fahrenheit, and additional compatible Ebola Virus Disease symptoms Patient denies exposure to infectious person. Patient denies travel to an Ebola-affected area in the 21 days before illness onset. No symptoms or risks identified at this time. Initial Sepsis Screen: Does the patient meet any 2 criteria? HR > 90 bpm. No. Patient's initial sepsis screen is negative. Does the patient have a suspected source of infection? No. Patient's initial sepsis screen is negative. Risk Assessment: Do you want to hurt yourself or someone else? Patient reports no desire to harm self or others. Onset of symptoms was August 10, 2024. 01:36 Method Of Arrival: Ambulatory vc1 01:36 Acuity: AC 4 vc1 Triage Assessment: 01:42 General: Appears in no apparent distress. uncomfortable, well groomed, Behavior is vc1 calm, cooperative, appropriate for age, Reports fever for feeling ill for 1-2 days. Pain: Complains of pain in throat. EENT: Reports pain when swallowing. Neuro: Level of Consciousness is awake, alert, obeys commands, Oriented to person, place, time, situation, Appropriate for age. Cardiovascular: Capillary refill < 3 seconds Patient's skin is warm and dry. Respiratory: Reports cough that is Airway is patent Respiratory effort is even, unlabored, Respiratory pattern is regular, symmetrical, Breath sounds are clear bilaterally. GI: No deficits noted. No signs and/or symptoms were reported involving the gastrointestinal system. : No deficits noted. No signs and/or symptoms were reported regarding the genitourinary system. Derm: Skin is intact, is healthy with good turgor, Skin is dry, Skin is normal, Skin temperature is warm. Musculoskeletal: Circulation, motion, and sensation intact. Range of motion: intact in all extremities. Historical: - Allergies: 01:37 No Known Allergies; vc1 - PMHx: 01:37 diabetes mellitus; Hypertensive disorder; vc1 - PSHx: 01:37 None; vc1 - Immunization history:: Client reports having NOT received the Covid vaccine. Flu vaccine is not up to date. - Infectious Disease History:: Denies. - Social history:: Smoking status: Patient reports the use of cigarette tobacco products, smokes one pack cigarettes per day. - Family history:: not pertinent. Screenin:43 [facility] ED Fall Risk Assessment (Adult) History of falling in the last 3 months, vc1 including since admission No falls in past 3 months (0 pts) Confusion or Disorientation No (0 pts) Intoxicated or Sedated No (0 pts) Impaired Gait No (0 pts) Mobility Assist Device Used No (0 pt) Altered Elimination No (0 pt) Score/Fall Risk Level 0 - 2 = Low Risk Oriented to surroundings, Maintained a safe environment, Educated pt \T\ family on fall prevention, incl call for assistance when getting out of bed, Hourly rounding (assess needs \T\ fall precautionary measures) done. Abuse screen: Denies threats or abuse. Nutritional screening: No deficits noted. Tuberculosis screening: No symptoms or risk factors identified. Assessment: 02:15 Reassessment: Patient appears in no apparent distress at this time. Patient and/or jb4 family updated on plan of care and expected duration. Pain level reassessed. Patient is alert, oriented x 3, equal unlabored respirations, skin warm/dry/pink. Vital Signs: 01:36 BP 170 / 109; Pulse 112; Resp 16; Temp 98; Pulse Ox 98% ; Weight 95.25 kg; Height 5 ft. vc1 10 in. ; Pain 1/; 01:36 Body Mass Index 30.13 (95.25 kg, 177.8 cm) vc1 01:36 Pain Scale: Adult vc1 ED Course: 01:25 Patient arrived in ED. gm2 01:26 Boaz Maria MD is Attending Physician. rt 01:37 Triage completed. vc1 01:38 Arm band placed on right wrist. vc1 01:46 Patient has correct armband on for positive identification. Bed in low position. Call vc1 light in reach. 02:15 Provided Education on: discharge isntructions.. jb4 02:15 No provider procedures requiring assistance completed. Patient did not have IV access jb4 during this emergency room visit. Administered Medications: 02:15 Drug: predniSONE PO 20 mg PO once Route: PO; jb4 02:15 Follow up: Response: Medication administered at discharge. jb4 02:16 Drug: Amoxicillin-Clavulanate PO 875 mg PO once Route: PO; jb4 02:16 Follow up: Response: Medication administered at discharge. jb4 Medication: 01:46 VIS not applicable for this client. vc1 Outcome: 01:54 Discharge ordered by . rt 02:15 Discharged to home ambulatory, jb4 02:15 Condition: stable 02:15 Discharge instructions given to patient, Instructed on discharge instructions, follow up and referral plans. medication usage, Demonstrated understanding of instructions, follow-up care, medications, Prescriptions given X 1, 02:17 Patient left the ED. jb4 Signatures: Manuel Lazaro, RN RN jb4 Alina Mckeon RN RN vc1 Boaz Maria MD MD rt Roxann Luo 2
--- NOTE | 2024-08-10 01:54 | EDPHYS ---
Physician Documentation [facility] Name: Basil Ibanez Age: 44 yrs Sex: Male : 1980 Arrival Date: 08/10/2024 Time: 01:18 Bed 5 Private MD: ED Physician Boaz Maria HPI: 08/10 02:12 This 44 yrs old Male presents to ER via Ambulatory with complaints of Cough, rt Congestion, Sore Throat, Fever, Pain. 02:12 Patient presents to the ED with 2 days of cough, sore throat, reports that he saw rt blisters in the back of his throat. Denies other acute complaints at this time, symptoms are mild in severity, no other aggravating or alleviating factors.. Historical: - Allergies: 01:37 No Known Allergies; vc1 - PMHx: 01:37 diabetes mellitus; Hypertensive disorder; vc1 - PSHx: 01:37 None; vc1 - Immunization history:: Client reports having NOT received the Covid vaccine. Flu vaccine is not up to date. - Infectious Disease History:: Denies. - Social history:: Smoking status: Patient reports the use of cigarette tobacco products, smokes one pack cigarettes per day. - Family history:: not pertinent. ROS: 02:12 Constitutional: Negative for fever, chills, and weight loss, Cardiovascular: Negative rt for chest pain, palpitations, and edema, Abdomen/GI: Negative for abdominal pain, nausea, vomiting, diarrhea, and constipation, MS/Extremity: Negative for injury and deformity, Skin: Negative for injury, rash, and discoloration, Neuro: Negative for headache, weakness, numbness, tingling, and seizure, 02:12 ENT: Positive for rhinorrhea, sore throat, 02:12 Respiratory: Positive for cough, Negative for shortness of breath, Exam: 02:12 Constitutional: This is a well developed, well nourished patient who is awake, alert, rt and in no acute distress. Head/Face: Normocephalic, atraumatic. Chest/axilla: Normal chest wall appearance and motion. Nontender with no deformity. No lesions are appreciated. Cardiovascular: Regular rate and rhythm with a normal S1 and S2. No gallops, murmurs, or rubs. Normal PMI, no JVD. No pulse deficits. Respiratory: Lungs have equal breath sounds bilaterally, clear to auscultation and percussion. No rales, rhonchi or wheezes noted. No increased work of breathing, no retractions or nasal flaring. Abdomen/GI: Soft, non-tender, with normal bowel sounds. No distension or tympany. No guarding or rebound. No evidence of tenderness throughout. Skin: Warm, dry with normal turgor. Normal color with no rashes, no lesions, and no evidence of cellulitis. MS/ Extremity: Pulses equal, no cyanosis. Neurovascular intact. Full, normal range of motion. 02:12 ENT: Uvula is edematous, scant exudate noted, uvula is midline. Vital Signs: 01:36 BP 170 / 109; Pulse 112; Resp 16; Temp 98; Pulse Ox 98% ; Weight 95.25 kg; Height 5 ft. vc1 10 in. ; Pain 1/10; 01:36 Body Mass Index 30.13 (95.25 kg, 177.8 cm) vc1 01:36 Pain Scale: Adult vc1 MDM: 01:46 Medical Screening Exam initiated rt 02:12 Differential Diagnosis: Other Uvulitis, strep, viral syndrome. Data reviewed: vital rt signs, nurses notes. I considered the following discharge prescriptions or medication management in the emergency department Medications were administered in the Emergency Department. See MAR. Test considered but Not performed: Other Details After discussion with patient, will treat empirically without testing. Test considered but Not performed: CT: Low suspicion for MOUNTER CLARINETS, RPA, [employer] angina clinically, CT scan is not indicated. Care significantly affected by the following chronic conditions: Diabetes, Hypertension. Counseling: I had a detailed discussion with the patient and/or guardian regarding the historical points, exam findings, and any diagnostic results supporting the discharge/admit diagnosis, the need for outpatient follow up, to return to the emergency department if symptoms worsen or persist or if there are any questions or concerns that arise at home. Administered Medications: 02:15 Drug: predniSONE PO 20 mg PO once Route: PO; jb4 02:15 Follow up: Response: Medication administered at discharge. jb4 02:16 Drug: Amoxicillin-Clavulanate PO 875 mg PO once Route: PO; jb4 02:16 Follow up: Response: Medication administered at discharge. jb4 Disposition Summary: 08/10/24 01:54 Discharge Ordered Notes: Location: Home rt Problem: new rt Symptoms: are unchanged rt Condition: Stable rt Diagnosis - Uvulitis rt Followup: rt - With: Private Physician - When: 2 - 3 days - Reason: Discharge Instructions: - Discharge Summary Sheet rt - Uvulitis rt Forms: - Medication Reconciliation Form rt - Antibiotic Education rt - Prescription Opioid Use rt - Patient Portal Instructions rt - Leadership Thank You Letter rt Prescriptions: - Augmentin 875-125 mg Oral Tablet - take 1 tablet ORAL route every 12 hours for 10 days; 20 tablet; Refills: 0, rt Product Selection Permitted - Prednisone 20 mg Oral Tablet - take 1 tablet ORAL route once daily for 5 days; 5 tablet; Refills: 0, Product rt Selection Permitted Signatures: Manuel Lazaro RN RN jb4 Alina Mckeon RN RN vc1 Boaz Maria MD MD rt
[2024-08-10] MEDS ORDERED: predniSONE 20 MG TAB ONE (02:11)
[2024-08-10] MEDS ORDERED: AMOX/K CLAV 875 MG TAB ONE (02:11)
[2024-08-10 02:21] VITALS: BP 170/109; TEMP 98; O2SAT 98
== END 2024-08-10 02:17 | disposition home or self-care (01) ==
LOC: ER 01:18
DX: K12.2 Cellulitis and abscess of mouth (principal); F17.210 Nicotine dependence, cigarettes, uncomplicated
CPT/HCPCS: 99283; J7512

== ENCOUNTER 2024-08-11 04:29 | Emergency (ER) | payer SELFPAY ==
[2024-08-11] MEDS ORDERED: AMPICILLIN/SULBACTAM 3GM/VIAL ONE (04:42)
[2024-08-11] MEDS ORDERED: NA CHLORIDE 0.9% 100 ML ONE (04:42)
[2024-08-11] MEDS ORDERED: dexAMETHasone 10 MG/ML VIAL ONE (04:42)
[2024-08-11 04:56] LABS: Absolute Basophils 0.1 K/uL (0-0.5); Absolute Eosinophils 0.1 K/uL (0-0.5); Absolute Lymphocytes (CBC) 2.2 K/uL (0.7-4.9); Absolute Monocytes 0.3 K/uL (0.1-1.3); Eosinophils % 1.6 % (0-4.4); Hematocrit 40.7 % (39.6-49.0); Hemoglobin 14.1 g/dL (13.6-17.9); Lymphocytes % 32.6 % (15.3-44.8); MCHC 34.5 g/dL (32.0-36.0); MCV 127.3 fL (80-100); MPV 6.6 fL (7.6-11.3); Monocytes % 4.8 % (3.3-12.3); Nucleated Red Blood Cells % 0.1 % (0-0); Platelets 337 thou/uL (152-406); Red Cell Distribution Width 16.3 % (12.1-15.2)
[2024-08-11 05:07] LABS: Albumin 3.1 g/dL (3.4-5.0); Albumin/Globulin Ratio 0.7 (1.1-1.8); Bilirubin Total 0.6 mg/dL (0.2-1.0); Globulin 4.2 g/dL (2.3-3.5); Protein, Total 7.3 g/dL (6.4-8.2)
[2024-08-11 06:03] LABS: Blood Morphology Comment NOTED (NOT SEEN); Macrocytosis 3+; Platelet Estimate ADEQ; Stomatocytes 1+; White Blood Cell Scan OK (OK)
--- NOTE | 2024-08-11 06:10 | ER ---
Nurse's Notes [facility] Name: Basil Ibanez Age: 44 yrs Sex: Male : 1980 Arrival Date: 08/11/2024 Time: 04:29 Bed 7 Private MD: Diagnosis: Uvulitis Presentation: 08/11 04:38 Chief complaint: Patient states: diagnosed with strep throat two days ago and he is now cp4 not able to swallow medications. Coronavirus screen: Client denies travel out of the [place] in the last 14 days. At this time, the client does not indicate any symptoms associated with coronavirus-19. Ebola Screen: Patient negative for fever greater than or equal to 101.5 degrees Fahrenheit, and additional compatible Ebola Virus Disease symptoms Patient denies exposure to infectious person. Patient denies travel to an Ebola-affected area in the 21 days before illness onset. No symptoms or risks identified at this time. Initial Sepsis Screen: Does the patient meet any 2 criteria? No. Patient's initial sepsis screen is negative. Does the patient have a suspected source of infection? No. Patient's initial sepsis screen is negative. Risk Assessment: Do you want to hurt yourself or someone else? Patient reports no desire to harm self or others. Onset of symptoms was August 09, 2024. 04:38 Method Of Arrival: Ambulatory cp4 04:38 Acuity: AC 3 cp4 Triage Assessment: 04:40 General: Appears in no apparent distress. uncomfortable, Behavior is calm, cooperative, cp4 appropriate for age. Pain: Complains of pain in throat. Historical: - Allergies: 04:40 No Known Allergies; cp4 - PMHx: 04:40 diabetes mellitus; Hypertensive disorder; cp4 - Immunization history:: Adult Immunizations up to date. - Infectious Disease History:: Denies. - Social history:: Smoking status: Patient reports the use of cigarette tobacco products, smokes one pack cigarettes per day. - Family history:: not pertinent. Screenin:44 [facility] ED Fall Risk Assessment (Adult) History of falling in the last 3 months, jr13 including since admission No falls in past 3 months (0 pts) Confusion or Disorientation No (0 pts) Intoxicated or Sedated No (0 pts) Impaired Gait No (0 pts) Mobility Assist Device Used No (0 pt) Altered Elimination No (0 pt) Score/Fall Risk Level 0 - 2 = Low Risk Oriented to surroundings, Maintained a safe environment, Educated pt \T\ family on fall prevention, incl call for assistance when getting out of bed. Abuse screen: Denies threats or abuse. Denies injuries from another. Nutritional screening: No deficits noted. Tuberculosis screening: No symptoms or risk factors identified. Assessment: 04:37 General: Appears uncomfortable, Behavior is calm, cooperative, appropriate for age. jr13 Pain: Denies pain. Neuro: Level of Consciousness is awake, alert, obeys commands, Oriented to person, place, time, situation, Appropriate for age. Cardiovascular: Capillary refill < 3 seconds. Respiratory: Airway is patent. GI: No signs and/or symptoms were reported involving the gastrointestinal system. Abdomen is round. : No signs and/or symptoms were reported regarding the genitourinary system. EENT: Throat has enlarged tonsils on right bilaterally Redness and swelling. Musculoskeletal: No signs and/or symptoms reported regarding the musculoskeletal system. 05:40 Reassessment: Patient and/or family updated on plan of care and expected duration. Pain ha1 level reassessed. Patient is alert, oriented x 3, equal unlabored respirations, skin warm/dry/pink. Patient states feeling better. Patient states symptoms have improved. 06:25 Reassessment: Patient and/or family updated on plan of care and expected duration. Pain ha1 level reassessed. Patient is alert, oriented x 3, equal unlabored respirations, skin warm/dry/pink. Patient denies pain at this time. Patient states feeling better. Patient states symptoms have improved. Vital Signs: 04:38 BP 177 / 108; Pulse 113; Resp 18; Temp 98.6; Pulse Ox 97% ; Weight 99.79 kg; Height 5 cp4 ft. 10 in. ; Pain 1/10; 05:27 BP 175 / 111; Pulse 101; Resp 18 S; Pulse Ox 98% on R/A; br2 06:20 BP 167 / 91; Pulse 93; Resp 18 S; Pulse Ox 95% on R/A; ha1 04:38 Body Mass Index 31.57 (99.79 kg, 177.8 cm) cp4 04:38 Pain Scale: Adult cp4 ED Course: 04:30 Patient arrived in ED. gm2 04:31 Boaz Maria MD is Attending Physician. rt 04:40 Triage completed. cp4 04:40 Arm band placed on right wrist. Patient placed in waiting room. cp4 04:44 Patient has correct armband on for positive identification. Bed in low position. Call jr13 light in reach. Side rails up X 1. Provided Education on: Plan of care. 04:44 Inserted saline lock: 20 gauge in right antecubital area, using aseptic technique. jr13 Blood collected. Flushed with 10 mL NS. 04:48 CMP Sent. jr13 04:48 CBC with Diff Sent. jr13 05:29 CT Soft Tissue Neck W/contr In Process Unspecified. EDMS 06:26 No provider procedures requiring assistance completed. IV discontinued, intact, ha1 bleeding controlled, No redness/swelling at site. Pressure dressing applied. Administered Medications: 04:49 Drug: Decadron - Dexamethasone IVP 10 mg IVP once Route: IVP; Site: right antecubital; br2 05:30 Follow up: Response: No adverse reaction br2 04:49 Drug: Ampicillin-Sulbactam Sodium IVPB 3 grams IVPB once over 30 mins; (mix in 100 mL br2 NS) Route: IVPB; Infused Over: 30 mins; Site: right antecubital; 05:30 Follow up: Response: No adverse reaction; IV Status: Completed infusion; IV Intake: br2 100ml Medication: 04:47 VIS not applicable for this client. jr13 Intake: 05:30 IV: 100ml; Total: 100ml. br2 Outcome: 06:10 Discharge ordered by MD. rt 06:26 Discharged to home ambulatory, ha1 06:26 Condition: stable 06:26 Discharge instructions given to patient, Instructed on discharge instructions, follow up and referral plans. medication usage, Demonstrated understanding of instructions, follow-up care, medications, Prescriptions given X 2, 06:27 Patient left the ED. ha1 Signatures: Dispatcher [employer] EDNJ Shira Sprague RN RN ha1 Boaz Maria MD MD rt Amy Scales cp4 Roxann Luo gm2 Patience Morin RN RN br2 Zaire Zuñiga RN RN jr13 Corrections: (The following items were deleted from the chart) 06:26 06:20 BP 167 / 100; Pulse 93bpm; Resp 18bpm; Spontaneous; Pulse Ox 95% RA; br2 ha1
--- NOTE | 2024-08-11 06:11 | EDPHYS ---
Physician Documentation [facility] Name: Basil Ibanez Age: 44 yrs Sex: Male : 1980 Arrival Date: 08/11/2024 Time: 04:29 Bed 7 Private MD: ED Physician Boaz Maria HPI: 08/11 04:46 This 44 yrs old Male presents to ER via Ambulatory with complaints of Difficulty rt Swallowing. 04:46 Patient presents to the ED with sore throat, difficulty swallowing. The patient was rt seen in the ED yesterday, diagnosed with uvulitis, started on steroids, antibiotics, states that yesterday, he was feeling better, woke up this morning states that his throat is feeling worse, has difficulty in swallowing the pills. Denies other acute complaints at this time, symptoms are moderate in severity, no other aggravating alleviating factors.. Historical: - Allergies: 04:40 No Known Allergies; cp4 - PMHx: 04:40 diabetes mellitus; Hypertensive disorder; cp4 - Immunization history:: Adult Immunizations up to date. - Infectious Disease History:: Denies. - Social history:: Smoking status: Patient reports the use of cigarette tobacco products, smokes one pack cigarettes per day. - Family history:: not pertinent. ROS: 04:46 Constitutional: Negative for fever, chills, and weight loss, Cardiovascular: Negative rt for chest pain, palpitations, and edema, Respiratory: Negative for shortness of breath, cough, wheezing, and pleuritic chest pain, Abdomen/GI: Negative for abdominal pain, nausea, vomiting, diarrhea, and constipation, Skin: Negative for injury, rash, and discoloration, Neuro: Negative for headache, weakness, numbness, tingling, and seizure, 04:46 ENT: Positive for difficulty swallowing, sore throat, Exam: 04:46 Constitutional: This is a well developed, well nourished patient who is awake, alert, rt and in no acute distress. Head/Face: Normocephalic, atraumatic. Chest/axilla: Normal chest wall appearance and motion. Nontender with no deformity. No lesions are appreciated. Cardiovascular: Regular rate and rhythm with a normal S1 and S2. No gallops, murmurs, or rubs. Normal PMI, no JVD. No pulse deficits. Respiratory: Lungs have equal breath sounds bilaterally, clear to auscultation and percussion. No rales, rhonchi or wheezes noted. No increased work of breathing, no retractions or nasal flaring. Abdomen/GI: Soft, non-tender, with normal bowel sounds. No distension or tympany. No guarding or rebound. No evidence of tenderness throughout. Skin: Warm, dry with normal turgor. Normal color with no rashes, no lesions, and no evidence of cellulitis. MS/ Extremity: Pulses equal, no cyanosis. Neurovascular intact. Full, normal range of motion. 04:46 ENT: Edema noted to the uvula, worse compared to yesterday, uvula still midline, posterior pharyngeal erythema, no exudates identified. Vital Signs: 04:38 BP 177 / 108; Pulse 113; Resp 18; Temp 98.6; Pulse Ox 97% ; Weight 99.79 kg; Height 5 cp4 ft. 10 in. ; Pain 1/10; 05:27 BP 175 / 111; Pulse 101; Resp 18 S; Pulse Ox 98% on R/A; br2 06:20 BP 167 / 91; Pulse 93; Resp 18 S; Pulse Ox 95% on R/A; ha1 04:38 Body Mass Index 31.57 (99.79 kg, 177.8 cm) cp4 04:38 Pain Scale: Adult cp4 MDM: 04:33 Medical Screening Exam initiated rt 06:14 Differential diagnosis: Uvulitis, pharyngitis, abscess. Data reviewed: vital signs, rt nurses notes, lab test result(s), radiologic studies. Consideration of Admission/Observation Escalation of care including admission/observation considered. Patient is able to tolerate liquids but with pain, no indications for admission to the hospital, he was informed of findings of prominent lymph nodes at the paratracheal regions, instructed to follow-up with primary care to get repeat imaging to ensure stability. Will change patient to liquid medicines, stable for outpatient care, return precautions discussed.. I considered the following discharge prescriptions or medication management in the emergency department Medications were administered in the Emergency Department. See MAR. Independent interpretation of the following test(s) in the Emergency Department CT Scan: My interpretation is No abscess seen on interpretation of CT scan images. Care significantly affected by the following chronic conditions: Diabetes, Hypertension. Counseling: I had a detailed discussion with the patient and/or guardian regarding the historical points, exam findings, and any diagnostic results supporting the discharge/admit diagnosis, lab results, radiology results, the need for outpatient follow up, to return to the emergency department if symptoms worsen or persist or if there are any questions or concerns that arise at home. Response to treatment: the patient's symptoms have mildly improved after treatment. 08/11 04:38 Order name: CBC with Diff; Complete Time: 06:04 rt 08/11 04:38 Order name: CMP; Complete Time: 05:31 rt 08/11 05:02 Order name: CBC Smear Scan; Complete Time: 06:04 EDMS 08/11 04:38 Order name: CT Soft Tissue Neck W/contr rt Administered Medications: 04:49 Drug: Decadron - Dexamethasone IVP 10 mg IVP once Route: IVP; Site: right antecubital; br2 05:30 Follow up: Response: No adverse reaction br2 04:49 Drug: Ampicillin-Sulbactam Sodium IVPB 3 grams IVPB once over 30 mins; (mix in 100 mL br2 NS) Route: IVPB; Infused Over: 30 mins; Site: right antecubital; 05:30 Follow up: Response: No adverse reaction; IV Status: Completed infusion; IV Intake: br2 100ml Disposition Summary: 08/11/24 06:10 Discharge Ordered Notes: Location: Home rt Problem: an ongoing problem rt Symptoms: have improved rt Condition: Stable rt Diagnosis - Uvulitis rt Followup: rt - With: Private Physician - When: 2 - 3 days - Reason: Discharge Instructions: - Discharge Summary Sheet rt - Uvulitis rt Forms: - Medication Reconciliation Form rt - Antibiotic Education rt - Prescription Opioid Use rt - Patient Portal Instructions rt - Leadership Thank You Letter rt Prescriptions: - prednisolone 15 mg/5 mL Oral solution - take 5 milliliter ORAL route 2 times per day for 5 days with food; 30 rt milliliter; Refills: 0, Product Selection Permitted - Augmentin ES-600 600-42.9 mg/5 mL Oral Suspension for Reconstitution - take 7 milliliter ORAL route every 12 hours for 10 days Max = 875mg/dose; 150 rt milliliter; Refills: 0, Product Selection Permitted Signatures: Dispatcher [employer] Boaz Awan MD MD rt Amy Scales cp4 [place], Patience, RN RN br2
--- NOTE | 2024-08-11 06:19 | RAD REPORT ---
PROCEDURE: CT Neck With Intravenous Contrast CLINICAL INDICATION: The patient is 44 years old and is Male; Sore throat, difficulty swallowing. TECHNIQUE: Axial computed tomography images of the neck with intravenous contrast. Sagittal and coronal reform atted images were created and reviewed. This CT exam was performed using one or more of the following dose reduction techniques: automated exposure control, adjustment of the mA and/or kV acc ording to patient size, and/or use of iterative reconstruction technique. COMPARISON: None. FINDINGS: OROPHARYNX: Unremarkable No significant tonsillar enlargement. No peritonsillar abscess. HYPOPHARYNX: Unremarkable LARYNX: Unremarkable Normal epiglottis. TRACHEA: Unremarkable RETROPHARYNGEAL SPACE: Unremarkable SUBMANDIBULAR/PAROTID GLANDS: Unremarkable Glands are normal in size. THYROID: Unremarkable No enlarged or calcified nodules. BONES/JOINTS: No acute fracture. SOFT TISSUES: Unremarkable VASCULATURE: No acute findings. LYMPH NODES: Several prominent right paratracheal lymph nodes at the level of the thoracic inlet, m easuring up to 0.8 cm in short axis diameter. No suspicious cervical lymphadenopathy by morphology or size criteria. SINUSES: Near complete opacification of the right maxillary sinus secondary to large retention cyst . Remainder of the bilateral paranasal sinuses are well-aerated and clear. LUNG APICES: Unremarkable as visualized. IMPRESSION: 1. No acute abnormality of the neck. 2. Several prominent right paratracheal lymph nodes at the level of the thoracic inlet, measuring u p to 0.8 cm in short axis diameter. Nonspecific. Recommend comparison with prior CT chest imaging to evaluate for acuity/stability. 3. Near complete opacification of the right maxillary sinus secondary to large retention cyst. Lupe valeria of the bilateral paranasal sinuses are well-aerated and clear. Electronically signed by: Raheem Edmond MD 08/11/2024 05:55 AM CDT Due to temporary technical issues with the PACS/[employer] reporting system, reports are being cr d by the in-house radiologist without review as a courtesy to ensure prompt reporting the interpreting radiologist is fully responsible for the content of the report. Transcribed Date/Time: 08/11/2024 6:19 AM
[2024-08-11 06:34] VITALS: TEMP 98.6
[2024-08-11 06:36] VITALS: BP 167/91; O2SAT 95
== END 2024-08-11 06:27 | disposition home or self-care (01) ==
LOC: ER 04:29
DX: K12.2 Cellulitis and abscess of mouth (principal)
CPT/HCPCS: 36415; 70491; 80053; 85025; 96365; 96375; 99284; J0295; J1100; Q9967

== ENCOUNTER 2024-08-11 18:46 | Emergency (ER) | payer SELFPAY ==
[2024-08-11] MEDS ORDERED: NA CHLORIDE 0.9% 1,000 ML ONE (20:26)
[2024-08-11 20:41] LABS: Absolute Basophils 0.1 K/uL (0-0.5); Absolute Lymphocytes (CBC) 0.6 K/uL (0.7-4.9); Absolute Monocytes 0.2 K/uL (0.1-1.3); Absolute Neutrophil 6.7 K/uL (1.8-8.0); Basophils % 0.7 % (0-1.3); Hematocrit 41.3 % (39.6-49.0); Hemoglobin 14.3 g/dL (13.6-17.9); Lymphocytes % 8.5 % (15.3-44.8); MCH 43.9 pg (27.0-35.0); MCHC 34.8 g/dL (32.0-36.0); MCV 126.3 fL (80-100); MPV 6.3 fL (7.6-11.3); Monocytes % 2.8 % (3.3-12.3); Nucleated Red Blood Cells % 0.2 % (0-0); Platelets 334 thou/uL (152-406); RBC Red Blood Cell Count 3.27 M/uL (4.33-5.43); Red Cell Distribution Width 16.2 % (12.1-15.2)
[2024-08-11 20:43] LABS: Platelet Estimate ADEQ; White Blood Cell Scan OK (OK)
[2024-08-11 20:44] LABS: Blood Morphology Comment NOTED (NOT SEEN); Macrocytosis 3+
[2024-08-11 20:59] LABS: Monoscreen NEG (NEG)
--- NOTE | 2024-08-11 21:00 | RAD REPORT ---
EXAM: Chest Single View HISTORY: 44 years Male leg weakness COMPARISON: 02/13/2024 FINDINGS: LUNGS/PLEURA: The lungs are clear. No pleural effusions or pneumothorax. No pulmonary edema. CARDIAC/MEDIASTINUM: The cardiac silhouette is within normal limits. UPPER ABDOMEN: No significant abnormality. BONES: No acute abnormality. LINES/TUBES/OTHER: N/A IMPRESSION: No evidence of acute cardiopulmonary disease. No significant change from prior.
[2024-08-11 21:01] LABS: Albumin 3.6 g/dL (3.4-5.0); Albumin/Globulin Ratio 0.8 (1.1-1.8); Anion Gap 13.1 mEq/L (5.0-15.0); Bilirubin Direct 0.3 mg/dL (0-0.2); Bilirubin Indirect, Calculated 0.3 mg/dL (0.2-0.8); Bilirubin Total 0.6 mg/dL (0.2-1.0); Globulin 4.7 g/dL (2.3-3.5); Magnesium 1.7 mg/dL (1.6-2.4); Potassium 3.1 mEq/L (3.5-5.1); Protein, Total 8.3 g/dL (6.4-8.2); Troponin High Sensitivity 9.2 pg/mL (<58.9)
--- NOTE | 2024-08-11 21:45 | RAD REPORT ---
EXAMINATION: Head Brain Wo Cont CLINICAL INDICATION: Male, 44 years old.leg weakness TECHNIQUE: Axial CT images from the skull base to the vertex without intravenous contrast. Coronal an d sagittal reformatted images were created from the data set. One or more of the following dose reduction techniques were used: Automated exposure control, adjustment of the mA and/or kV according to patient size, and/or iterative reconstruction. Unless otherwise specified, incidental findings do not require dedicated imaging follow-up. [id number]. COMPARISON: No prior exam. FINDINGS: INTRACRANIAL: No acute intracranial hemorrhage. No hydrocephalus. No mass effect or midline shift. No significant white matter disease. VASCULATURE: No visualized abnormalities in the arteries or dural venous sinuses. SCALP/SKULL: No calvarial fracture identified. No acute soft tissue abnormality. SINUSES: Near complete opacification of the right maxillary sinus. No significant mastoid fluid. IMPRESSION: No acute intracranial abnormality.
--- NOTE | 2024-08-11 21:52 | RAD REPORT ---
EXAMINATION: Abdomen Pelvis Wo Contrast CLINICAL INDICATION: Male, 44 years old.leg weakness TECHNIQUE: CT abdomen and pelvis was performed, without IV contrast, as per department protocol. Axia l, sagittal and coronal reconstructions were obtained. One or more of the following dose reduction techniques were used: Automated exposure control, adjustment of the mA and/or kV according to the pat ient size, and/or iterative reconstruction. Unless otherwise specified, incidental findings do not require dedicated imaging follow-up. [id number]. IV CONTRAST: Not administered. COMPARISON: 02/13/2024 FINDINGS: The lack of intravenous contrast limits the sensitivity of this exam for evaluation of solid visceral organs, vascular structures, and retroperitoneum. LOWER CHEST: No acute process identified.No significant pericardial effusion. UPPER GI: No significant abnormality. LIVER: Hepatomegaly with steatosis. GALLBLADDER/BILE DUCTS: Unchanged extrahepatic biliary duct dilatation.? PANCREAS: No mass, ductal dilation, or hanh-pancreatic fluid. SPLEEN: Unremarkable. ADRENALS: Unchanged left adrenal nodule measuring 19 mm which is presumably benign. KIDNEYS AND URETERS: No hydronephrosis.Limited evaluation for renal lesions in the absence of IV cont rast. ABDOMINAL AORTA AND OTHER VESSELS: Mild atherosclerotic changes. PERITONEUM: No abnormal free fluid. No free air. LYMPH NODES: No pathologic lymphadenopathy. ABDOMINAL WALL: Unremarkable SMALL BOWEL/COLON: Small bowel has normal course and caliber. No colonic wall thickening or pericolon ic inflammatory changes.Normal appendix. URINARY BLADDER: Underdistended but grossly unremarkable. REPRODUCTIVE ORGANS: No pathologic process. MUSCULOSKELETAL: No acute or suspicious osseous abnormality. ADDITIONAL FINDINGS: None. IMPRESSION: No acute findings within the abdomen or pelvis.
[2024-08-11] MEDS ORDERED: POTASSIUM 25 MEQ EFFERV TAB ONE (21:59)
[2024-08-11 23:38] LABS: Barbiturates NEGATIVE (NEGATIVE); Benzodiazepines NEGATIVE (NEGATIVE); Cocaine NEGATIVE (NEGATIVE); METHAMPHETAM NEGATIVE (NEGATIVE); Methadone NEGATIVE (NEGATIVE); Opiates NEGATIVE (NEGATIVE); Phencyclidine NEGATIVE (NEGATIVE); THC Cannibis NEGATIVE (NEGATIVE)
[2024-08-11 23:42] LABS: Specific Gravity > 1.030 (1.005-1.030); Sqamous Epithelial <5 /HPF (None Seen); Urine Bacteria None Seen /HPF (<20); Urine Bilirubin NEGATIVE (Negative); Urine Blood Negative (Negative); Urine Clarity Clear (Clear); Urine Color Yellow (Yellow); Urine Culture Reflex Order NOT NEEDED; Urine Glucose 4+ (Over) (Negative); Urine Ketones 1+ (Negative); Urine Micro Reflex YN NO BILL MICROSCOPIC; Urine Mucus Slight /HPF (None Seen); Urine Nitrite NEGATIVE (Negative); Urine Protein 1+ (Negative); Urine Urobilinogen Normal (Normal); Urine WBC <5 /HPF (<5); Urine pH 6.5 (5.0-7.0)
--- NOTE | 2024-08-11 23:45 | ER ---
Nurse's Notes [facility] Name: Basil Ibanez Age: 44 yrs Sex: Male : 1980 Arrival Date: 08/11/2024 Time: 18:46 Bed 17 Private MD: Diagnosis: Weakness;Other specified diabetes mellitus with hyperglycemia;Hypokalemia;Adverse effect of other drugs, medicaments and biological substances Presentation: 08/11 19:51 Chief complaint: Patient states: he was evaluated at this facility earlier this ap3 morning, and received "two shots in my IV, and now i feel like i can't walk." patient states they feel sore "like after you work out". Coronavirus screen: At this time, the client does not indicate any symptoms associated with coronavirus-19. Ebola Screen: No symptoms or risks identified at this time. Initial Sepsis Screen: Does the patient meet any 2 criteria? HR > 90 bpm. Does the patient have a suspected source of infection? No. Patient's initial sepsis screen is negative. Risk Assessment: Do you want to hurt yourself or someone else? Patient reports no desire to harm self or others. Onset of symptoms was August 11, 2024. 19:51 Method Of Arrival: Wheelchair ap3 19:51 Acuity: AC 2 ap3 Triage Assessment: 19:54 General: Appears in no apparent distress. Behavior is calm, cooperative, appropriate ap3 for age. Pain: Denies pain. EENT: Reports recent strep throat dx. Neuro: Level of Consciousness is awake, alert, obeys commands, Oriented to person, place, time, situation, Appropriate for age Gait is reports inability to ambulate at this time. Cardiovascular: Patient's skin is warm and dry. Respiratory: Airway is patent Respiratory effort is even, unlabored, Respiratory pattern is regular, symmetrical. Historical: - Allergies: 19:53 No Known Allergies; ap3 - PMHx: 19:53 diabetes mellitus; Hypertensive disorder; ap3 - Immunization history:: Client reports having NOT received the Covid vaccine. - Infectious Disease History:: Denies. - Social history:: Smoking status: Patient reports the use of cigarette tobacco products, smokes one pack cigarettes per day. Screenin:54 Abuse screen: Denies threats or abuse. Nutritional screening: No deficits noted. ap3 Tuberculosis screening: No symptoms or risk factors identified. 20:06 [facility] ED Fall Risk Assessment (Adult) History of falling in the last 3 months, kj2 including since admission No falls in past 3 months (0 pts) Confusion or Disorientation No (0 pts) Intoxicated or Sedated No (0 pts) Impaired Gait Yes (1 pt) Mobility Assist Device Used Yes (1 pt) Altered Elimination No (0 pt) Score/Fall Risk Level 0 - 2 = Low Risk Maintained a safe environment, Hourly rounding (assess needs \\T\\ fall precautionary measures) done. Assessment: 20:01 General: Appears in no apparent distress. Behavior is cooperative. Pain: Complains of kj2 pain in throat Pain currently is 4 out of 10 on a pain scale. Neuro: Level of Consciousness is awake, alert, obeys commands, Oriented to person, place, time, situation. Cardiovascular: Patient's skin is warm and dry. Respiratory: Airway is patent Respiratory effort is unlabored. GI: No signs and/or symptoms were reported involving the gastrointestinal system. : No signs and/or symptoms were reported regarding the genitourinary system. 20:42 Reassessment: Patient appears in no apparent distress at this time. Patient and/or kj2 family updated on plan of care and expected duration. Pain level reassessed. Patient is alert, oriented x 3, equal unlabored respirations, skin warm/dry/pink. 21:45 Reassessment: Patient appears in no apparent distress at this time. Patient and/or kj2 family updated on plan of care and expected duration. Pain level reassessed. Patient is alert, oriented x 3, equal unlabored respirations, skin warm/dry/pink. 23:11 Reassessment: Patient appears in no apparent distress at this time. Patient and/or kj2 family updated on plan of care and expected duration. Pain level reassessed. Patient is alert, oriented x 3, equal unlabored respirations, skin warm/dry/pink. 23:58 Reassessment: Patient appears in no apparent distress at this time. Patient and/or kj2 family updated on plan of care and expected duration. Pain level reassessed. Patient is alert, oriented x 3, equal unlabored respirations, skin warm/dry/pink. 23:59 Respiratory: Breath sounds are clear bilaterally. kj2 23:59 EENT: Throat is clear. kj2 Vital Signs: 19:51 BP 136 / 89; Pulse 117; Resp 18; Temp 98.6(O); Pulse Ox 97% on R/A; Weight 95.25 kg; ap3 Height 5 ft. 8 in. ; Pain 0/10; 20:42 BP 135 / 87; Pulse 113; Resp 20; Pulse Ox 100% on R/A; kj2 21:45 BP 141 / 89; Pulse 111; Resp 18; Pulse Ox 98% on R/A; kj2 23:11 BP 155 / 93; Pulse 97; Resp 20; Pulse Ox 100% on R/A; kj2 23:58 BP 148 / 88; Pulse 96; Resp 18; Temp 98; Pulse Ox 100% on R/A; kj2 19:51 Body Mass Index 31.93 (95.25 kg, 172.72 cm) ap3 19:51 Pain Scale: Adult ap3 ED Course: 18:47 Patient arrived in ED. mr 19:25 Bobo Woodall PA is PHCP. cp 19:25 Nader Singh MD is Attending Physician. cp 19:53 Triage completed. ap3 19:54 Arm band placed on left wrist. ap3 19:57 Bailee Santiago, MARVIN is Primary Nurse. kj2 20:08 Patient has correct armband on for positive identification. Bed in low position. Call kj2 light in reach. Adult w/ patient. Provided Education on: call light. 20:40 Inserted saline lock: 20 gauge in right antecubital area, using aseptic technique. oh1 Blood collected. Flushed with 10 mL NS. 20:41 EKG done, by technical intern. reviewed by Bobo DONNELLY. oh1 20:41 Initial lab(s) drawn, by ny, sent to lab. oh1 20:42 Basic Metabolic Panel Sent. oh1 20:42 CBC with Diff Sent. oh1 20:42 LFT's Sent. oh1 20:42 Magnesium Sent. oh1 20:42 Troponin HS Sent. oh1 20:47 XRAY Chest (1 view) In Process Unspecified. EDMS 21:33 CT Head Brain wo Cont In Process Unspecified. EDMS 21:33 CT Abd/Pelvis - Without Contrast In Process Unspecified. EDMS 23:11 Urinalysis W/Microscopic Sent. kj2 23:21 Hardik Yee DO is Attending Physician. cp 23:58 No provider procedures requiring assistance completed. IV discontinued, intact, kj2 bleeding controlled, No redness/swelling at site. Pressure dressing applied. Administered Medications: 20:36 Drug: NS 0.9% IV 1000 ml IV at 1 bolus Per protocol; to be given as a bolus over 60 kj2 minutes Route: IV; Rate: 1 bolus; Site: left antecubital; 23:11 Follow up: IV Status: Completed infusion; IV Intake: 1000ml kj2 22:10 Drug: Potassium PO Effervescent Tablet 50 mEq PO once; dissolve in 4 ounces of water or kj2 juice Route: PO; 23:25 Follow up: Response: No adverse reaction kj2 Medication: 20:07 VIS not applicable for this client. kj2 Intake: 23:11 IV: 1000ml; Total: 1000ml. kj2 Outcome: 23:44 Discharge ordered by MD. cp 23:59 Discharged to home ambulatory, with family, kj2 23:59 Condition: stable 23:59 Discharge instructions given to patient, family, Instructed on discharge instructions, follow up and referral plans. Demonstrated understanding of instructions, follow-up care, medications, Prescriptions given X 1, 04 00:01 Patient left the ED. kj2 Signatures: Dispatcher [employer] EDMS MoellerRocio, Reg Reg mr Bobo Woodall, CONY PA cp Radha Shah RN RN ap3 Bailee Santiago RN RN kj2 Allison Hernandez oh1 Corrections: (The following items were deleted from the chart) 08/11 23:13 23:12 BP 141 / 89; Pulse 111bpm; Resp 18bpm; Pulse Ox 98% RA; kj2 kj2
--- NOTE | 2024-08-11 23:45 | EDPHYS ---
Physician Documentation [facility] Name: Basil Ibanez Age: 44 yrs Sex: Male : 1980 Arrival Date: 08/11/2024 Time: 18:46 Bed 17 Private MD: ED Physician Hardik Yee HPI: 08/11 20:20 This 44 yrs old Male presents to ER via Wheelchair with complaints of Weakness of Legs. cp 20:20 The patient's problem is reported as weakness, in the right lower extremity, in the cp left lower extremity. Onset: The symptoms/episode began/occurred today. Duration: The episode is continuous. Associated signs and symptoms: Pertinent negatives: abdominal pain, chest pain, fever, low back pain. 20:20 Patient's baseline: Neuro: alert and fully oriented, Motor: no deficits, Ambulation: cp walks without assistance, Speech: normal. 20:20 Patient reports increasing weakness of legs after receiving steroid shot earlier today cp while here in ED. Historical: - Allergies: 19:53 No Known Allergies; ap3 - PMHx: 19:53 diabetes mellitus; Hypertensive disorder; ap3 - Immunization history:: Client reports having NOT received the Covid vaccine. - Infectious Disease History:: Denies. - Social history:: Smoking status: Patient reports the use of cigarette tobacco products, smokes one pack cigarettes per day. ROS: 20:25 Constitutional: Negative for body aches, chills, fever, poor PO intake, cp 20:25 Eyes: Negative for injury, pain, redness, and discharge, cp 20:25 ENT: Negative for drainage from ear(s), ear pain, sore throat, difficulty swallowing, difficulty handling secretions, 20:25 Cardiovascular: Negative for chest pain, edema, palpitations, 20:25 Respiratory: Negative for cough, shortness of breath, wheezing, 20:25 Abdomen/GI: Negative for abdominal pain, nausea, vomiting, and diarrhea, constipation, bowel incontinence, 20:25 Back: Negative for pain at rest, pain with movement, 20:25 : Negative for urinary symptoms, difficulty urinating, bladder incontinence, 20:25 Neuro: Positive for weakness, of the right leg and left leg, Negative for altered mental status, dizziness, headache, numbness, 20:25 All other systems are negative, Exam: 20:30 Constitutional: The patient appears in no acute distress, alert, awake, cp non-diaphoretic, non-toxic, well developed, well nourished, 20:30 Head/Face: Normocephalic, atraumatic. cp 20:30 Eyes: Periorbital structures: appear normal, Conjunctiva: normal, no exudate, no injection, Sclera: no appreciated abnormality, Lids and lashes: appear normal, bilaterally, 20:30 ENT: External ear(s): are unremarkable, Nose: is normal, Mouth: Lips: moist, Oral mucosa: moist, Posterior pharynx: Airway: no evidence of obstruction, patent, erythema, that is moderate, 20:30 Neck: ROM/movement: is normal, is supple, without pain, no range of motions limitations, 20:30 Chest/axilla: Inspection: normal, 20:30 Cardiovascular: Rate: tachycardic, Rhythm: regular, Edema: is not appreciated, JVD: is not appreciated, 20:30 Respiratory: the patient does not display signs of respiratory distress, Respirations: normal, no use of accessory muscles, no retractions, labored breathing, is not present, Breath sounds: are clear throughout, no decreased breath sounds, no stridor, no wheezing, 20:30 Abdomen/GI: Inspection: abdomen appears normal, Palpation: abdomen is soft and non-tender, in all quadrants, 20:30 Back: pain, is absent, ROM is normal, 20:30 Musculoskeletal/extremity: Extremities: all appear grossly normal, with no appreciated pain with palpation, 20:30 Neuro: Orientation: to person, place \T\ time. Mentation: is normal, Motor: symmetrical weakness of legs, Sensation: is normal, Gait: is unsteady, 20:40 ECG was reviewed by the Attending Physician. cp Vital Signs: 19:51 BP 136 / 89; Pulse 117; Resp 18; Temp 98.6(O); Pulse Ox 97% on R/A; Weight 95.25 kg; ap3 Height 5 ft. 8 in. ; Pain 0/10; 20:42 BP 135 / 87; Pulse 113; Resp 20; Pulse Ox 100% on R/A; kj2 21:45 BP 141 / 89; Pulse 111; Resp 18; Pulse Ox 98% on R/A; kj2 23:11 BP 155 / 93; Pulse 97; Resp 20; Pulse Ox 100% on R/A; kj2 23:58 BP 148 / 88; Pulse 96; Resp 18; Temp 98; Pulse Ox 100% on R/A; kj2 19:51 Body Mass Index 31.93 (95.25 kg, 172.72 cm) ap3 19:51 Pain Scale: Adult ap3 MDM: 19:56 Medical Screening Exam initiated cp 23:44 Data reviewed: vital signs, nurses notes, lab test result(s), EKG, radiologic studies, cp CT scan, plain films, and as a result, I will discharge patient. 23:44 Differential diagnosis: CVA, TIA, metabolic disorder, drug effects, Guillain Burre. I cp considered the following discharge prescriptions or medication management in the emergency department Medications were administered in the Emergency Department. See MAR. Independent interpretation of the following test(s) in the Emergency Department EKG: See my EKG interpretation above. Care significantly affected by the following chronic conditions: Diabetes, Hypertension. Counseling: I had a detailed discussion with the patient and/or guardian regarding the historical points, exam findings, and any diagnostic results supporting the discharge/admit diagnosis, lab results, radiology results, to return to the emergency department if symptoms worsen or persist or if there are any questions or concerns that arise at home. Response to treatment: the patient's symptoms have markedly improved after treatment, VSS. Patient reports weakness of legs improved. Patient observed ambulating w/o assistance, and as a result, I will discharge patient. 08/11 20:18 Order name: Basic Metabolic Panel; Complete Time: 21:50 cp 08/11 21:50 Interpretation: Normal except: K 3.1; GLUC 297; GFR 76; CA 8.7. cp 08/11 20:18 Order name: CBC with Diff; Complete Time: 21:01 cp 08/11 21:01 Interpretation: Normal except: RBC 3.27; MCV 126.3; MCH 43.9; RDW 16.2; MPV 6.3; ARCHANA% cp 88.0; LYM% 8.5; MN% 2.8; LYMA 0.6. 08/11 20:18 Order name: LFT's; Complete Time: 21:50 cp 08/11 21:50 Interpretation: Normal except: AST 50; ALK 141; BILID 0.3; TP 8.3; GLOB 4.7; A/G 0.8. cp 04/ 20:18 Order name: Magnesium; Complete Time: 21:50 cp 08/11 20:18 Order name: Troponin HS; Complete Time: 21:50 cp 08/11 20:18 Order name: CK; Complete Time: 21:50 cp 08/11 21:51 Interpretation: Reviewed. cp 08/11 20:18 Order name: [place] Screen Profile; Complete Time: 21:01 cp 08/11 20:44 Order name: CBC Smear Scan; Complete Time: 21:01 EDMS 08/11 21:52 Order name: Urinalysis W/Microscopic cp 08/11 21:52 Order name: UDS cp 08/11 20:18 Order name: XRAY Chest (1 view); Complete Time: 21:01 cp 08/11 20:18 Order name: CT Head Brain wo Cont; Complete Time: 21:50 cp 08/11 20:24 Order name: CT Abd/Pelvis - Without Contrast; Complete Time: 21:55 cp 08/11 21:55 Interpretation: Report reviewed. cp 08/11 20:18 Order name: Cardiac monitoring; Complete Time: 20:36 cp 08/11 20:18 Order name: EKG - Nurse/Tech; Complete Time: 20:36 cp 08/11 20:18 Order name: IV Saline Lock; Complete Time: 20:41 cp 08/11 20:18 Order name: Labs collected and sent; Complete Time: 20:41 cp 08/11 20:18 Order name: O2 Per Protocol; Complete Time: 23:11 cp 08/11 20:18 Order name: O2 Sat Monitoring cp EC:40 Rate is 109 beats/min. Rhythm is regular. UT interval is normal. QRS interval is cp normal. QT interval is normal. Interpreted by me. Reviewed by me. Administered Medications: 20:36 Drug: NS 0.9% IV 1000 ml IV at 1 bolus Per protocol; to be given as a bolus over 60 kj2 minutes Route: IV; Rate: 1 bolus; Site: left antecubital; 23:11 Follow up: IV Status: Completed infusion; IV Intake: 1000ml kj2 22:10 Drug: Potassium PO Effervescent Tablet 50 mEq PO once; dissolve in 4 ounces of water or kj2 juice Route: PO; 23:25 Follow up: Response: No adverse reaction kj2 Disposition: 08/12 00:42 I was immediately available on-site in the Emergency Department for consultation in the ms3 care of the patient. 23:52 Chart complete. cp Disposition Summary: 08/11/24 23:44 Discharge Ordered Notes: Location: Home cp Problem: new cp Symptoms: have improved cp Condition: Stable cp Diagnosis - Weakness cp - Other specified diabetes mellitus with hyperglycemia cp - Hypokalemia cp - Adverse effect of other drugs, medicaments and biological substances cp Followup: cp - With: Private Physician - When: 2 - 3 days - Reason: Recheck today's complaints Discharge Instructions: - Discharge Summary Sheet cp - Potassium Content of Foods cp - Hyperglycemia cp - Weakness cp - Hypokalemia cp Forms: - Medication Reconciliation Form cp - Antibiotic Education cp - Prescription Opioid Use cp - Patient Portal Instructions cp - Leadership Thank You Letter cp Prescriptions: - Potassium Chloride 20 meq Oral Packet - take 1 packet ORAL route once daily 1 packet in 6 (six) ounces of water or cp juice; Take after meal; 5 packet; Refills: 0, Product Selection Permitted Signatures: Dispatcher [employer] EDMS Bobo Woodall PA PA cp Radha Shah, RN RN ap3 Hardik Yee DO DO ms3 Bailee Santiago RN RN kj2 Corrections: (The following items were deleted from the chart) 08/11 19:11 19:11 COVID-19 Ag + Flu A+B Ag+I.LAB.BRZ ordered. EDMS EDMS 19:11 19:11 Group A Streptococcus Rapid Sc+I.LAB.BRZ ordered. EDMS EDMS 20:19 20:19 Chest Single View+RAD.RAD.BRZ ordered. EDMS EDMS 20:19 20:19 Head Brain Wo Cont+CT.RAD.BRZ ordered. EDMS EDMS 20:19 20:19 Abdomen Pelvis W Con+CT.RAD.BRZ ordered. EDMS EDMS 21:53 21:53 Urinalysis W/Microscopic+U.LAB.BRZ ordered. EDMS EDMS 21:53 21:53 URINE DRUG SCREEN+UC.LAB.BRZ ordered. EDMS EDMS 08/12 23:34 08/11 20:20 This 44 yrs old Male presents to ER via Wheelchair with complaints of Sore cp Throat. cp
[2024-08-12 00:31] VITALS: O2SAT 100
[2024-08-12 00:32] VITALS: BP 148/88; TEMP 98
--- NOTE | 2024-08-14 11:34 | EKG ---
Test Date: 2024-08-11 Test Time: 20:36:23 Sanitation Manager: KVNG MEASUREMENT RESULTS: Intervals: Rate: 109 WY: 154 QRSD: 80 QT: 378 QTc: 509 [place]: P: 74 WY: 154 QRS: 55 T: 65 INTERPRETIVE STATEMENTS: Sinus tachycardia Septal infarct, age undetermined Abnormal ECG Compared to ECG 02/13/2024 06:58:41 Myocardial infarct finding now present Atrial abnormality no longer present Electronically Signed On 08-14-24 11:29:49 CDT by Chang Craft
== END 2024-08-12 00:01 | disposition home or self-care (01) ==
LOC: ER 18:46
DX: E13.65 Other specified diabetes mellitus with hyperglycemia (principal); E87.6 Hypokalemia; T50.995A Adverse effect of other drugs, medicaments and biological substances, initial encounter
CPT/HCPCS: 36415; 70450; 71045; 74176; 80048; 80076; 80307; 81001; 82550; 83735; 84484; 85025; 86308; 93005; 96360; 96361; 99284; J7030

== ENCOUNTER 2024-09-04 17:48 | Inpatient (IN) | payer OTHER, SELFPAY ==
[2024-09-04] MEDS ORDERED: NA CHLORIDE 0.9% 1,000 ML ONE ×2 (18:13→19:42)
[2024-09-04] MEDS ORDERED: MORPHINE 4 MG/ML SYR ONE ×2 (18:13→19:41)
[2024-09-04] MEDS ORDERED: FAMOTIDINE 20 MG/2 ML VIAL IV ONE (18:13)
[2024-09-04] MEDS ORDERED: ONDANSETRON 4 MG/2 ML VIAL ONE (18:13)
[2024-09-04 18:20] LABS: Absolute Basophils 0.1 K/uL (0-0.5); Absolute Eosinophils 0.2 K/uL (0-0.5); Absolute Lymphocytes (CBC) 2.2 K/uL (0.7-4.9); Absolute Monocytes 0.8 K/uL (0.1-1.3); Absolute Neutrophil 9.3 K/uL (1.8-8.0); Basophils % 0.8 % (0-1.3); Eosinophils % 1.7 % (0-4.4); Hematocrit 42.8 % (39.6-49.0); Lymphocytes % 17.6 % (15.3-44.8); MCH 43.7 pg (27.0-35.0); MPV 7.1 fL (7.6-11.3); Monocytes % 6.6 % (3.3-12.3); Neutrophils % 73.3 % (41.7-73.7); Platelets 342 thou/uL (152-406); RBC Red Blood Cell Count 3.43 M/uL (4.33-5.43); Red Cell Distribution Width 15.2 % (12.1-15.2)
[2024-09-04 18:39] LABS: ALT/SGPT 48 U/L (16-61); AST/SGOT 64 U/L (15-37); Albumin 3.4 g/dL (3.4-5.0); Albumin/Globulin Ratio 0.8 (1.1-1.8); Alkaline Phosphatase 182 U/L (45-117); Anion Gap 12.1 mEq/L (5.0-15.0); BUN Blood Urea Nitrogen 11 mg/dL (7-18); Bicarbonate 27 mEq/L (21-32); Bilirubin Total 0.8 mg/dL (0.2-1.0); Globulin 4.3 g/dL (2.3-3.5); Glomerular Filtration Rate 96 ml/min (=/>90); Glucose Level 191 mg/dL (74-106); Lipase > 5000 U/L (13-75); Potassium 3.1 mEq/L (3.5-5.1); Protein, Total 7.7 g/dL (6.4-8.2); Sodium Level 138 mEq/L (136-145)
--- NOTE | 2024-09-04 18:47 | RAD REPORT ---
EXAMINATION: US Abdomen Exam Limited CLINICAL HISTORY: ABD PAIN Bed Name: 8 COMPARISON: None. TECHNIQUE: Limited upper abdominal grayscale and color flow sonographic images. FINDINGS: Gallbladder: Moderately distended gallbladder. Positive sonographic Copeland sign. Wall is not signific antly thickened, 2 mm. No pericholecystic fluid. Layering sludge near the neck. Bile ducts: No intrahepatic biliary dilatation. Common bile duct measures 13 mm. Liver: Visualized portions of the liver demonstrate normal echogenicity with no suspicious findings. Fluid: No ascites. IMPRESSION: Distended gallbladder with sludge and positive sonographic Copeland sign, raising concern for acute cho lecystitis. Prominence of the common bile duct up to 13 mm. If there is concern for distal obstruction, additiona l evaluation by MRCP or ERCP would be more helpful.
[2024-09-04 19:52] LABS: PTT, Activated Partial Thromb 31.8 SECONDS (27.2-37.4); Protime INR 1.24
--- NOTE | 2024-09-04 20:06 | EDPHYS ---
Physician Documentation [facility] Name: Basil Ibanez Age: 44 yrs Sex: Male : 1980 Arrival Date: 09/04/2024 Time: 17:48 Bed 8 Private MD: ED Physician Nader Singh HPI: 09/04 18:06 This 44 yrs old Male presents to ER via Ambulatory with complaints of Abdominal Pain, kb Vomiting. 18:06 Patient is a 44-year-old male who presents for upper abdominal pain, nausea and kb vomiting that started 2 hours prior to arrival. Reports history of pancreatitis and states he drank a lot more than he should have this weekend. Denies diarrhea or fever. Also reports that he was supposed to have his gallbladder removed but he had to reschedule it.. Historical: - Allergies: 18:00 No Known Allergies; ld1 - PMHx: 18:00 diabetes mellitus; Hypertensive disorder; ld1 - Immunization history:: Adult Immunizations up to date. - Infectious Disease History:: Denies. - Social history:: Smoking status: Patient denies any tobacco usage or history of. ROS: 18:06 Constitutional: As per HPI kb Exam: 18:06 Constitutional: This is a well developed, well nourished patient who is awake, alert, kb and in no acute distress. Head/Face: Normocephalic, atraumatic. ENT: Moist Mucous membranes Cardiovascular: Regular rate Respiratory: Respirations even and unlabored. No increased work of breathing. Talking in full sentences Skin: Warm, dry with normal turgor. Normal color. MS/ Extremity: Pulses equal, no cyanosis. Neurovascular intact. Full, normal range of motion. Neuro: Awake and alert, GCS 15, oriented to person, place, time, and situation. 18:06 Abdomen/GI: Inspection: abdomen appears normal, Bowel sounds: normal, Palpation: soft, in all quadrants, mild abdominal tenderness, in the left upper quadrant, moderate abdominal tenderness, in the right upper quadrant, 19:49 ECG was reviewed by the Attending Physician. kb Vital Signs: 17:59 BP 163 / 113; Pulse 135; Resp 18; Temp 98.9(O); Pulse Ox 98% on R/A; Weight 90.72 kg; ld1 Height 5 ft. 8 in. ; Pain 10/10; 18:21 BP 127 / 86; Pulse 120; Resp 20; Pulse Ox 94% on R/A; Pain 8/10; ll1 18:35 BP 141 / 82; Pulse 117; Resp 18; Pulse Ox 95% on R/A; ap3 19:00 BP 120 / 88; Pulse 105; Resp 18; Pulse Ox 96% ; al5 19:48 BP 143 / 86; Pulse 98; Resp 15; Pulse Ox 94% ; al5 20:00 BP 145 / 99; Pulse 99; Resp 13; Pulse Ox 96% ; al5 20:17 BP 145 / 99; Pulse 94; Resp 18; Temp 98.9; Pulse Ox 97% ; Pain 5/10; bm8 21:15 BP 137 / 87; Pulse 92; Resp 18; Temp 98.9; Pulse Ox 97% ; Pain 0/10; bm8 22:00 BP 130 / 81; Pulse 87; Resp 12; Pulse Ox 96% ; al5 23:00 BP 122 / 79; Pulse 85; Resp 16; Pulse Ox 95% ; al5 09/05 00:00 BP 107 / 72; Pulse 79; Resp 16; Pulse Ox 94% ; al5 09/04 17:59 Body Mass Index 30.41 (90.72 kg, 172.72 cm) ld1 09/04 17:59 Pain Scale: Adult ld1 18:21 Pain Scale: Adult ll1 20:17 Pain Scale: Adult bm8 21:15 Pain Scale: Adult bm8 [place] Coma Score: 09/04 20:17 Eye Response: spontaneous(4). Motor Response: obeys commands(6). Verbal Response: bm8 oriented(5). Total: 15. 21:15 Eye Response: spontaneous(4). Motor Response: obeys commands(6). Verbal Response: bm8 oriented(5). Total: 15. MDM: 17:51 Medical Screening Exam initiated kb 18:07 Data reviewed: vital signs, nurses notes. kb 19:55 Differential diagnosis: cholecystitis, Cholelithiasis, gastritis, gastroesophageal kb reflux disease, non-specific abd pain, pancreatitis. Consideration of Admission/Observation Patient was admitted/placed on observation. Escalation of care including admission/observation considered. Management of patient was discussed with the following: Sulfonation Equipment Operator: Dr Suarez accepts pt for consult. Counseling: I had a detailed discussion with the patient and/or guardian regarding the historical points, exam findings, and any diagnostic results supporting the discharge/admit diagnosis, lab results, radiology results, the need for further work-up and treatment in the hospital. 20:04 Management of patient was discussed with the following: Hospitalist: Dr Zayas accepts pt kb for admission. 09/04 18:05 Order name: CBC with Diff kb 09/04 18:05 Order name: CMP; Complete Time: 18:41 kb 09/04 18:05 Order name: Lipase; Complete Time: 18:41 kb 09/04 19:09 Order name: Blood Culture Adult (2) kb 09/04 19:09 Order name: Lactate w/ 2H reflex if indic.; Complete Time: 20:05 kb 09/04 19:09 Order name: Protime (+inr); Complete Time: 19:53 kb 09/04 19:09 Order name: Ptt, Activated; Complete Time: 19:53 kb 09/04 20:07 Order name: Ghost Lactate-NO COLLECT Timer [facility] 09/04 20:40 Order name: Procalcitonin [facility] 09/04 20:40 Order name: Acute Hepatitis Panel [facility] 09/04 20:40 Order name: Acute Hepatitis Panel [facility] 09/04 20:40 Order name: CBC with Automated Diff [facility] 09/04 20:40 Order name: CBC with Automated Diff [facility] 09/04 20:40 Order name: Comprehensive Metabolic Panel [facility] 09/04 20:40 Order name: Comprehensive Metabolic Panel [facility] 09/04 20:40 Order name: Lipase [facility] 09/04 20:40 Order name: Lipase [facility] 09/04 20:40 Order name: Lipid Profile [facility] 09/04 20:40 Order name: Lipid Profile [facility] 09/04 20:40 Order name: Protime (+INR) [facility] 09/04 20:40 Order name: Protime (+INR) [facility] 09/04 20:40 Order name: PTT, Activated Partial Thromb [facility] 09/04 20:40 Order name: PTT, Activated Partial Thromb [facility] 09/04 20:40 Order name: Troponin High Sensitivity [facility] 09/04 20:40 Order name: Troponin High Sensitivity [facility] 09/04 22:05 Order name: CBC Smear Scan [facility] 09/04 22:56 Order name: Lactate Sepsis 2 HR Follow-up ED[facility] 09/04 18:05 Order name: Abdomen Limited US; Complete Time: 18:48 kb 09/04 18:05 Order name: CT Abd/Pelvis - IV Contrast Only kb 09/04 20:39 Order name: CONS Physician Consult [facility] 09/04 18:05 Order name: IV Saline Lock; Complete Time: 18:15 kb 09/04 18:05 Order name: Labs collected and sent; Complete Time: 18:15 kb 09/04 19:09 Order name: EKG - Nurse/Tech; Complete Time: 19:49 kb EC:49 Rate is 100 beats/min. Rhythm is regular. QRS [place] is Normal. UT interval is normal at kb 144 msec. QRS interval is normal at 80 msec. QT interval is prolonged at 508 msec. Administered Medications: 18:21 Drug: Famotidine IVP 20 mg IVP once; dilute with 10 mL 0.9% NaCl; give over 2 minutes ll1 Route: IVP; Site: left antecubital; 19:49 Follow up: Response: No adverse reaction bm8 18:21 Drug: Ondansetron IVP 4 mg IVP once; over 2 minutes Route: IVP; Site: left antecubital; ll1 19:49 Follow up: Response: No adverse reaction bm8 18:21 Drug: morphine IVP or IV 4 mg IVP once over 4 mins {Note: pain 8/10 RASS 0.} Route: ll1 IVP; Infused Over: 4 mins; Site: left antecubital; 19:50 Follow up: Response: No adverse reaction bm8 18:21 Drug: NS 0.9% IV 1000 ml IV at 1 bolus Per protocol; to be given as a bolus over 60 ll1 minutes Route: IV; Rate: 1 bolus; Site: left antecubital; 19:49 Follow up: Response: No adverse reaction; IV Status: Completed infusion bm8 19:49 Drug: morphine IVP or IV 4 mg IVP once over 4 mins Route: IVP; Infused Over: 4 mins; bm8 Site: right antecubital; 21:16 Follow up: Response: No adverse reaction bm8 19:49 Drug: NS 0.9% IV 1000 ml IV at 125 ml/hr once; to be given as a bolus over 60 minutes bm8 Route: IV; Rate: 125 ml/hr; Site: right antecubital; 21:16 Follow up: Response: No adverse reaction; IV Status: Infusion continued upon admission bm8 20:17 Drug: Piperacillin-Tazobactam IVPB 3.375 grams IVPB once over 60 mins; (mix in NS 100 bm8 mL) Route: IVPB; Infused Over: 60 mins; Site: right antecubital; 21:15 Follow up: Response: No adverse reaction; IV Status: Completed infusion bm8 Disposition Summary: 09/04/24 20:05 Hospitalization Ordered Notes: Hospitalization Status: Inpatient Admission kb Provider: Mela Zayas Condition: Stable kb Problem: new kb Symptoms: are unchanged kb Bed/Room Type: Standard kb Location: Intensive Care Unit(09/05/24 05:29) rv1 Room Assignment: 2-(09/05/24 05:29) rv1 Diagnosis - Acute cholecystitis kb - Other acute pancreatitis without necrosis or infection kb - Severe sepsis without septic shock kb Forms: - Medication Reconciliation Form kb - SBAR form kb - Leadership Thank You Letter kb Addendum: 09/07/2024 07:01 Co-signature as Attending Physician, Nader Singh MD I reviewed the patient's care r n provided by the Advanced Practice Provider and agree with the diagnosis and treatment plan. Signatures: Dispatcher [employer] EDLucero Ford, QUIRK SANDER-C QUIRK SANDER-Ckb Nader Singh MD MD rn Lewis, Lynsay, RN RN ll1 Raven Yee RN RN ld1 Christi Ruiz rv1 Yoandy Rouse, RN RN bm8 Corrections: (The following items were deleted from the chart) 09/04 18:05 18:05 CBC+H.LAB.BRZ ordered. EDMS EDMS 18:05 18:05 COMPREHENSIVE METABOLIC PANEL+C.LAB.BRZ ordered. EDMS EDMS 18:05 18:05 LIPASE+C.LAB.BRZ ordered. EDMS EDMS 18:05 18:05 Abdomen Limited+US.RAD.BRZ ordered. EDMS EDMS 18:05 18:05 Abdomen Pelvis W Con+CT.RAD.BRZ ordered. EDMS EDMS 21:04 20:05 Telemetry/MedSurg (Inpatient) kb rv1 21:04 20:05 kb rv1 09/05 05:09/04 21:04 [facility] ER HOLD rv1 rv1 04/29 05:29 04/28 21:04 ERHOLD- rv1 rv1
--- NOTE | 2024-09-04 20:06 | ER ---
Nurse's Notes [facility] Name: Basil Ibanez Age: 44 yrs Sex: Male : 1980 Arrival Date: 09/04/2024 Time: 17:48 Bed 8 Private MD: Diagnosis: Acute cholecystitis;Other acute pancreatitis without necrosis or infection;Severe sepsis without septic shock Presentation: 09/04 17:59 Chief complaint: Patient states: Abdominal pain, N/V X 2 hours. Coronavirus screen: At ld1 this time, the client does not indicate any symptoms associated with coronavirus-19. Ebola Screen: No symptoms or risks identified at this time. Initial Sepsis Screen: Does the patient meet any 2 criteria? No. Patient's initial sepsis screen is negative. Does the patient have a suspected source of infection? No. Patient's initial sepsis screen is negative. Risk Assessment: Do you want to hurt yourself or someone else? Patient reports no desire to harm self or others. Onset of symptoms was September 04, 2024 at 18:00. 17:59 Method Of Arrival: Ambulatory ld1 17:59 Acuity: AC 3 ld1 Triage Assessment: 18:00 General: Appears in no apparent distress. uncomfortable, Behavior is cooperative, ld1 appropriate for age, anxious. Pain: Complains of pain in abdomen Pain does not radiate. Pain currently is 8 out of 10 on a pain scale. Quality of pain is described as throbbing, Pain began suddenly, Is continuous. EENT: No signs and/or symptoms were reported regarding the EENT system. Neuro: Level of Consciousness is awake, alert, obeys commands, Oriented to person, place, time, situation. Cardiovascular: Capillary refill < 3 seconds Patient's skin is warm and dry. Respiratory: Airway is patent Respiratory effort is even, unlabored. GI: Abdomen is round non-distended, Reports lower abdominal pain, upper abdominal pain, nausea, vomiting. : No signs and/or symptoms were reported regarding the genitourinary system. Derm: No signs and/or symptoms reported regarding the dermatologic system. Musculoskeletal: No signs and/or symptoms reported regarding the musculoskeletal system. Historical: - Allergies: 18:00 No Known Allergies; ld1 - PMHx: 18:00 diabetes mellitus; Hypertensive disorder; ld1 - Immunization history:: Adult Immunizations up to date. - Infectious Disease History:: Denies. - Social history:: Smoking status: Patient denies any tobacco usage or history of. Screenin:16 [facility] ED Fall Risk Assessment (Adult) History of falling in the last 3 months, ap3 including since admission No falls in past 3 months (0 pts) Confusion or Disorientation No (0 pts) Intoxicated or Sedated No (0 pts) Impaired Gait No (0 pts) Mobility Assist Device Used No (0 pt) Altered Elimination No (0 pt) Score/Fall Risk Level 0 - 2 = Low Risk Oriented to surroundings, Maintained a safe environment, Educated pt \T\ family on fall prevention, incl call for assistance when getting out of bed, Assessed \T\ reinforced patient's understanding of fall precautions, Hourly rounding (assess needs \T\ fall precautionary measures) done, Used ambulatory aids as needed (educated on \T\ assisted with). Abuse screen: Denies threats or abuse. Nutritional screening: No deficits noted. Tuberculosis screening: No symptoms or risk factors identified. Assessment: 18:15 General: Appears uncomfortable, Behavior is calm, cooperative, appropriate for age. ap3 Pain: Complains of pain in abdomen. Neuro: Level of Consciousness is awake, alert, obeys commands, Oriented to person, place, time, situation, Appropriate for age. Cardiovascular: Patient's skin is warm and dry. Respiratory: Airway is patent Respiratory effort is even, unlabored, Respiratory pattern is regular, symmetrical. GI: Bowel sounds present X 4 quads. Abd is soft Reports upper abdominal pain, nausea, vomiting. 18:22 Reassessment: No changes from previously documented assessment. Patient and/or family ll1 updated on plan of care and expected duration. Pain level reassessed. 19:50 Reassessment: Patient appears in no apparent distress at this time. Patient and/or bm8 family updated on plan of care and expected duration. Pain level reassessed. Patient is alert, oriented x 3, equal unlabored respirations, skin warm/dry/pink. Pain: Complains of pain in abdomen Pain currently is 6 out of 10 on a pain scale. Neuro: Level of Consciousness is awake, alert, obeys commands, Oriented to person, place, time, situation, Appropriate for age. Cardiovascular: Capillary refill < 3 seconds in bilateral fingers Patient's skin is warm and dry. Respiratory: Airway is patent Respiratory effort is even, unlabored, Respiratory pattern is regular, symmetrical. GI: Reports upper abdominal pain, Pain is 6 out of 10 on a pain scale. 21:15 Reassessment: Patient appears in no apparent distress at this time. Patient and/or bm8 family updated on plan of care and expected duration. Pain level reassessed. Patient is alert, oriented x 3, equal unlabored respirations, skin warm/dry/pink. Patient states feeling better. Patient states symptoms have improved. Vital Signs: 17:59 BP 163 / 113; Pulse 135; Resp 18; Temp 98.9(O); Pulse Ox 98% on R/A; Weight 90.72 kg; ld1 Height 5 ft. 8 in. ; Pain 10/10; 18:21 BP 127 / 86; Pulse 120; Resp 20; Pulse Ox 94% on R/A; Pain 8/10; ll1 18:35 BP 141 / 82; Pulse 117; Resp 18; Pulse Ox 95% on R/A; ap3 19:00 BP 120 / 88; Pulse 105; Resp 18; Pulse Ox 96% ; al5 19:48 BP 143 / 86; Pulse 98; Resp 15; Pulse Ox 94% ; al5 20:00 BP 145 / 99; Pulse 99; Resp 13; Pulse Ox 96% ; al5 20:17 BP 145 / 99; Pulse 94; Resp 18; Temp 98.9; Pulse Ox 97% ; Pain 5/10; bm8 21:15 BP 137 / 87; Pulse 92; Resp 18; Temp 98.9; Pulse Ox 97% ; Pain 0/10; bm8 22:00 BP 130 / 81; Pulse 87; Resp 12; Pulse Ox 96% ; al5 23:00 BP 122 / 79; Pulse 85; Resp 16; Pulse Ox 95% ; al5 09/05 00:00 BP 107 / 72; Pulse 79; Resp 16; Pulse Ox 94% ; al5 09/04 17:59 Body Mass Index 30.41 (90.72 kg, 172.72 cm) ld1 09/04 17:59 Pain Scale: Adult ld1 18:21 Pain Scale: Adult ll1 20:17 Pain Scale: Adult bm8 21:15 Pain Scale: Adult bm8 [place] Coma Score: 09/04 20:17 Eye Response: spontaneous(4). Motor Response: obeys commands(6). Verbal Response: bm8 oriented(5). Total: 15. 21:15 Eye Response: spontaneous(4). Motor Response: obeys commands(6). Verbal Response: bm8 oriented(5). Total: 15. ED Course: 17:50 Patient arrived in ED. mr 17:51 Joo KANG Barker is PSYCHIATRIC. kb 17:51 Nader Singh MD is Attending Physician. kb 18:00 Triage completed. ld1 18:00 Radha Shah, MARVIN is Primary Nurse. ap3 18:00 Arm band placed on right wrist. ld1 18:07 Patient has correct armband on for positive identification. Bed in low position. Call ap3 light in reach. Side rails up X2. Client placed on continuous cardiac and pulse oximetry monitoring. NIBP monitoring applied. bus monitor on. Pulse ox on. NIBP on. 18:14 Initial lab(s) drawn, by me, sent to lab. Inserted saline lock: 22 gauge in right ap3 antecubital area, using aseptic technique. Blood collected. Flushed with 10 mL NS. 18:37 Abdomen Limited US In Process Unspecified. EDMS 19:11 CT Abd/Pelvis - IV Contrast Only In Process Unspecified. EDMS 19:50 Inserted saline lock: 22 gauge in left antecubital area, using aseptic technique. Blood oe collected. Flushed with 10 mL NS. 19:51 EKG done, by ED staff, reviewed by Lucero KAPADIA. oe 19:51 Blood Culture Adult (2) Sent. oe 19:51 Lactate w/ 2H reflex if indic. Sent. oe 19:51 Protime (+inr) Sent. oe 19:51 Ptt, Activated Sent. oe 19:52 Warm blanket given. oe 20:05 Mela Zayas MD is Hospitalizing Provider. kb 20:17 Provided Education on: need for admission. bm8 20:17 No provider procedures requiring assistance completed. Patient admitted, IV remains in bm8 place. Administered Medications: 18:21 Drug: Famotidine IVP 20 mg IVP once; dilute with 10 mL 0.9% NaCl; give over 2 minutes ll1 Route: IVP; Site: left antecubital; 19:49 Follow up: Response: No adverse reaction bm8 18:21 Drug: Ondansetron IVP 4 mg IVP once; over 2 minutes Route: IVP; Site: left antecubital; ll1 19:49 Follow up: Response: No adverse reaction bm8 18:21 Drug: morphine IVP or IV 4 mg IVP once over 4 mins {Note: pain 8/10 RASS 0.} Route: ll1 IVP; Infused Over: 4 mins; Site: left antecubital; 19:50 Follow up: Response: No adverse reaction bm8 18:21 Drug: NS 0.9% IV 1000 ml IV at 1 bolus Per protocol; to be given as a bolus over 60 ll1 minutes Route: IV; Rate: 1 bolus; Site: left antecubital; 19:49 Follow up: Response: No adverse reaction; IV Status: Completed infusion bm8 19:49 Drug: morphine IVP or IV 4 mg IVP once over 4 mins Route: IVP; Infused Over: 4 mins; bm8 Site: right antecubital; 21:16 Follow up: Response: No adverse reaction bm8 19:49 Drug: NS 0.9% IV 1000 ml IV at 125 ml/hr once; to be given as a bolus over 60 minutes bm8 Route: IV; Rate: 125 ml/hr; Site: right antecubital; 21:16 Follow up: Response: No adverse reaction; IV Status: Infusion continued upon admission bm8 20:17 Drug: Piperacillin-Tazobactam IVPB 3.375 grams IVPB once over 60 mins; (mix in NS 100 bm8 mL) Route: IVPB; Infused Over: 60 mins; Site: right antecubital; 21:15 Follow up: Response: No adverse reaction; IV Status: Completed infusion bm8 Medication: 20:17 VIS not applicable for this client. bm8 Outcome: 20:05 Decision to Hospitalize by Provider. kb 21:15 Admitted to ER Hold. Please see [facility] for further documentation. bm8 21:15 Condition: stable 21:15 Instructed on the need for admit, Demonstrated understanding of follow-up care, medications, 09/05 05:36 Patient left the ED. bm8 Signatures: Dispatcher [employer] EDMS Lucero Ge, JOSHUA-C FAMILY CONSUMER SCIENTIST-Ckb Rocio Moeller, Reg Reg mr BustamanteYsosi Amanda, RN RN ap3 Alireza Em RN RN ll1 Raven Yee, RN RN ld1 Yoandy Rouse, RN RN bm8 Radha Marie, RN RN al5
[2024-09-04] MEDS ORDERED: PIPERACIL/TAZO 3.375 GM VIAL IV ONE (20:07)
[2024-09-04] MEDS ORDERED: NA CHLORIDE 0.9% 100 ML ONE (20:07)
--- NOTE | 2024-09-04 20:10 | RAD REPORT ---
EXAMINATION: CT Abdomen Pelvis W Contrast CLINICAL INDICATION: Male, 44 years old. ABD PAIN TECHNIQUE: CT abdomen and pelvis was performed, after the administration of IV contrast, as [facility]. Axial, sagittal and coronal reconstructions were obtained. One or more of the following dose reduction techniques were used: Automated exposure control, adjustment of the mA and k V according to patient size, and iterative reconstruction. Unless otherwise specified, incidental findings do not require dedicated imaging follow-up. COMPARISON: 08/11/2024 and 02/13/2024 FINDINGS: LOWER CHEST: The visualized lung bases are clear. LIVER: Normal in size and contour. No focal lesion. BILIARY SYSTEM: Moderately distended gallbladder. Prominent caliber of the common bile duct up to 12 mm. No radiopaque calculi. The extrahepatic biliary distention could be reactive, related to the ongoing pancreatic process. Following resolution of any acute findings, if there is persistent clinic al concern for biliary obstruction, additional evaluation by MRCP or ERCP may be helpful.. SPLEEN: Normal size. No focal lesion. PANCREAS: No mass, ductal dilation, or hanh-pancreatic fluid. ADRENALS: Small left adrenal ovoid nodule measuring 2 cm, stable. KIDNEYS: Normal size and contour. No hydronephrosis. URINARY BLADDER: Decompressed limiting evaluation. GASTROINTESTINAL TRACT: Mild fluid distention of proximal jejunum with gradual transition towards non distended bowel No evidence of free air, significant intra-abdominal free fluid, focal transition point, or abscess. APPENDIX: Normal appendix. LYMPH NODES: Mildly prominent bilateral inguinal lymph nodes, stable, could be reactive.. MUSCULOSKELETAL: No acute or suspicious osseous abnormality. ADDITIONAL FINDINGS: None. IMPRESSION: Findings of acute interstitial pancreatitis, without evidence of necrosis or peripancreatic collectio ns. Mild ileus of the proximal jejunum. Other findings as above. THIS REPORT CONTAINS FINDINGS THAT MAY BE CRITICAL TO PATIENT CARE. The findings were verbally commun icated via telephone to JOSHUA Green on 09/04/2024 8:04 PM.
[2024-09-04] MEDS ORDERED: HYDROMORPHONE HCL 0.5 MG/0.5 ML INJ ONE (20:29)
[2024-09-04] MEDS ORDERED: ONDANSETRON 4 MG/2 ML VIAL IV PRN (20:34)
[2024-09-04] MEDS: HYDROMORPHONE HCL 0.5 MG/0.5 ML INJ IV PRN (20:35)
--- NOTE | 2024-09-04 20:38 | P.HP ---
Certification for Inpatient Patient admitted to: Inpatient With expected LOS: >2 Midnights Practitioner: I am a practitioner with admitting privileges, knowledge of patient current condition, hospital course, and medical plan of care. Services: Services provided to patient in accordance with Admission requirements found in Title 42 Section 412.3 of the Code of Federal Regulations Patient History Date of Service: 09/04/24 Reason for admission: Acute abdominal pain History of Present Illness: Patient is a 44-year-old gentleman who came to the hospital with severe abdominal pain. Pain was mainly epigastric region with no rebound or guarding. Patient states that his pain was not improving and he decided to come into the ER for further evaluation. Patient has had similar pain about 6 months ago. At that time he was drinking alcohol and was told he had acute pancreatitis. He denies being a heavy drinker and he only drinks socially. However, the last few times he has gone drinking socially he has had significant abdominal pain. On his last visit to the hospital in February he was transferred to [facility] where he ended up staying in the hospital for about 6 to 7 days. It was advised for him to get a laparoscopic cholecystectomy once his pancreatitis had cooldown, but unfortunately patient did not make it for follow-up. Patient has been having intractable nausea and vomiting and pain for last 12 hours. He came into the emergency room for further evaluation. In the ER he was found to have a lipase greater than 5000. Patient's imaging studies revealed acute pancreatitis. Patient had an ultrasound which suggested acute cholecystitis but patient's LFTs are not really suggestive of significant gallbladder infection. At this time patient will be admitted for treatment of his acute pancreatitis with aggressive IV hydration and pain control. Patient will be kept NPO. Patient has severe pain and has significant pancreatitis although his Sergio criteria suggest a decrease mortality it would be best to probably wait for surgical intervention once his pancreas cools down. At this time patient will be admitted for inpatient hospitalization. Allergies No Known Allergies Allergy (Unverified 12/26/22 23:39) Home Medications: lisinopriL [Lisinopril] 20 mg DAILY 12/26/22 Metformin HCl [Glucophage*] 500 mg PO BID 09/04/24 - Past Medical/Surgical History Diabetic: Yes -: Hypertension -: Pancreatitis -: None Psychosocial/ Personal History: 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, is employed with an office job - Family History Mother Medical History: Diabetes Father Medical History: Heart disease, Stroke - Social History Smoking Status: Never smoker Alcohol use: Yes CD- Drugs: No Caffeine use: Yes Review of Systems 10-point ROS is otherwise unremarkable Physical Examination - Vital Signs Temperature: 98 F Blood Pressure: 150/90 Pulse: 99 Respirations: 22 Pulse Ox (%): 95 - Physical Exam General: Alert, In no apparent distress, Oriented x3 HEENT: Atraumatic, PERRLA, Mucous membr. moist/pink, EOMI, Sclerae nonicteric Neck: Supple, 2+ carotid pulse no bruit, No LAD, Without JVD or thyroid abnormality Respiratory: Clear to auscultation bilaterally, Normal air movement Cardiovascular: Regular rate/rhythm, Normal S1 S2 Gastrointestinal: Hypoactive, Soft and benign, Non-distended, No guarding, Tenderness, Rebound Musculoskeletal: No clubbing, No swelling, No tenderness Integumentary: No rashes Neurological: Normal gait, Normal speech, Normal strength at 5/5 x4 extr, Normal tone, Sensation intact, Cranial nerves 3-12 intact, Normal affect Lymphatics: No axilla or inguinal lymphadenopathy - Studies Laboratory Data (last 24 hrs) 09/04/24 09/04/24 09/04/24 19:16 18:13 18:13 WBC 12.70 H Hgb 15.0 Hct 42.8 Plt Count 342 PT 14.0 H INR 1.24 APTT 31.8 Sodium 138 Potassium 3.1 L BUN 11 Creatinine 0.98 Glucose 191 H Total Bilirubin 0.8 AST 64 H ALT 48 Alkaline Phosphatase 182 H Lipase > 5000 H Assessment & Plan - Problems (Diagnosis) (1) Acute pancreatitis Current Visit: Yes Status: Acute (2) Diabetes Current Visit: No Status: Acute Qualifiers: Diabetes mellitus type: type 2 Diabetes mellitus complication status: with other specified complication - Plan Plan: 1. Acute pancreatitis; alcoholic pancreatitis versus gallstone pancreatitis. Leaning more towards alcoholic pancreatitis as patient's LFTs are mildly elevated. Patient's AST is slightly elevated as is patient's alkaline phosphatase. There is no significant elevation in the bilirubin. Patient's lipase is greater than 5000. Both times these episodes have occurred has been after he has been drinking. He does have gallstones and it may be prudent to remove his gallbladder once he is clinically stabilized. Currently in the setting of acute pancreatitis will probably allow his pancreas to cool down before surgical intervention. Will treat him currently for his acute pancreatitis and once his pancreatitis is stabilized then patient can schedule for outpatient follow-up for an elective laparoscopic cholecystectomy. Patient was advised to no longer drink. Will continue monitoring patient's labs during hospital stay. Patient is resting criteria for the first 24 hours was evaluated in patient currently with less than 1% mortality. Will reassess over the next 48 hours. Patient will be admitted for inpatient hospitalization. Discharge Plan: Home Plan to discharge in: Greater than 2 days - Advance Directives Does patient have a Living Will: No Does patient have a Durable POA for Healthcare: No - Code Status/Comfort Care Code Status Assessed: Yes Code Status: Full Code Critical Care: No Time Spent Managing PTS Care (In Minutes): 45
[2024-09-04] MEDS ORDERED: chlordiazePOXIDE HCl 5 MG CAP PO ONE (21:27)
[2024-09-04] MEDS: chlordiazePOXIDE HCl 5 MG CAP PO SCH (21:32)
[2024-09-04] MEDS: NA CHLORIDE 0.9% 1,000 ML IV SCH (21:32)
[2024-09-04 22:05] LABS: Blood Morphology Comment NOT SEEN (NOT SEEN); Platelet Estimate ADEQ; White Blood Cell Scan OK (OK)
[2024-09-05] MEDS ORDERED: HYDROMORPHONE HCL 0.5 MG/0.5 ML INJ ONE ×2 (00:53→03:48)
[2024-09-05] MEDS ORDERED: NA CHLORIDE 0.9% 1,000 ML ONE (03:48)
[2024-09-05 04:37] LABS: Absolute Eosinophils 0.1 K/uL (0-0.5); Absolute Lymphocytes (CBC) 1.6 K/uL (0.7-4.9); Absolute Monocytes 0.3 K/uL (0.1-1.3); Absolute Neutrophil 6.6 K/uL (1.8-8.0); Basophils % 0.4 % (0-1.3); Hematocrit 33.4 % (39.6-49.0); Hemoglobin 11.8 g/dL (13.6-17.9); MCH 43.7 pg (27.0-35.0); MCHC 35.2 g/dL (32.0-36.0); MPV 6.8 fL (7.6-11.3); Neutrophils % 76.6 % (41.7-73.7); Nucleated Red Blood Cells % 0.1 % (0-0); Platelets 242 thou/uL (152-406); RBC Red Blood Cell Count 2.69 M/uL (4.33-5.43); Red Cell Distribution Width 14.8 % (12.1-15.2)
[2024-09-05 04:39] LABS: PT Prothrombin Time 14.1 SECONDS (10-13.0); PTT, Activated Partial Thromb 29.6 SECONDS (27.2-37.4); Protime INR 1.25
[2024-09-05 04:48] LABS: MCV 124.3 fL (80-100)
[2024-09-05 04:52] LABS: Albumin 2.7 g/dL (3.4-5.0); Albumin/Globulin Ratio 0.8 (1.1-1.8); Anion Gap 5.8 mEq/L (5.0-15.0); Bilirubin Total 0.6 mg/dL (0.2-1.0); Globulin 3.2 g/dL (2.3-3.5); Potassium 3.8 mEq/L (3.5-5.1); Protein, Total 5.9 g/dL (6.4-8.2); Troponin High Sensitivity 13.6 pg/mL (<58.9)
[2024-09-05 05:42] LABS: Hepatitis B Core IgM Nonreactive (Nonreactive); Hepatitis B surface AG Interp. Nonreactive (Nonreactive); Hepatitis C Virus Ab Nonreactive (Nonreactive)
[2024-09-05 05:43] LABS: HBsAG Nonreactive Report Report
[2024-09-05] MEDS: HYDROMORPHONE HCL 0.5 MG/0.5 ML INJ IV PRN (06:28)
[2024-09-05] MEDS: LORazepam 2 MG/ML VIAL IV ONE (11:03)
--- NOTE | 2024-09-05 11:45 | EKG ---
Test Date: 2024-09-04 Test Time: 19:45:16 [employer]: TIFF MEASUREMENT RESULTS: Intervals: Rate: 100 AR: 144 QRSD: 80 QT: 394 QTc: 508 [place]: P: 64 AR: 144 QRS: 45 T: 63 INTERPRETIVE STATEMENTS: Normal sinus rhythm Cannot rule out Anterior infarct, age undetermined Prolonged QT Abnormal ECG Compared to ECG 08/11/2024 20:36:23 Prolonged QT interval now present Sinus tachycardia no longer present Myocardial infarct finding still present Electronically Signed On 09-05-24 11:45:18 CDT by Chang Craft
[2024-09-05] MEDS ORDERED: D10W 125 ML IV PRN (11:50)
[2024-09-05] MEDS ORDERED: GLUCAGON 1 MG/VIAL IM PRN (11:50)
--- NOTE | 2024-09-05 11:50 | P.PN ---
Subjective Date of Service: 09/05/24 Chief Complaint: Acute abdominal pain Subjective: No chest pain or shortness of breath. No nausea or vomiting. c/o abdominal pain. No obvious bleeding. Looks comfortable in the bed. Objective: General appearance: Alert and comfortable CVS: Normal S1 and S2 Lungs: Clear to auscultation bilaterally Abdomen: Soft, bowel sounds present, tenderness present in the epigastric area Extremities: No lower extremity edema Physical Examination - Vital Signs Temperature: 98 F Blood Pressure: 150/90 Pulse: 99 Respirations: 16 Pulse Ox (%): 100 - Studies Laboratory Data (last 24 hrs) 09/04/24 09/04/24 09/04/24 19:16 18:13 18:13 WBC 12.70 H Hgb 15.0 Hct 42.8 Plt Count 342 PT 14.0 H INR 1.24 APTT 31.8 Sodium 138 Potassium 3.1 L BUN 11 Creatinine 0.98 Glucose 191 H Total Bilirubin 0.8 AST 64 H ALT 48 Alkaline Phosphatase 182 H Lipase > 5000 H Assessment And Plan - Plan 1. Acute pancreatitis; alcoholic pancreatitis versus gallstone pancreatitis, more of alcoholic pancreatitis, drinking heavily over the weekend, AST is elevated. - Will get an MRCP - Continue n.p.o., IV fluids and pain medications. - Ultrasound showed gallbladder sludge, CT showed pancreatitis, ileus - Surgery consult requested. - Advised to quit alcohol. 2. Acute anemia: Secondary to acute illness and hemodilution, monitor closely. 3. Leukocytosis: Probably secondary to hemoconcentration, resolved, monitor closely. Follow-up on cultures. 4. Hypertension: Resume home medications soon. 5. Diabetes mellitus type 2: Hold metformin, start sliding scale insulin for now. I did discuss all the above plan with the patient, he understands and agrees with the plan. Discussed with nursing staff and case management team.
--- NOTE | 2024-09-05 12:44 | RAD REPORT ---
EXAMINATION: MR CHOLANGIOGRAM CLINICAL INDICATION: Male, 44 years old. gallstones, pancreatitis TECHNIQUE: Multiplanar, multisequence MR imaging of the abdomen without intravenous contrast, and wit h specific attention to the biliary system. Unless otherwise specified, incidental findings do not require dedicated imaging follow-up. 3D MIP reconstruction performed. COMPARISON: 09/04/2024 FINDINGS: GALLBLADDER: No stones, wall thickening, or pericholecystic fluid. BILE DUCTS: No biliary ductal dilatation. Common duct slightly prominent as it traverses the pancreat ic head measuring 8 mm however no evidence of filling defect within the duct. LIVER: Normal in size, contour, and signal without evidence of fatty infiltration or iron deposition. No focal lesion. PANCREAS: There is subtle inflammation surrounding the pancreatic head suggesting mild pancreatitis. Subtle inflammation also seen adjacent to the pancreatic tail. LYMPH NODES: No lymphadenopathy. ADDITIONAL FINDINGS: Nodular enlargement left adrenal gland, measuring up to 15 mm. IMPRESSION: There is no evidence of filling defect within the common duct to suggest choledocholithiasis. There i s slight prominence of the duct as it traverses the pancreatic head measuring 8 mm. Subtle inflammation seen adjacent to the pancreatic head and tail likely indicating mild pancreatitis . No localized fluid collections.
[2024-09-05] MEDS: INSULIN REGULAR (HUMAN) 100 UNIT/ML SQ SCH (16:06)
[2024-09-06 05:58] LABS: Albumin 2.4 g/dL (3.4-5.0); Albumin/Globulin Ratio 0.8 (1.1-1.8); Anion Gap 7.7 mEq/L (5.0-15.0); Bilirubin Direct 0.3 mg/dL (0-0.2); Bilirubin Indirect, Calculated 0.3 mg/dL (0.2-0.8); Bilirubin Total 0.6 mg/dL (0.2-1.0); Globulin 3.2 g/dL (2.3-3.5); Potassium 3.7 mEq/L (3.5-5.1); Protein, Total 5.6 g/dL (6.4-8.2)
[2024-09-06 07:37] LABS: Absolute Basophils 0.1 K/uL (0-0.5); Absolute Eosinophils 0.2 K/uL (0-0.5); Absolute Lymphocytes (CBC) 1.4 K/uL (0.7-4.9); Absolute Monocytes 0.3 K/uL (0.1-1.3); Basophils % 1.2 % (0-1.3); Hematocrit 31.6 % (39.6-49.0); Hemoglobin 11.1 g/dL (13.6-17.9); Lymphocytes % 18.2 % (15.3-44.8); MCH 44.1 pg (27.0-35.0); MCHC 35.2 g/dL (32.0-36.0); MCV 125.4 fL (80-100); Monocytes % 3.2 % (3.3-12.3); Neutrophils % 75.4 % (41.7-73.7); Nucleated Red Blood Cells % 0.1 % (0-0); Platelets 205 thou/uL (152-406); RBC Red Blood Cell Count 2.52 M/uL (4.33-5.43); Red Cell Distribution Width 14.5 % (12.1-15.2)
[2024-09-06] MEDS ORDERED: KETOROLAC 30 MG/ML INJ ONE (10:47)
[2024-09-06] MEDS ORDERED: LIDOCAINE 2% MPF 5 ML VIAL ONE (10:47)
[2024-09-06] MEDS ORDERED: dexAMETHasone 10 MG/ML VIAL ONE (10:47)
[2024-09-06] MEDS ORDERED: ONDANSETRON 4 MG/2 ML VIAL ONE (10:47)
[2024-09-06] MEDS ORDERED: FENTANYL CITR 100 MCG/2 ML ONE (10:47)
[2024-09-06] MEDS ORDERED: propofoL 200 MG/20 ML VIAL IV ONE (10:47)
[2024-09-06] MEDS ORDERED: MIDAZOLAM HCL 2 MG/2 ML INJ ONE (10:48)
[2024-09-06] MEDS ORDERED: ROCURONIUM 50 MG/5 ML VIAL IV ONE (10:48)
[2024-09-06] MEDS: LIDOCAINE HCL/EPINEPHRINE 20 ML MDV ONE (11:00)
[2024-09-06] MEDS: PIPER TAZO 3.375 GM in NA CHLORIDE 0.9% 100 ML IV ONE (11:20)
--- NOTE | 2024-09-06 12:07 | P.PN ---
Subjective Date of Service: 09/06/24 Chief Complaint: Acute abdominal pain Subjective: No chest pain or shortness of breath. No nausea or vomiting. c/o abdominal pain. No obvious bleeding. Looks comfortable in the bed. Objective: General appearance: Alert and comfortable CVS: Normal S1 and S2 Lungs: Clear to auscultation bilaterally Abdomen: Soft, bowel sounds present, mild tenderness present in the epigastric area Extremities: No lower extremity edema Physical Examination - Vital Signs Temperature: 97.2 F Blood Pressure: 143/92 Pulse: 75 Respirations: 16 Pulse Ox (%): 98 Assessment And Plan - Plan 1. Acute pancreatitis; alcoholic pancreatitis versus gallstone pancreatitis, more of alcoholic pancreatitis, drinking heavily over the weekend, AST is elevated. - MRCP showed pancreatitis, left adrenal enlargement, no choledocholithiasis - Continue n.p.o., IV fluids and pain medications. - Ultrasound showed gallbladder sludge, CT showed pancreatitis, ileus - Surgery consult requested. - Advised to quit alcohol. - Plan for cholecystectomy today. 2. Acute anemia: Secondary to acute illness and hemodilution, monitor closely. 3. Leukocytosis: Probably secondary to hemoconcentration, resolved, monitor closely. Follow-up on cultures, negative so far. 4. Hypertension: Resume home medications soon. 5. Diabetes mellitus type 2: Hold metformin, continue sliding scale insulin for now. 6. Left adrenal enlargement on MRI scan: Follow-up with PCP. I did discuss all the above plan with the patient, he understands and agrees with the plan. Discussed with nursing staff and case management team.
--- NOTE | 2024-09-06 12:51 | P.OP ---
Preoperative diagnosis: Cholecystitis Postoperative diagnosis: Cholecystitis Primary procedure: Laparoscopic Cholecystectomy with ICG Cholangiography Anesthesia: GETA + Local Estimated blood loss: 20cc Specimen: Gallbladder Findings: Severe adhesions to gallbladder Complications: None Transferred to: Recovery Room Condition: Good
[2024-09-06] MEDS: NA CHLORIDE 0.9% 1,000 ML ONE (13:43)
[2024-09-06] MEDS: HYDROMORPHONE HCL 1 MG/ML INJ ONE (13:58)
[2024-09-06] MEDS: FENTANYL CITR 100 MCG/2 ML ONE (14:11)
--- NOTE | 2024-09-06 14:19 | CON ---
Date of Consultation: 09/05/2024 Brief History Of Present Illness: The patient is a 44-year-old male who has a history of alcohol and possible gallstone pancreatitis in the past, who presents with recurrent severe abdominal pain, lucy lar in the previous history to his past episodes of pancreatitis he has had. He was hospitalized at that time. Ultimately, he was told he should have his gallbladder removed and had scheduled to have a gallbladder removed. However, he fell off and was lost to follow up at that time with his surgeon. As such, he had a recurrent episode of pancreatitis. He is unsure if this is related to alcohol or to his previous gallstone issues he states he has been diagnosed with. He states he has not been dr inking much alcohol as of late and is unsure if this is related to his episodes of pancreatitis. He had in this episode similar intractable nausea, vomiting, pain, and that was the reason for his recur rence as he felt he had similar episodes before to his pancreatitis in the past. Past Medical History: Pancreatitis, hypertension, diabetes. Allergies: NO KNOWN DRUG ALLERGIES. Home Medications: Include lisinopril, Glucophage. Social History: He lives at home with family. He is employed, an office job. He denies smoking, dr inks alcohol recreationally. Denies recreational drug use. Family History: Significant for diabetes, heart disease and stroke in his father. Review of Systems: 10-point review of systems other than HPI, he denies. Physical Examination: General: He is awake, alert, and oriented. Psychiatric: Appropriate, conversive. HEENT: He is normocephalic. Sclerae anicteric. Mucous membranes are moist. Oropharynx is clear. Neck: Supple. No JVD. Chest: Normal to expansion and excursion. Cardiovascular: Regular rate and rhythm. Pulmonary: Clear to auscultation bilaterally. Abdomen: Soft with positive epigastric and right upper quadrant tenderness to palpation. No focal p eritonitis. Mild rebound is evident. Mild voluntary guarding. Copeland sign is positive during the t kay of my examination, but weakly positive. Extremities: No clubbing, cyanosis or edema. Skin: Warm and dry. Laboratory Data: Revealed a white blood cell count of 8.6, hemoglobin 11.8, hematocrit 33.4, platele t count was 242. His PT 14, INR 1.25, PTT is 29.6. His sodium was 141, potassium 3.8, chloride 107, carbon dioxide is , BUN 13, creatinine 0.72, glucose was 132, total bilirubin 0.6, AST 43, ALT 34, alkaline phosphatase 128. His lipase is 1165, down from greater than 5000 on admission. Pr ocalcitonin is 0.1. He had imaging performed, which included a CT abdomen, which is officially read as findings of acute interstitial pancreatitis without evidence of necrosis or peripancreatic collect ions. Mild ileus and proximal jejunum. Moderately distended gallbladder, prominent caliber of the c ommon bile duct up to 12 mm. No radiopaque calculi. The extrahepatic biliary distention could be re active from pancreatic process. Additionally, he had an ultrasound which was officially read as dist ended gallbladder with sludge and a positive sonographic Copeland's, raising concern for cholecystitis. Prominence of the common bile duct up to 13 mm. He additionally had a followup MRCP, which is offi cially read as there is no evidence of filling defects with common bile duct to suggest choledocholit hiasis. There is slight prominence of the duct as it traversed the pancreatic head measuring 8 mm. Subtle inflammation seen just at the pancreatic head and tail likely indicating mild pancreatitis. N o localized fluid collections. Assessment And Plan: This is a 44-year-old man who comes in with signs and symptoms of pancreatitis of either biliary and/or alcoholic etiology as he states his workup included a recommendation on his last admission for cholecystectomy, but he was lost to follow up. I have agreed that cholecystectomy is appropriate in his clinical setting. However, I have explained that it is likely or possibly hig hly also contributing factor to his alcohol abuse to his case of pancreatitis and as such, I have rec ommended complete alcohol cessation in addition to his laparoscopic cholecystectomy. I have explaine d the risks, benefits, and alternatives of laparoscopic cholecystectomy with indocyanine green cholan giography, including but not limited to bleeding, infection, damage to surrounding tissues, injury to bile ducts, intestines, blood clots, heart attack, strokes, other unforeseen complications in the pe rioperative period, need for further operation and procedures. Patient displayed understanding of th e above-stated plan and agreed to proceed as indicated. When the patient's pancreatitis resolves, we will proceed with laparoscopic cholecystectomy as indicated above. Continue medical management per primary team. ARACELI/AZALEA Voice ID: [id number] Report ID: [id number]
[2024-09-06] MEDS: HYDROCODONE/APAP 5/325 MG TAB PO PRN (14:57)
[2024-09-06] MEDS: HYDROCODONE/APAP 10/325 TAB PO PRN (17:55)
--- NOTE | 2024-09-06 20:34 | OP ---
Date of Procedure: 09/06/2024 Surgeon: Mick Suarez MD, Preoperative Diagnosis: Cholecystitis. Postoperative Diagnosis: Cholecystitis. Procedure Performed: Laparoscopic cholecystectomy with indocyanine green cholangiography. Anesthesia: General endotracheal plus local with 1% lidocaine with epinephrine. Estimated Blood Loss: 20 cc. Specimen: Gallbladder. Findings: Significant adhesions to the anterior surface of the gallbladder and inflammatory changes consistent with previous history of pancreatitis evident on this admission. Complications: Patient had no complications. Disposition: Patient transferred to recovery room in good condition. Procedure In Detail: After informed consent was obtained, patient was brought to the operating room, and prepped and draped in the usual sterile fashion after adequate anesthesia was achieved. I anest hetized the supraumbilical area down to subcutaneous tissues. A 5-mm 0-degree optical trocar was int roduced into the abdomen without incident or complication. Insufflation was obtained to 15 mmHg, at this time. There was no injury to vital structures upon entry into the abdomen. 3 additional trocar s were placed, 1 in the epigastrium, 1 in the right upper quadrant, 1 in the right mid to lower abdom en. All of these were 5 mm trocar, placed under direct vision without incident or complication. The umbilical trocar was then upsized to a 12 mm under direct vision without incident or complication. The patient was then placed in a head up right-side up position. Ratcheted grasper was used to grasp the patient's gallbladder, which was found to be quite distended. It was decompressed at this point with significant bilious drainage, at this point, dissected down to the Ofelia pouch of the gallbl adder, but significant adhesions were appreciated to the anterior surface of the gallbladder with thi ck inflammatory rind over the surface, making the dissection timely and meticulous. After I got down to the Ofelia pouch of the gallbladder, I performed an indocyanine green cholangiography, confirme d the position of the cystic duct and common duct junction ultimately and skeletonizing 2 structures identified both cystic duct and cystic artery. These structures were skeletonized. A critical view of safety was obtained, at this point. I then performed indocyanine green cholangiography to confirm the position of the cystic duct and common duct junction to be far from transection point with clips in place. At this point, I appreciated this area and found it to be of adequate distance at the cys tic duct and common duct confluence. However, the cystic duct was short. At this point, I ligated t hese structures with Endo Jimmie after they were placed doubly on the proximal side and singly on thi s side of both cystic duct and cystic artery. At this point, the gallbladder was removed from the he patic fossa without incident or complication, placed in an EndoCatch bag and removed through the umbi lical trocar site, sent off for pathologic examination. Minimal fulguration was required to the hepa tic bed, at this point. The insufflation was obtained, at this point. I irrigated the area copiousl y multiple times, cleared out until completely dry. The liver had overall fatty steatosis type appea catherine to the area. I then suctioned out the remaining effluent. The patient was positioned back in neutral position. I suctioned out the remaining effluent, closed the 12 mm trocar site using a Nancy damon-Lorin suture passer with 0 Vicryl in an interrupted fashion with good approximation of tissues. The abdomen was then desufflated under direct vision without incident or complication. Remainder of the trocars were removed. All skin incisions were then copiously irrigated and closed with a 4-0 Mo nocryl in a running fashion. Dermabond was placed over top. The patient tolerated the procedure wit hout incident or complication, transferred to PACU in good condition. All counts were correct at the end of the case. ARACELI/AZALEA Voice ID: [id number] Report ID: [id number]
[2024-09-07 05:21] LABS: Absolute Basophils 0.1 K/uL (0-0.5); Absolute Lymphocytes (CBC) 1.2 K/uL (0.7-4.9); Absolute Monocytes 0.5 K/uL (0.1-1.3); Absolute Neutrophil 10.5 K/uL (1.8-8.0); Basophils % 0.4 % (0-1.3); Eosinophils % 0.1 % (0-4.4); Hematocrit 30.1 % (39.6-49.0); Hemoglobin 10.9 g/dL (13.6-17.9); Lymphocytes % 9.6 % (15.3-44.8); MCH 45.3 pg (27.0-35.0); MCHC 36.2 g/dL (32.0-36.0); MCV 125.1 fL (80-100); MPV 6.6 fL (7.6-11.3); Monocytes % 3.9 % (3.3-12.3); Platelets 219 thou/uL (152-406); Red Cell Distribution Width 14.5 % (12.1-15.2)
[2024-09-07 05:39] LABS: Albumin 2.3 g/dL (3.4-5.0); Albumin/Globulin Ratio 0.7 (1.1-1.8); Bilirubin Direct 0.3 mg/dL (0-0.2); Bilirubin Indirect, Calculated 0.3 mg/dL (0.2-0.8); Bilirubin Total 0.6 mg/dL (0.2-1.0); Globulin 3.4 g/dL (2.3-3.5); Protein, Total 5.7 g/dL (6.4-8.2)
[2024-09-07 05:45] LABS: Band Neutrophils 3 % (0-1); Basophilic Stippling 1+; Blood Morphology Comment NOTED (NOT SEEN); Differential Total Cells Count 100; Lymphocytes 14 % (15-42); Macrocytosis 3+; Monocytes 2 % (0-10); Platelet Estimate ADEQ; Segmented Neutrophils 81 % (40-80)
[2024-09-07 11:07] VITALS: O2SAT 96
--- NOTE | 2024-09-07 13:34 | P.PN ---
Subjective Date of Service: 09/07/24 Chief Complaint: Acute abdominal pain Subjective: No chest pain or shortness of breath. No nausea or vomiting. c/o abdominal pain but improving. No obvious bleeding. Looks comfortable in the bed. Tolerating liquid diet well so far. Objective: General appearance: Alert and comfortable CVS: Normal S1 and S2 Lungs: Clear to auscultation bilaterally Abdomen: Soft, bowel sounds present, mild tenderness present in the epigastric area Extremities: No lower extremity edema Physical Examination - Vital Signs Temperature: 97.3 F Blood Pressure: 130/76 Pulse: 80 Respirations: 20 Pulse Ox (%): 97 Assessment And Plan - Plan 1. Acute pancreatitis; alcoholic pancreatitis versus gallstone pancreatitis, more of alcoholic pancreatitis, drinking heavily over the weekend, AST is elevated. - MRCP showed pancreatitis, left adrenal enlargement, no choledocholithiasis - Continue pain medications. - Ultrasound showed gallbladder sludge, CT showed pancreatitis, ileus - Surgery consult on board - Advised to quit alcohol. - had cholecystectomy 09/06. - DC IV fluids, advance diet as per surgical team. - Continue IV antibiotics for now. 2. Acute anemia: Secondary to acute illness and hemodilution, monitor closely. 3. Leukocytosis: Probably reactive, monitor closely. 4. Hypertension: Resume home medications soon. 5. Diabetes mellitus type 2: Hold metformin, continue sliding scale insulin for now. 6. Left adrenal enlargement on MRI scan: Follow-up with PCP. I did discuss all the above plan with the patient, he understands and agrees with the plan. Discussed with nursing staff and case management team. Probably home tomorrow if tolerates diet and pain controlled.
[2024-09-07] MEDS: PIPER TAZO 3.375 GM in NA CHLORIDE 0.9% 100 ML IV SCH (17:10)
[2024-09-08] MEDS: HYDRALAZINE HCL 20 MG/ML VIAL IV PRN (01:22)
[2024-09-08] MEDS ORDERED: HYDRALAZINE HCL 20 MG/ML VIAL IV PRN (04:13)
[2024-09-08 05:55] LABS: Absolute Basophils 0.1 K/uL (0-0.5); Absolute Eosinophils 0.1 K/uL (0-0.5); Absolute Lymphocytes (CBC) 1.4 K/uL (0.7-4.9); Absolute Monocytes 0.4 K/uL (0.1-1.3); Absolute Neutrophil 6.7 K/uL (1.8-8.0); Basophils % 0.8 % (0-1.3); Eosinophils % 0.7 % (0-4.4); Hematocrit 33.8 % (39.6-49.0); Hemoglobin 11.9 g/dL (13.6-17.9); Lymphocytes % 16.2 % (15.3-44.8); MCH 44.1 pg (27.0-35.0); MCHC 35.3 g/dL (32.0-36.0); MPV 6.7 fL (7.6-11.3); Monocytes % 4.6 % (3.3-12.3); Neutrophils % 77.7 % (41.7-73.7); Nucleated Red Blood Cells % 0.1 % (0-0); Platelets 263 thou/uL (152-406); Red Cell Distribution Width 14.7 % (12.1-15.2)
[2024-09-08 05:57] LABS: MCV 125.1 fL (80-100)
[2024-09-08 06:16] LABS: Albumin 2.5 g/dL (3.4-5.0); Albumin/Globulin Ratio 0.7 (1.1-1.8); Anion Gap 7.4 mEq/L (5.0-15.0); Bilirubin Direct 0.7 mg/dL (0-0.2); Bilirubin Indirect, Calculated 0.3 mg/dL (0.2-0.8); Globulin 3.5 g/dL (2.3-3.5); Potassium 3.4 mEq/L (3.5-5.1)
[2024-09-08 06:37] VITALS: BMI 32.2
[2024-09-08] MEDS ORDERED: NA CHLORIDE 0.9% 100 ML ONE (08:04)
[2024-09-08] MEDS: KCL 20 MEQ/100 mL IVPB 20 MEQ/100 ML BAG IV SCH (10:00)
[2024-09-08 10:26] VITALS: BP 154/87; TEMP 98.1
--- NOTE | 2024-09-08 10:56 | P.DS ---
Admission Date: 09/04/24 Discharge Date: 09/08/24 Disposition: ROUTINE DISCHARGE Discharge Condition: GOOD Reason for Admission: Acute abdominal pain Consultations: surgery - Problems (1) Acute pancreatitis Current Visit: Yes Status: Acute Hospital Course: 44 yo male admitted with abdominal pain. lipase > 5000 on admission. surgery consulted. MRCP done. abx started. had cholecystectomy on 09/06. abx given. chronic conditions including htn, DM. Left adrenal enlargement seen. Follow-up MRI Vital Signs/Physical Exam: Temp Pulse Resp BP Pulse Ox 98.1 F 89 18 154/87 H 94 09/08/24 08:00 09/08/24 08:00 09/08/24 08:00 09/08/24 08:00 09/08/24 08:00 General: Alert, In no apparent distress HEENT: Atraumatic, Normocephalic Respiratory: Normal air movement Cardiovascular: No edema Gastrointestinal: Normal bowel sounds Musculoskeletal: Other Integumentary: No rashes, No breakdown Neurological: Normal speech Laboratory Data at Discharge: WBC 8.70 thou/uL (4.3-10.9) 09/08/24 05:38 Hgb 11.9 g/dL (13.6-17.9) L D 09/08/24 05:38 Hct 33.8 % (39.6-49.0) L 09/08/24 05:38 Plt Count 263 thou/uL (152-406) 09/08/24 05:38 PT 14.1 SECONDS (10-13.0) H 09/05/24 04:05 INR 1.25 09/05/24 04:05 APTT 29.6 SECONDS (27.2-37.4) 09/05/24 04:05 Sodium 140 mEq/L (136-145) 09/08/24 05:38 Potassium 3.4 mEq/L (3.5-5.1) L D 09/08/24 05:38 BUN 4 mg/dL (7-18) L 09/08/24 05:38 Creatinine 0.73 mg/dL (0.70-1.30) 09/08/24 05:38 Glucose 106 mg/dL (74-106) 09/08/24 05:38 Total Bilirubin 1.0 mg/dL (0.2-1.0) 09/08/24 05:38 AST 156 U/L (15-37) H 09/08/24 05:38 ALT 48 U/L (16-61) 09/08/24 05:38 Alkaline Phosphatase 146 U/L (45-117) H 09/08/24 05:38 Triglycerides 148 mg/dL (<150) 09/05/24 04:05 Cholesterol 149 mg/dL (<200) 09/05/24 04:05 HDL Cholesterol 43 mg/dL (40-60) 09/05/24 04:05 Cholesterol/HDL Ratio 3.47 09/05/24 04:05 Lipase 56 U/L (13-75) 09/06/24 04:55 Home Medications: lisinopriL [Lisinopril] 20 mg DAILY 12/26/22 Metformin HCl [Glucophage*] 500 mg PO BID 09/04/24 Amox/Clavulanate [Augmentin 875-125 Tab] 1 each PO BID #14 tab 09/08/24 Hydrocodone 5/APAP 325 [[place] 5/325] 1 tab PO Q6H PRN #9 tab 09/08/24 New Medications: Amox/Clavulanate [Augmentin 875-125 Tab] 1 each PO BID #14 tab Hydrocodone 5/APAP 325 [[place] 5/325] 1 tab PO Q6H PRN #9 tab PRN Reason: Pain Diet: Dickson Activity: No lifting more than 10 lbs Followup: Mick Suarez MD [ACTIVE - CAN ADMIT] - NONE,NONE [Primary Care Provider] -
[2024-09-08] MEDS: POTASSIUM CL SA 10 MEQ TAB PO ONE (11:18)
== END 2024-09-08 13:40 | disposition home or self-care (01) | DRG 417 ==
LOC: ER 17:48 → ERHOLD 20:34 → 3RD-ICU 09-05 05:37
PROVIDERS: ADMIT Hospitalist; ATTEND Internal Medicine
PROC: BF52200 Other Imaging of Gallbladder using Fluorescing Agent, Indocyanine Green Dye, Intraoperative (ICD-10-PCS; 2024-09-06)
PROC: 0FT44ZZ Resection of Gallbladder, Percutaneous Endoscopic Approach (ICD-10-PCS; principal; 2024-09-06 11:00)
DX: K81.0 Acute cholecystitis (principal); K85.20 Alcohol induced acute pancreatitis without necrosis or infection; K56.7 Ileus, unspecified; E11.9 Type 2 diabetes mellitus without complications; I10 Essential (primary) hypertension; D63.8 Anemia in other chronic diseases classified elsewhere; Z79.84 Long term (current) use of oral hypoglycemic drugs; Z79.899 Other long term (current) drug therapy
CPT/HCPCS: 36415; 74177; 74181; 76705; 80048; 80053; 80061; 80074; 80076; 82947; 83605; 83690; 84145; 84484; 85025; 85610; 85730; 87040; 88304; 93005; 99285; J0360; J1100; J1171; J2003; J2250; J2405; J2543; J2704; J3010; J7030; Q9967